=== PATIENT | female | born 1935 | race Caucasian/White ===

== ENCOUNTER 2019-06-24 17:57 | Inpatient (IN) | payer MEDICARE, OTHER, SELFPAY ==
[2019-06-24 18:04] VITALS: BMI 23.4
[2019-06-24 18:08] VITALS: BP 173/103; PULSE 50; RESP 18; TEMP 36.5; O2SAT 97
--- NOTE | 2019-06-24 18:10 | ED_ITS ---
Entered by Conrado Cassidy, acting as scribe for Monique Ga HPI - Abdominal Pain General: Chief Complaint: Abdominal Pain Stated Complaint: BACK AND ABD PAIN Time Seen by Provider: 06/24/19 18:14 History of Present Illness: HPI narrative: 84 yo female presents with abd and back pain. Pt states that all of her pain radiates to her left flank pain. She has had nausea but has not vomited. She denies any fevers or chills. She denies any vaginal discharge or bleeding. She does think in the past she is had a left ovarian cyst. Patient otherwise denies any complaints or concerns. MD elicited complaint: abdominal pain Associated Symptoms: Denies chills, coffee ground emesis, constipation, GI cramping, diarrhea, dysuria, fever(s), hematochezia, hematuria, hematemesis, melena, nausea, syncope and vomiting Review of Systems General: Reports: other (negative unless marked) Const: Denies: fever, chills, body aches, fatigue, malaise or diaphoresis Eyes: Denies: change in vision or blurry vision ENMT: Denies: throat pain, painful swallowing, hoarseness, ear pain, ear discharge, Change in hearing or nasal discharge Card: Denies: chest pain, palpitations, irregular heart rhythm, syncope, pre- syncope, shortness of breath on exertion or shortness of breath when lying down Resp: Denies: shortness of breath, productive cough, non-productive cough, wheezing, coughing up blood or chest congestion GI: Reports: abdominal pain; Denies: nausea, vomiting, vomiting blood, coffee grounds in vomit, diarrhea, constipation, cramping, blood in stool or black tarry stool : Reports: flank pain; Denies: painful urination, urinary frequency, urinary urgency, decreased urine ouput, urinary incontinence or blood in urine Musc: Denies: neck pain, back pain, extremity pain, extremity swelling, joint pain, joint swelling, joint warmth or joint stiffness Skin/Breast: Denies: rash, skin tenderness or yellow skin Neuro: Denies: headache, numbness in extremities, weakness in extremities, changes in sensation, lack of coordination, difficulty walking, dizziness, vert igo or confusion Endo: Denies: excessive thirst, tired all the time, cold intolerance, excessive sweating, flushing or hot flashes Nba/Lymph: Denies: easy bruising, easy bleeding, petechiae or enlarged lymph nodes All/Imm: Denies: hives, throat swelling, tongue swelling, facial swelling or acute wheezing PFSH ED PFSH: Medical History (Updated 06/25/19 @ 00:13 by Monique Ga) Diabetes GERD (gastroesophageal reflux disease) Hypertension Osteoporosis Uterine cancer Surgical History (Updated 06/24/19 @ 18:35 by Conrado Cassidy) H/O arthroplasty H/O arthroscopy Social History Smoking and tobacco status: former smoker Physical Exam Const: COMMON NORMALS: no apparent distress, oriented x3, no limitations, healthy appearing and well nourished EXAM LIMITATIONS: no altered mental status GENERAL APPEARANCE: cooperative, well kempt and well developed ORIENTATION/CONSCIOUSNESS: Yes awake HENMT: COMMON NORMALS: normocephalic, head/scalp atraumatic, hearing grossly normal bilaterally, external ears normal, EAC's normal, external nose normal and moist oral mucous membranes HEAD & SCALP: normal to inspection, normocephalic and atraumatic FACE & SINUS: normal facial exam and face symmetric NOSE: external nose normal and nares normal EXTERNAL EAR: Yes external ears normal EXTERNAL AUDITORY CANAL: EAC's normal MOUTH: oral and palatal mucosa normal and tongue normal Eye: COMMON NORMALS: PERRL, EOMs intact bilaterally, conjunctivae normal and no scleral icterus GENERAL EYE: normal appearance of both eyes and normal light reflex CONJUNCTIVA: Yes conjunctivae normal SCLERA: sclerae normal CORNEA: Yes corneas normal PUPIL: Yes PERRL DIRECT OPHTHALMOSCOPY: Yes normal light reflex Neck/C-Spine: COMMON NORMALS: full ROM, no lymphadenopathy, supple, no meningeal signs and no JVD GENERAL: Yes normal visual inspection and Yes trachea midline CERVICAL SPINE: Yes cervical ROM normal Chest: COMMONS NORMALS: inspection of chest normal and palpation of chest normal Resp: COMMON NORMALS: normal respiratory effort, no retractions, no use of accessory muscles and clear to auscultation bilaterally EFFORT & INSPECTION: Yes able to speak in complete sentences AUSCULTATION: clear to auscultation bilaterally Cardio: COMMON NORMALS: no JVD, regular rate, regular rhythm, S1 normal heart sound, S2 normal heart sound, no gallops, no clicks, no murmurs and no rub JUGULAR VENOUS DISTENTION: no JVD RATE: regular rate RHYTHM: regular rhythm HEART SOUNDS: S1 normal and S2 normal GI: COMMON NORMALS: soft to palpation and no masses INSPECTION: Yes normal to inspection PALPATION: Yes soft and Yes tender : BLADDER/KIDNEY EXAM: Yes CVA tenderness Back/Pelvis: GENERAL BACK: Yes CVA tenderness Extremity: COMMON NORMALS: normal to inspection, full ROM, normal capillary refill, no joint enlargement, no clubbing, cyanosis or edema and no calf tenderness Neuro: COMMON NORMALS: oriented x3, CN's II-XII intact bilaterally, moves all extremities, no focal motor deficits and no sensory deficits noted MENINGEAL SIGNS: Yes no meningeal signs Psych: COMMON NORMALS: mental status grossly normal, thought process normal, cooperative, affect normal, speech normal and activity/motor behavior normal APPEARANCE: Yes well kempt SPEECH: Yes normal speech THOUGHT PROCESS: normal thought process Skin: COMMON NORMALS: no rashes or lesions noted, skin turgor normal, no jaundice, no petechiae and no mottling GENERAL SKIN EXAM: no rashes or lesions noted and turgor normal Course Vital Signs: Vital signs: Vital Signs Temperature 97.7 F 06/24/19 18:08 Pulse Rate 76 06/24/19 20:06 Respiratory Rate 18 06/24/19 21:27 Blood Pressure 168/85 06/24/19 20:06 Pulse Oximetry 96 06/24/19 21:27 MDM - Abdominal Pain MDM Narrative: Medical decision making narrative: Melissa is a nice 84-year-old female who comes in complaining of left flank pain. Incidentally she had a finding of dilated intra-and extrahepatic bile ducts. Ultrasound does not reveal any signs of cholecystitis and she does not have any laboratory abnormalities consistent with common bile duct stone. Patient's pain is all on the left side and it does appear as though she has some type of obstruction either a stone or stricture in the proximal ureter. She has associated hydronephrosis and she also has a UTI. I reviewed the case in full with Dr. Castillo and he agrees to consult on the patient would like her n.p.o. after midnight. I reviewed the case with Dr. Tucker and she is agreeable to admission. Lab Data: Attestation: I reviewed the patient's lab results. Labs: Lab Results 06/24/19 06/24/19 06/24/19 Range/Units 18:28 18:28 21:19 WBC 11.4 H (4.0-10.0) 10^3/ uL RBC 4.13 (4.1-5.3) 10^6/u L Hgb 11.6 (11.5-15.3) g/dL Hct 35.4 L (37.0-47.0) % MCV 85.7 (81-99) fL MCH 28.1 (28.0-34.0) pg MCHC 32.8 (30.0-36.0) g/dL RDW 15.0 (12.1-15.1) % Plt Count 275 (130-400) 10^3/c mm MPV 9.9 (7.4-10.4) fL Neut % (Auto) 71.2 % Lymph % (Auto) 18.8 % [place] % (Auto) 5.3 % Eos % (Auto) 3.8 % Baso % (Auto) 0.5 % Neut # (Auto) 8.1 H (1.8-7.7) 10^3/u L Lymph # (Auto) 2.1 (0.8-4.8) 10^3/u L [place] # (Auto) 0.6 (0.2-0.9) 10^3/u L Eos # (Auto) 0.4 (0.0-0.8) 10^3/u L Baso # (Auto) 0.1 (0.0-0.1) 10^3/u L Nucleated RBC % (a uto) 0 % Nucleated RBCs # 0.0 /100WBC Sodium 140 (136-145) mmol/L Potassium 3.8 (3.5-5.1) mmol/L Chloride 102 (98-107) mmol/L Carbon Dioxide 26 (22-29) mmol/L Anion Gap 15.8 (5-19) BUN 24 H (8-23) mg/dL Creatinine 1.6 H (0.5-0.9) mg/dL Glucose 202 H (65-115) mg/dL Calculated Osmolal ity 293 (285-295) mOsm/k g Lactic Acid (0.5-2.2) mmol/L Calcium 10.0 (8.5-10.5) mg/dL Total Bilirubin 0.2 (0.15-1.2) mg/dL AST 13 (0-32) U/L ALT 10 (0-33) U/L Alkaline Phosphata se 95 (35-105) IU/L Total Protein 7.8 (6.6-8.7) g/dL Albumin 4.0 (3.5-5.2) g/dL Globulin 3.8 (1.3-4.6) g/dL Lipase 45 (13-60) U/L Urine Color Yellow (Yellow) Urine Appearance Cloudy (CLEAR) Urine pH 5 (5-7) Ur Specific Gravit y 1.020 (1.005-1.030) Urine Protein Neg (Negative) Urine Glucose (UA) Norm (Normal) Urine Ketones Negative (Negative) Urine Blood 3+ H (Negative) Urine Nitrate Negative (Negative) Urine Bilirubin Neg (NEGATIVE) Urine Urobilinogen Norm (Negative) mg/dL Ur Leukocyte Talia ase 2+ H (Negative) Urine RBC 10-15 H (0-2) /hpf Urine WBC >100 H (0-5) /hpf Ur Squamous Epith Cells 0-4 H (0-5) Urine Bacteria 3+ H (NONE) 06/24/19 Range/Units 22:30 WBC (4.0-10.0) 10^3/ uL RBC (4.1-5.3) 10^6/u L Hgb (11.5-15.3) g/dL Hct (37.0-47.0) % MCV (81-99) fL MCH (28.0-34.0) pg MCHC (30.0-36.0) g/dL RDW (12.1-15.1) % Plt Count (130-400) 10^3/c mm MPV (7.4-10.4) fL Neut % (Auto) % Lymph % (Auto) % [place] % (Auto) % Eos % (Auto) % Baso % (Auto) % Neut # (Auto) (1.8-7.7) 10^3/u L Lymph # (Auto) (0.8-4.8) 10^3/u L [place] # (Auto) (0.2-0.9) 10^3/u L Eos # (Auto) (0.0-0.8) 10^3/u L Baso # (Auto) (0.0-0.1) 10^3/u L Nucleated RBC % (a uto) % Nucleated RBCs # /100WBC Sodium (136-145) mmol/L Potassium (3.5-5.1) mmol/L Chloride (98-107) mmol/L Carbon Dioxide (22-29) mmol/L Anion Gap (5-19) BUN (8-23) mg/dL Creatinine (0.5-0.9) mg/dL Glucose (65-115) mg/dL Calculated Osmolal ity (285-295) mOsm/k g Lactic Acid 1.7 (0.5-2.2) mmol/L Calcium (8.5-10.5) mg/dL Total Bilirubin (0.15-1.2) mg/dL AST (0-32) U/L ALT (0-33) U/L Alkaline Phosphata se (35-105) IU/L Total Protein (6.6-8.7) g/dL Albumin (3.5-5.2) g/dL Globulin (1.3-4.6) g/dL Lipase (13-60) U/L Urine Color (Yellow) Urine Appearance (CLEAR) Urine pH (5-7) Ur Specific Gravit y (1.005-1.030) Urine Protein (Negative) Urine Glucose (UA) (Normal) Urine Ketones (Negative) Urine Blood (Negative) Urine Nitrate (Negative) Urine Bilirubin (NEGATIVE) Urine Urobilinogen (Negative) mg/dL Ur Leukocyte Talia ase (Negative) Urine RBC (0-2) /hpf Urine WBC (0-5) /hpf Ur Squamous Epith Cells (0-5) Urine Bacteria (NONE) Imaging Data ^: US: Radiologist's impression: Ultrasound pelvis, tech interpretation -evidence of hysterectomy. No ovaries or uterus seen. Discharge Plan Discharge Patient Disposition: Admitted As Inpatient Admit Provider: Saira Tucker Clinical Impression: Acute pyelonephritis Condition: Stable Coding Level of Care Code ED Chainman for Chg Fwd Exam Comprehensive The documentation recorded by the Khanh hendricks Kialy, accurately reflects the service I personally performed and the decisions made by Sury rubalcava Eli N Jun 24, 2019 17:57
[2019-06-24 18:31] LABS: Basophils # 0.1 10^3/uL (0.0-0.1); Basophils % 0.5 %; Eosinophils # 0.4 10^3/uL (0.0-0.8); Eosinophils % 3.8 %; Hematocrit 35.4 % (37.0-47.0); Hemoglobin 11.6 g/dL (11.5-15.3); Lymphocytes # 2.1 10^3/uL (0.8-4.8); Lymphocytes % 18.8 %; Mean Corpuscular HGB Conc 32.8 g/dL (30.0-36.0); Mean Corpuscular Hemoglobin 28.1 pg (28.0-34.0); Mean Corpuscular Volume 85.7 fL (81-99); Mean Platelet Volume 9.9 fL (7.4-10.4); Monocytes # 0.6 10^3/uL (0.2-0.9); Monocytes % 5.3 %; Neutrophils # 8.1 10^3/uL (1.8-7.7); Neutrophils % 71.2 %; Nucleated Red Blood Cells % 0 %; Platelet Count 275 10^3/cmm (130-400); Red Blood Count 4.13 10^6/uL (4.1-5.3); White Blood Count 11.4 10^3/uL (4.0-10.0)
--- NOTE | 2019-06-24 18:31 | CTR_ITS ---
PROCEDURE INFORMATION: Exam: CT Abdomen And Pelvis Without And With Contrast Exam date and time: 06/24/2019 6:46 PM Age: 84 years old Clinical indication: Abdominal pain; Left; Prior surgery; Surgery date: 6+ months; Surgery type: Hyst; Patient HX: L flank pain radiating to front; Additional info: Lt flank/llq pain TECHNIQUE: Imaging protocol: Computed tomography of the abdomen and pelvis without and with intravenous contrast. Total DLP: 830.88 mGy-cm Radiation optimization: All CT scans at this facility use at least one of these dose optimization techniques: automated exposure control; mA and/or kV adjustment per patient size (includes targeted exams where dose is matched to clinical indication); or iterative reconstruction. Contrast material: VISI 320; Contrast volume: 75 ml; Contrast route: 20G; COMPARISON: US pelvic complete* [id number] 06/24/2019 7:12 PM FINDINGS: Liver: There are subcentimeter cysts in the liver with benign features. Follow-up is not necessary. Gallbladder and bile ducts: Cholelithiasis. There is sludge in the gallbladder. There is intrahepatic and extrahepatic ductal dilatation. Pancreas: Normal. No ductal dilation. Spleen: Normal. No splenomegaly. Adrenals: Normal. No mass. Kidneys and ureters: Mild to moderate left hydronephrosis and proximal left hydroureter. There is left perinephric stranding. Approximately 3.4 cm distal to the left UPJ there is some ill-defined increased density within the left ureter and abrupt transition to normal ureteral caliber. This is concerning for stricture and/or other filling defect such as tumor. There is decreased perfusion of the left kidney a relation to the right. Stomach and bowel: Colonic constipation is present. Appendix: No evidence of appendicitis. Intraperitoneal space: Unremarkable. No free air. No significant fluid collection. Vasculature: Calcified plaque is present within multiple vascular structures. Lymph nodes: Unremarkable. No enlarged lymph nodes. Bladder: Unremarkable as visualized. Reproductive: The uterus is not visualized, consistent with hysterectomy. Bones/joints: There are degenerative changes in the visualized spine. Chronic L2 and L3 compression fractures. Soft tissues: Unremarkable. CT/CT abdomen pelvis wo/w [id number] IMPRESSION: 1. There is increased density in the left ureter 3.4 cm distal to the left UPJ raising concern for stricture and/or neoplasm. There are associated obstructive changes as described above. 2. There are stones and sludge in the gallbladder with associated intrahepatic and extrahepatic ductal dilatation. 3. Colonic constipation is present. Radiation Dose CTDIVOL = (mGy): DLP = 830.88 (mGy-cm)
--- NOTE | 2019-06-24 18:33 | USR_ITS ---
PROCEDURE INFORMATION: Exam: US Pelvis Complete, Transabdominal Exam date and time: 06/24/2019 7:25 PM Age: 84 years old Clinical indication: Other: Vague abd pain; Prior surgery; Surgery date: 6+ months; Surgery type: of patient thinks she had hysterectomy many years for ut CA. PT does not remember that surgery. PT has mid line scar from sym to umb; Patient HX: Consensus of all present that she has had a hysterectomy. PT having CT now. TECHNIQUE: Imaging protocol: Real-time transabdominal pelvic ultrasound with image documentation. Complete exam. COMPARISON: CR Hip 2-3v RIGHT wwo Pelv* [id number] 01/20/2019 2:02 PM FINDINGS: Uterus/cervix: Uterus not visualized consistent with history of hysterectomy. Right adnexa: Ovary not visualized. Left adnexa: Ovary not visualized. Free fluid: None. Bladder: Normal. Other findings: Ovaries not visualized. US/US pelvic complete* [id number] IMPRESSION: No abnormalities are seen. The uterus and ovaries are not visualized.
[2019-06-24] MEDS: sodium chloride 0.9% 1,000 ML 100 ML IV ×2 (18:41→22:56)
[2019-06-24] MEDS: ondansetron 2 mg/ML SDV 2 mL 4 MG IVP ×2 (18:44→21:26)
[2019-06-24] MEDS: morphine 4 mg/mL SDV 1 mL IVP ×2 (18:44→21:27)
[2019-06-24 18:48] LABS: Alanine Aminotransferase 10 U/L (0-33); Alkaline Phosphatase 95 IU/L (35-105); Anion Gap 15.8 (5-19); Aspartate Amino Transferase 13 U/L (0-32); Blood Urea Nitrogen 24 mg/dL (8-23); Carbon Dioxide 26 mmol/L (22-29); Chloride 102 mmol/L (98-107); Globulin 3.8 g/dL (1.3-4.6); Glucose 202 mg/dL (65-115); Lipase 45 U/L (13-60); Osmolality Calculated 293 mOsm/kg (285-295); Potassium 3.8 mmol/L (3.5-5.1); Sodium 140 mmol/L (136-145); Total Bilirubin 0.2 mg/dL (0.15-1.2); Total Protein 7.8 g/dL (6.6-8.7)
[2019-06-24 20:06] VITALS: BP 168/85; PULSE 76; RESP 16; O2SAT 94
[2019-06-24] MEDS: sodium chloride 0.9% 1,000 ML 999 ML IV (20:08)
[2019-06-24] MEDS: iodixanol 320 mg/mL 100mL Btl IV (20:24)
--- NOTE | 2019-06-24 20:49 | US_ITS ---
WS: [id number] ABDOMINAL ULTRASOUND REASON FOR EXAM: Abdominal Pain TECHNIQUE: Grayscale and Doppler ultrasound examination of the abdomen. FINDINGS: Pancreas: Within normal limits Abdominal aorta and IVC: Within normal limits Liver: Liver measures 15.55 cm in length. Normal hepatopedal circulation. Gallbladder: Gallbladder wall thickness measures 0.31 cm. Contracted gallbladder with multiple stones . Common bile duct dilated 1.14 cm no stones in the duct were seen. Left kidney: Left kidney measures 9.80 cm x 5.33 cm x 4.98 cm. Benign cystno stones or hydronephrosis . Right kidney: Right kidney measures 9.87 cm x 4.03 cm x 3.81 cm. Benign cysts presentno stones or hyd ronephrosis. Spleen: Spleen measures 9.28 cm US/US abdomen complete* [id number] IMPRESSION: Acute cholecystitis with cholelithiasis Markedly dilated common bile duct. No definite stones in the duct were seen. Benign cyst both kidneys.
[2019-06-24 21:27] VITALS: RESP 18; O2SAT 96
[2019-06-24 21:39] LABS: Add Urine Culture? Yes; Bacteria Urine 3+; Bilirubin Urine Neg (NEGATIVE); Blood Urine 3+ (Negative); Glucose Urine UA Norm (Normal); Ketones Urine Negative (Negative); Leukocyte Esterase Urine 2+ (Negative); Nitrate Urine Negative (Negative); Protein Urine Neg (Negative); Squamous Epithelial Cell Urine 0-4 (0-5); Urine Appearance Cloudy (CLEAR); Urine Color Yellow (Yellow); Urobilinogen Urine Norm (Negative); WBC Urine >100 /hpf (0-5); pH Urine 5 (5-7)
[2019-06-24] MEDS: metoclopramide 5 mg/mL SDV 2 mL 10 MG IV (22:58)
[2019-06-24 23:01] LABS: Lactic Sepsis W/Reflex 1.7 mmol/L (0.5-2.2)
[2019-06-24 23:13] VITALS: BP 138/82; PULSE 74; RESP 16; O2SAT 94
[2019-06-24] MEDS: cefTRIAXone 1,000 MG in sodium chloride 0.9% (plus) 50 ML 100 MG IV (23:40)
[2019-06-25] VITALS (21 sets, daily range): BP systolic 94–142; BP diastolic 52–84; PULSE 68–111; RESP 14–27; TEMP 36.5–38.3; O2SAT 92–99
--- NOTE | 2019-06-25 | SC_ITS ---
WS: [id number] INTRAOPERATIVE TECHNIQUE: 2 Spot fluoroscopic images for intraoperative purposes. FLUOROSCOPY TIME: 37 seconds CLINICAL INFORMATION: PICS FROM OR COMPARISON: None. Clinical history and SC/C-arm FL for Urology IMPRESSION: Images obtained for intraoperative purposes.
--- NOTE | 2019-06-25 | SCC_ITS ---
Procedure Done: Cystoscopy, left ureteral stent placement Left retrograde pyelogram 37 seconds of fluoroscopic guidance, for a cumulative dose of 5.1 mGy, was provided to Dr. Castillo by the radiology department. C-arm images of the abdomen were saved for the patient's permanent record. ESPERANZA
--- NOTE | 2019-06-25 00:29 | P.HP_ITS ---
Providers/Chief Complaint Admitting Physician: Saira Tucker MD Primary Care Provider: Abdi Mack Chief Complaint: BACK AND ABD PAIN History of Present Illness Melissa Fermin is a 84 year old female with PMH HTN, DM, osteoarthritis, h/o uterine ca s/p hysterectomy, h/o recurrent UTIs at least since 3 years treated every 3-4 weeks with recurrent rounds of abx, which help alleviate symptoms for a few weeks at a time. Episodes described as burning micturition, abdominal discofort and foul smelling urine. She had a recent US renal per 's report 1 week ago which showed a renal cyst. She was referred to [facility],but hasnt made appointment yet. Presents today with c/o 3-4 days of recurrent UTI symptoms for which she started taking po abx (doesnt remember name of abx, per review of home meds is nitrofurantoin). This evening when returned from work, he found her to be in severe LLQ pain, doubled over with shaking chills and multiple episodes of vomiting. She was brought to the ER, afebrile on admission but with chills, resolved with iv tylenol. She is currently comfortable and asleep at the time of my evaluation. Vitals are stable. Labs notable for leukocytosis 11.4, cr 1.6 (baseline from 2014 is 1.5). UA with >100WBC, 2+ Leukocyte esterase and 3+ bacteria. Ct KUB with increased density in the left ureter 3.4 cm distal to the left UPJ raising concern for stricture and/or neoplasm with perinephric stranding. Incidental note made of tones and sludge in the gallbladder with associated intrahepatic and extrahepatic ductal dilatation, however LFTs are WNL and no c/o pain in RUQ. Last urine cx from 2013 is with soto-S E.coli. Review of Systems General: Reports: 10 or more systems reviewed and unremarkable except in HPI and below Const: Denies: fever, chills or body aches Eyes: Denies: change in vision, blurry vision or photophobia ENMT: Reports: hoarseness; Denies: throat pain, enlarged tonsils, painful swallowing or nasal congestion Card: Denies: chest pain, palpitations, irregular heart rhythm, edema, swelling of feet/ankles, lightheadedness, pre-syncope, shortness of breath on exertion or shortness of breath when lying down Resp: Denies: shortness of breath, productive cough, non-productive cough, wheezing, stridor, pain on inspiration, change in phlegm color, coughing up blood or chest congestion GI: Denies: abdominal pain, nausea, vomiting, vomiting blood, coffee grounds i n vomit, difficulty swallowing, heartburn/indigestion, diarrhea, constipation, cramping, change in stool character, blood in stool or black tarry stool : Denies: flank pain, difficulty urinating, painful urination, urinary frequency, urinary urgency, urinary hesitancy or blood in urine Musc: Denies: neck pain, back pain, extremity pain, joint swelling, joint warmth or deformity Neuro: Denies: headache, numbness in extremities, weakness in extremities, changes in sensation, difficulty walking, frequent falls, dizziness, vertigo, behavioral changes, slurred speech or seizure-like activity Psych: Denies: anxiety, depression, suicidal ideation or homicidal ideation Endo: Denies: excessive urination, excessive thirst, tired all the time, cold intolerance or hot flashes Nba/Lymph: Denies: easy bruising or easy bleeding Medications/Allergies Home Medications Medication Instructions Recorded Confirmed Last Taken Type Unable to Assess 06/24/19 06/24/19 Unknown History Allergies Allergy/AdvReac Type Severity Reaction Status Date / Time No Known Allergies Allergy Verified 06/24/19 18:07 PFSH Acute PFSH: Medical History Diabetes GERD (gastroesophageal reflux disease) Hypertension Osteoporosis Uterine cancer Surgical History H/O arthroplasty H/O arthroscopy Social History Smoking and tobacco status: former smoker Vitals/I&O/Wt Last Vital Signs Temp 97.7 F 06/24/19 18:08 Pulse 68 06/25/19 00:10 Resp 16 06/25/19 00:10 BP 142/84 06/25/19 00:10 Pulse Ox 94 06/25/19 00:10 Weight last 48 hrs Weight 54.431 kg Physical Exam Narrative: EXAM NARRATIVE: GEN: Awake, alert and oriented, no acute distress, lying comfortably at this time. CVS: S1S2 N RS: CTA B/L Abd: Soft, nt/nd , bs+ FISCAL AGENT: no focal neuro deficits EXT: B/L LE edema, stockings in place Data : 06/24/19 18:28 06/24/19 18:28 Micro: Microbiology 06/24/19 22:35 Blood Culture - Preliminary Blood SPECIMEN COLLECTED 06/24/19 22:30 Blood Culture - Preliminary Blood SPECIMEN COLLECTED A&P Assessment and plan (1) Acute pyelonephritis: Status: Acute Code(s): N10 - Acute pyelonephritis (2) Obstruction of left ureteropelvic junction (UPJ): Status: Acute Code(s): N13.5 - Crossing vessel and stricture of ureter without hydronephrosis Additional A&P Information Admit to med/surg floor 1. Acute pyelopnephritis in the setting of left UPJ juction obstruction Start ceftriaxone 1g iv q24h empirically while awaiting culture results Check blood cultures Dr. Ga from ER discussed case with urology Dr. Castillo, patient likely planned for procedure to relieve obstruction NPO after midnight for same IvF 75 cc/hr until NPO prn zofran for nausea Tylenol, tramadol for pain and fever 2. Hypertension: Home medication list not yet confirmed, she has nifedipine and losartan-HCTZ in review screen. Hold losartan-HCTZ for now, BP 109/66 currently. 3. Hyperlipidemia: atorvastatin 10mg 4. Diabetes mellitus: insulin sliding scale full code DVT ppx: hold tonight, can be started post procedure Attestations Medical Necessity Statement*: >2midnight admission for pyelonephritis with obstruction, need for surgical intervention and iv abx Coding Level of Care Code Acute Certified Driver Examiner for [facility] Fwd Diagnoses Acute pyelonephritis N10 Obstruction of left ureteropelvic junction (UPJ) N13.5
[2019-06-25 01:42] LABS: Glucose Point of Care 185 mg/dL (70-110)
[2019-06-25 06:02] LABS: Basophils # 0.1 10^3/uL (0.0-0.1); Basophils % 0.3 %; Eosinophils % 0.1 %; Hematocrit 36.3 % (37.0-47.0); Hemoglobin 11.6 g/dL (11.5-15.3); Lymphocytes # 0.7 10^3/uL (0.8-4.8); Lymphocytes % 3.5 %; Mean Corpuscular Hemoglobin 27.7 pg (28.0-34.0); Mean Corpuscular Volume 86.6 fL (81-99); Monocytes # 0.6 10^3/uL (0.2-0.9); Neutrophils % 91.9 %; Nucleated Red Blood Cells % 0 %; Platelet Count 227 10^3/cmm (130-400); Red Blood Count 4.19 10^6/uL (4.1-5.3); Red Cell Distribution Width 15.3 % (12.1-15.1); White Blood Count 19.6 10^3/uL (4.0-10.0)
--- NOTE | 2019-06-25 06:09 | P.CONIM_ITS ---
Providers/Reason For Consult Consulting Physican/Specialty*: Castillo/Urology Reason for Consult*: LEFT proximal ureteral obstruction and UTI Requesting SharronanJagdeep Tucker Attending Physician: Saira Tucker MD Primary Care Provider: Abdi Mack History of Present Illness History of Present Illness Melissa Fermin is a 84 year old female admitted through ED last night with abrupt onset of refractory LEFT renal colicky symptoms, severe nausea and emesis, clinical evidence of upper urinary tract UTI including chills. CT findings consistent with LEFT proximal ureteral obstruction of unclear etiology (soft tissue density roughly 3-4 cm below UPJ, not characteristic for stone [ddx: stricture or neoplasm ]). The radiographic and clinical picture, though is more typical for acute obstruction. Additional workup also showed WBC of 11.4, mildly elevated Creatinine, Pyuria and bacteriuria. Complicated by long history of ELIOT consistent with cystitis:dysuria, odor, abdominal pain. Frequent use of antibiotics with improvement temporarily. No recent cultures available. Reportedly on Nitrofurantoin at time of symptomatic increase. Historically it sounds as though she does not completely resolve after antibiotic therapy. Suspicious for chronic cystitis. Other clinical variables include Diabetes, Hypertension, and history of uterine Ca. Admitted for further evaluation and treatment. This morning her white count increased to 19.7, creatinine 2.3. Hemodynamically she is still stable. I have recommended a cystoscopy and left ureteral stent placement with delayed reevaluation of the ureter after infection resolution. Working diagnosis is likely infectious sludge or debris as a cause of her obstructive process as opposed to more chronic stricture or neoplastic process. Review of Systems Const: Reports: fever, chills, fatigue and malaise Eyes: Denies: change in vision or eye redness ENMT: Denies: painful swallowing or oral sores/lesions Card: Denies: chest pain, palpitations or irregular heart rhythm Resp: Denies: shortness of breath, productive cough, non-productive cough or wheezing GI: Reports: abdominal pain, nausea and vomiting; Denies: difficulty swallowing : Reports: flank pain and painful urination Musc: Denies: neck pain or back pain Skin/Breast: Denies: rash or redness Neuro: Denies: headache, weakness in extremities or difficulty walking Psych: Denies: anxiety or depression Endo: Denies: excessive urination or hot flashes Nba/Lymph: Denies: easy bruising or easy bleeding All/Imm: Denies: hives Meds/Allergies Home Medications and Allergies Home Medications Medication Instructions Recorded Confirmed Type ascorbic acid (vitamin C) [Vitamin 500 mg PO DAILY 06/25/19 06/25/19 History C] lisinopril 10 mg PO BEDTIME 06/25/19 06/25/19 History losartan-hydrochlorothiazide 1 tab PO DAILY 06/25/19 06/25/19 History [Hyzaar] nifedipine 60 mg PO DAILY 06/25/19 06/25/19 History nitrofurantoin macrocrystal 100 mg PO Q12H 06/25/19 06/25/19 History Allergies Allergy/AdvReac Type Severity Reaction Status Date / Time No Known Allergies Allergy Verified 06/24/19 18:07 Current Medications Current Medications Generic Name Dose Route Start Last Admin Trade Name Freq PRN Reason Stop Dose Admin Sodium Chloride 1,000 mls @ 100 mls/hr 06/24/19 18:30 06/24/19 18:41 Sodium Chloride 0.9% IV 100 mls/hr .Q10H KURT Administration PFSH Acute PFSH: Medical History Diabetes GERD (gastroesophageal reflux disease) Hypertension Osteoporosis Ureteral obstruction, left Uterine cancer Surgical History H/O arthroplasty H/O arthroscopy Social History Smoking and tobacco status: former smoker Vitals/I&O/Wt Last Vital Signs Temp 98.1 F 06/25/19 04:00 Pulse 96 06/25/19 04:00 Resp 19 H 06/25/19 04:00 BP 90/50 06/25/19 04:00 Pulse Ox 92 06/25/19 04:00 06/24/19 06/24/19 06/25/19 14:59 22:59 06:59 Intake Total 0 / 0 Output Total 300 / 300 Balance -300 / -300 Weight last 48 hrs Weight 120 lb Physical Exam Const: COMMON NORMALS: oriented x3 and alert; negative for healthy appearing GENERAL APPEARANCE: cooperative and well kempt ORIENTATION/CONSCIOUSNESS: not confused HENMT: COMMON NORMALS: normocephalic and head/scalp atraumatic HEAD & SCALP: normocephalic and atraumatic Eye: COMMON NORMALS: conjunctivae normal and no scleral icterus CONJUNCTIVA: Yes conjunctivae normal Neck/C-Spine: COMMON NORMALS: full ROM GENERAL: Yes normal visual inspection Lymph: LYMPHATIC: no lymphadenopathy noted and No lymphedema Chest: COMMONS NORMALS: inspection of chest normal Resp: COMMON NORMALS: normal respiratory effort and clear to auscultation bilaterally EFFORT & INSPECTION: No labored and No actively coughing AUSCULTATION: clear to auscultation bilaterally Cardio: COMMON NORMALS: regular rate and regular rhythm RATE: regular rate RHYTHM: regular rhythm GI: COMMON NORMALS: soft to palpation; negative for non-tender PALPATION: Yes soft, Yes tender Details: LLQ and LUQ and No rebound tenderness present : BLADDER/KIDNEY EXAM: Yes CVA tenderness on the left OTHER: Bladder nondistended. Mildly tender. Back/Pelvis: GENERAL BACK: Yes CVA tenderness Extremity: COMMON NORMALS: no clubbing, cyanosis or edema Neuro: COMMON NORMALS: oriented x3 SENSORIUM/ORIENTATION: Yes alert Psych: COMMON NORMALS: mental status grossly normal and thought process normal APPEARANCE: Yes grossly normal and Yes well kempt ATTITUDE: Yes calm and Yes engaged THOUGHT PROCESS: normal thought process Skin: COMMON NORMALS: no rashes or lesions noted and no jaundice GENERAL SKIN EXAM: no rashes or lesions noted Data Micro: Micro: Microbiology 06/24/19 22:35 Blood Culture - Pr eliminary Blood SPECIMEN [facility] 06/24/19 22:30 Blood Culture - Pr eliminary Blood SPECIMEN [facility] A&P Assessment and plan (1) Ureteral obstruction, left: Demonstrated on CT scan 06/24/2019 performed for left renal colicky symptoms and evidence of UTI. No clear evidence of a stone but there is evidence of a left proximal ureteral soft tissue density of unclear etiology with differential diagnosis including infectious sludge, stricture, neoplastic process. The latter 2 I think are less likely. Recommended emergency left ureteral stent placement. Status: Acute Code(s): N13.5 - Crossing vessel and stricture of ureter without hydronephrosis (2) Acute pyelonephritis: Complicated by history of recurrent UTIs more consistent with chronic cystitis likely incomplete resolution with short course antibiotic therapy over many years. Further complicated by evidence of an acute obstruction of her left proximal ureter on CT scan 06/24/2019 Plan for emergency stent placement. Initially white count was 11.4 but increased to 19.7 overnight. Has remained hemodynamically stable. Status: Acute Code(s): N10 - Acute pyelonephritis (3) Diabetes: Status: Acute Code(s): E11.9 - Type 2 diabetes mellitus without complications (4) Acute kidney injury: Status: Acute Code(s): N17.9 - Acute kidney failure, unspecified Consult Attestations Medical Necessity Statement: Findings consistent with obstructive pyelonephritis necessitating intervention. Coding Level of Care Code Acute Residential Building Inspector for [facility] Fwd Diagnoses Ureteral obstruction, left N13.5 Acute pyelonephritis N10 Diabetes E11.9 Acute kidney injury N17.9
[2019-06-25 06:23] LABS: Anion Gap 18.6 (5-19); Blood Urea Nitrogen 25 mg/dL (8-23); Calcium 9.2 mg/dL (8.5-10.5); Carbon Dioxide 19 mmol/L (22-29); Chloride 103 mmol/L (98-107); Glucose 232 mg/dL (65-115); Osmolality Calculated 288 mOsm/kg (285-295); Potassium 3.6 mmol/L (3.5-5.1); Sodium 137 mmol/L (136-145)
[2019-06-25 06:47] LABS: Glucose Point of Care 222 mg/dL (70-110)
--- NOTE | 2019-06-25 08:12 | P.OP_ITS ---
Operative Report Date of procedure: June 25, 2019 Pre-op Diagnosis: Obstructive pyelonephritis (left proximal ureteral obstruction) Post-op diagnosis: same Procedure Done: Cystoscopy, left ureteral stent placement Left retrograde pyelogram Specimens removed/disposition: 7 [place] by 24 cm double-pigtail stent without string Pathology: none sent Surgeon: Jonathan Anesthesia: General Estimated blood loss: None Urine output: Not measured Complications: None Findings: 7 [place] by 24 cm double-pigtail stent without string placed without difficulty Condition: stable Disposition: PACU Brief History: Melissa is a very pleasant 84-year-old white female who I evaluated for the first time today at the request of the emergency department and the hospitalist service for what appears to be obstructive pyelonephritis on the left. Typical pyelonephritis symptoms at presentation. Long history of recurrent UTIs clinically suspicious for CHRONIC CYSTITIS. Mildly elevated white count and creatinine at evaluation. CT scan in the emergency department showed obstructive changes associated with soft tissue type filling defect (no clear stone) in the left proximal ureter. Treated with antibiotics, given supportive care, and urology consultation Still afebrile this morning but white count had increased to 19.7 and creatinine increased from 1.6-2.3. Recommended emergent left ureteral stent placement Reviewed the need for secondary endoscopic examination procedure after recovery from infection to evaluate the source of the obstruction. Discussed the possibility of a more serious underlying obstructive phenomenon but I expect that it is probably infectious sludge Procedure: After emergent evaluation examination and obtaining of informed consent she was taken to the operating suite on 06/25/2019 where general anesthesia was administered without difficulty after appropriate timeout was performed, SCDs confirmed to be functioning, preoperative antibiotics ad ministered, beta-rhonda protocol confirmed. Prepped and draped in usual sterile fashion in dorsolithotomy position pain careful attention to voiding pressure points. 21 [place] cystoscope with 30 degree lens was introduced into the urethra meatus and advanced into the bladder under videoscopy. The bladder was systematically examined. Flexible tip guidewire was advanced up the left ureter into the area of the left renal pelvis. An open-ended ureteral catheter was advanced over the guidewire guidewire removed small amount of contrast injected to confirm adequate position of the catheter in the collecting system. Wire was replaced. Catheter removed. A 7 [place] by 24 cm double-pigtail stent was advanced over the guidewire through the cystoscope into appropriate position as confirmed via fluoroscopy and cystoscopy. Bladder was drained with a 16 [place] Meyers catheter. She tolerated procedure well without complications and awakened in the operating room and returned to the care of room in stable condition.
--- NOTE | 2019-06-25 08:20 | ANES.PREANE2 ---
Pre-Anesthetic Assessment Pre-Anesthetic Assessment: Height/Weight: Height 1.52 m Weight 54.431 kg Temp Pulse Resp BP Pulse Ox 99.5 F 77 14 94/52 93 06/25/19 07:29 06/25/19 07:29 06/25/19 07:29 06/25/19 07:29 06/25/19 07:29 Preop Diagnosis: Obstructive pyelonephritis (left proximal ureteral obstruction) Proposed Procedure: Operation Date: 06/25/19 08:15 Proposed Procedures p Cystoscopy(Left) - Sven Castillo MD s Ureteral Stent Placement(Left) - Sven Castillo MD Last intake: Intake Last Liquid Date 06/24/19 Last Liquid Time 21:00 Last Solid Date 06/24/19 Last Solid Time 16:00 Social: Social History: Tobacco Pack years: 50+ Comment: quit 7y ago Exam: Pre-Anes Outpt Exam: alert and oriented x 3 CV/HEM: CV/HEM: CAD and HTN Comments: stent : : UTI Comments: left proximal stone Metabolic: Metabolic: DM Neuropsych: Comments: date 06/24/01 President [facility] Anesthetic Plan: ASA status: 3E Anesthesia: General Meds/Allergies Current Medications: Current Medications Generic Name Dose Route Start Last Admin Trade Name Freq PRN Reason Stop Dose Admin Sodium Chloride 1,000 mls @ 100 m ls/hr 06/24/19 18:30 06/24/19 18:41 Sodium Chloride 0.9% IV 100 mls/hr .Q10H KURT Administration Insulin Aspart 0 unit 06/25/19 08:00 06/25/19 07:23 Novolog SUBCUT 2 unit WM&BEDTIME KURT Administration Protocol PFSH Anesthesia PFSH: Medical History (Updated 06/25/19 @ 07:41 by Sven Castillo MD) Acute kidney injury Diabetes GERD (gastroesophageal reflux disease) Hypertension Osteoporosis Ureteral obstruction, left Uterine cancer Surgical History H/O arthroplasty H/O arthroscopy Social History Smoking and tobacco status: former smoker Data Anesthesia CBC & Chem 7: 06/25/19 05:25 06/25/19 05:25 Other Labs: Laboratory Results - last 48 hr 06/24/19 06/24/19 06/24/19 18:28 18:28 21:19 WBC 11.4 H RBC 4.13 Hgb 11.6 Hct 35.4 L MCV 85.7 MCH 28.1 MCHC 32.8 RDW 15.0 Plt Count 275 MPV 9.9 Neut % (Auto) 71.2 Lymph % (Auto) 18.8 Frontier % (Auto) 5.3 Eos % (Auto) 3.8 Baso % (Auto) 0.5 Neut # (Auto) 8.1 H Lymph # (Auto) 2.1 Frontier # (Auto) 0.6 Eos # (Auto) 0.4 Baso # (Auto) 0.1 Nucleated RBC % (auto) 0 Nucleated RBCs # 0.0 Sodium 140 Potassium 3.8 Chloride 102 Carbon Dioxide 26 Anion Gap 15.8 BUN 24 H Creatinine 1.6 H Glucose 202 H POC Glucose Calculated Osmolality 293 Lactic Acid Calcium 10.0 Total Bilirubin 0.2 AST 13 ALT 10 Alkaline Phosphatase 95 Total Protein 7.8 Albumin 4.0 Globulin 3.8 Lipase 45 Urine Color Yellow Urine Appearance Cloudy Urine pH 5 Ur Specific [place] 1.020 Urine Protein Neg Urine Glucose (UA) Norm Urine Ketones Negative Urine Blood 3+ H Urine Nitrate Negative Urine Bilirubin Neg Urine Urobilinogen Norm Ur Leukocyte Esterase 2+ H Urine RBC 10-15 H Urine WBC >100 H Ur Squamous Epith Cells 0-4 H Urine Bacteria 3+ H 06/24/19 06/25/19 06/25/19 22:30 01:39 05:25 WBC 19.6 H RBC 4.19 Hgb 11.6 Hct 36.3 L MCV 86.6 MCH 27.7 L MCHC 32.0 RDW 15.3 H Plt Count 227 MPV 11.0 H Neut % (Auto) 91.9 Lymph % (Auto) 3.5 Frontier % (Auto) 3.0 Eos % (Auto) 0.1 Baso % (Auto) 0.3 Neut # (Auto) 18.0 H Lymph # (Auto) 0.7 L Frontier # (Auto) 0.6 Eos # (Auto) 0.0 Baso # (Auto) 0.1 Nucleated RBC % (auto) 0 Nucleated RBCs # 0.0 Sodium Potassium Chloride Carbon Dioxide Anion Gap BUN Creatinine Glucose POC Glucose 185 Calculated Osmolality Lactic Acid 1.7 Calcium Total Bilirubin AST ALT Alkaline Phosphatase Total Protein Albumin Globulin Lipase Urine Color Urine Appearance Urine pH Ur Specific [place] Urine Protein Urine Glucose (UA) Urine Ketones Urine Blood Urine Nitrate Urine Bilirubin Urine Urobilinogen Ur Leukocyte Esterase Urine RBC Urine WBC Ur Squamous Epith Cells Urine Bacteria 06/25/19 06/25/19 05:25 06:36 WBC RBC Hgb Hct MCV MCH MCHC RDW Plt Count MPV Neut % (Auto) Lymph % (Auto) Frontier % (Auto) Eos % (Auto) Baso % (Auto) Neut # (Auto) Lymph # (Auto) Frontier # (Auto) Eos # (Auto) Baso # (Auto) Nucleated RBC % (auto) Nucleated RBCs # Sodium 137 Potassium 3.6 Chloride 103 Carbon Dioxide 19 L Anion Gap 18.6 BUN 25 H Creatinine 2.3 H Glucose 232 H POC Glucose 222 Calculated Osmolality 288 Lactic Acid Calcium 9.2 Total Bilirubin AST ALT Alkaline Phosphatase Total Protein Albumin Globulin Lipase Urine Color Urine Appearance Urine pH Ur Specific [place] Urine Protein Urine Glucose (UA) Urine Ketones Urine Blood Urine Nitrate Urine Bilirubin Urine Urobilinogen Ur Leukocyte Esterase Urine RBC Urine WBC Ur Squamous Epith Cells Urine Bacteria Micro: Microbiology 06/24/19 22:35 Blood Culture - Preliminary Blood SPECIMEN COLLECTED 06/24/19 22:30 Blood Culture - Preliminary Blood SPECIMEN COLLECTED Cardiac Studies: No Data to Display
[2019-06-25] MEDS: iohexol 300 mg/mL 50 mL Btl (OR ONLY) XX (09:00)
--- NOTE | 2019-06-25 09:40 | SUR.PHASEI ---
0933 PT AWAKE ALERT TAKING ICE CHIPS PT COUGHING OFF AND ON STRONGLY, C/O OF HEADACHE FROM COUGHING ICE CHIPS GIVEN TO HELP PT RESTS QUIETLY RESPONDS VERBALLY AND APPROPRIATLY, VSS REPORT CALLED TO FLOOR PT AT HOME, DR ALRA TO CALL. PT VARNER PATENT OF LT RED URINE NO CLOTS
--- NOTE | 2019-06-25 10:04 | SUR.PHASEI ---
0955 PT TO FLOOR ASSISTED TO BED WITH ASSIST OF 3 VSS BP 117/62, HR 80, RESP 18,SATS ON 3LNC 93-94% PT ALERT TALKATIVE WITH AT BEDSIDE.
[2019-06-25 11:04] LABS: Glucose Point of Care 194 mg/dL (70-110)
--- NOTE | 2019-06-25 12:17 | P.PN_ITS ---
Subjective Subjective: Interval history: Chart reviewed including labs and imaging, had emergent L ureteral stent placement by Dr. Castillo earlier this AM, has Meyers catheter in place, noted purulent urine on drainage and findings on cystoscopy consistent with chronic cystitis. US abdomen consistent with acute cholecystitis with cholelithiasis and CBD dilatation. Will switch to Zosyn for appropriate coverage of both UTI and cholecystitis. Will discuss findings with surgery. Medications: Reviewed: Yes Medication Review Details: Active Medications Generic Name Dose Route Start Last Admin Trade Name Freq PRN Reason Stop Dose Admin Acetaminophen 650 mg 06/24/19 23:13 Tylenol PO Q6H PRN Mild/Mod Pain Or Temp >/= 101 Atorvastatin Calci um 10 mg 06/25/19 21:00 Lipitor PO BEDTIME KURT Dextrose 50 ml 06/25/19 01:09 D50w IVP PRN PRN hypoglycemia prot ocol Protocol Glucagon 1 mg 06/25/19 01:09 Glucagen IM ONCE PRN Adult Acute Hypog lycemia Prot. Protocol Ceftriaxone Sodium 1,000 mg/ 50 mls @ 100 mls/ hr 06/25/19 22:30 Sodium Chloride IV Q24H KURT Protocol Insulin Aspart 0 unit 06/25/19 08:00 06/25/19 07:23 Novolog SUBCUT 2 unit WM&BEDTIME KURT Administration Protocol Nifedipine 60 mg 06/25/19 09:00 06/25/19 10:16 Procardia Xl PO Not Given DAILY KURT Ondansetron HCl 4 mg 06/24/19 23:13 Zofran IVP Q6H PRN NAUSEA AND VOMITI NG Tramadol HCl 50 mg 06/25/19 01:09 Ultram PO Q8H PRN MODERATE PAIN No Known Allergies Allergy (Verified 06/24/19 18:07) Vitals/I&O/Wt Last Vital Signs Temp 98.4 F 06/25/19 12:00 Pulse 77 06/25/19 12:00 Resp 17 06/25/19 12:00 BP 102/58 06/25/19 12:00 Pulse Ox 94 06/25/19 12:00 06/24/19 06/25/19 06/25/19 22:59 06:59 14:59 Intake Total 0 / 0 125 / 125 Output Total 300 / 300 0 / 0 Balance -300 / -300 125 / 125 Weight last 48 hrs Weight 54.431 kg Physical Exam Const: COMMON NORMALS: no apparent distress and oriented x3 GENERAL APPEARANCE: cooperative, comfortable and frail appearing; not ill appearing and not diaphoretic NUTRITIONAL APPEARANCE: thin ORIENTATION/CONSCIOUSNESS: Yes awake OTHER: -looks younger than stated age HENMT: COMMON NORMALS: normocephalic, head/scalp atraumatic, hearing grossly normal bilaterally and moist oral mucous membranes HEAD & SCALP: normocephalic and atraumatic Eye: COMMON NORMALS: PERRL, EOMs intact bilaterally and conjunctivae normal CONJUNCTIVA: Yes conjunctivae normal PUPIL: Yes PERRL Neck/C-Spine: COMMON NORMALS: full ROM GENERAL: Yes normal visual inspection and Yes trachea midline Resp: COMMON NORMALS: normal respiratory effort, no retractions, no use of accessory muscles and clear to auscultation bilaterally EFFORT & INSPECTION: Yes able to speak in complete sentences, Yes symmetric chest movement and No tachypneic AUSCULTATION: clear to auscultation bilaterally Cardio: COMMON NORMALS: regular rate, regular rhythm, S1 normal heart sound, S2 normal heart sound and no murmurs RATE: regular rate RHYTHM: regular rhythm HEART SOUNDS: S1 normal and S2 normal GI: COMMON NORMALS: normal to inspection, nondistended, normoactive bowel sounds, soft to palpation and non-tender PALPATION: Yes soft, No guarding and No rigid Extremity: COMMON NORMALS: normal to inspection, full ROM and no clubbing, cyanosis or edema; negative for no pedal edema Neuro: COMMON NORMALS: oriented x3, moves all extremities, no focal motor deficits, no sensory deficits noted and gait normal Psych: COMMON NORMALS: mental status grossly normal, thought process normal, cooperative, affect normal and speech normal SPEECH: Yes normal speech THOUGHT PROCESS: normal thought process Skin: COMMON NORMALS: no rashes or lesions noted, no jaundice, no petechiae and no mottling GENERAL SKIN EXAM: no rashes or lesions noted Urinary Catheter Management^: F: Cath Placed During This Visit: yes Urethral Indwelling: Yes Reason for Continuing Indwelling Catheter: Acute Urinary Retention or Obstru ction Urinary Catheter Date of Insertion: 06/25/19 Urinary Catheter Time of Insertion: 08:55 Data : 06/25/19 05:25 06/25/19 05:25 Micro: Microbiology 06/24/19 22:35 Blood Culture - Preliminary Blood SPECIMEN COLLECTED 06/24/19 22:30 Blood Culture - Preliminary Blood SPECIMEN COLLECTED A&P Assessment and plan (1) Ureteral obstruction, left: -Noted to have mild to moderate left hydronephrosis and proximal left hydroureter with left perinephric stranding; increased density in the left ureter distal to the left UPJ with concern for stricture and/or neoplasm -Status post emergent cystoscopy and left ureteral stent placement by Dr. Castillo earlier this morning. Noted to have findings consistent with chronic cystitis in her bladder and purulent urine drained -Has Meyers catheter in place, continue to monitor output -UA indicative for infection -Follow-up urine and blood cultures -Received a dose of ceftriaxone by due to findings consistent with acute cholecystitis on abdominal ultrasound will switch to Zosyn for dual coverage -Appreciate Dr. Castillo's input -Pain control, antiemetics as needed -Received IV fluid hydration -Vital signs stable, low-grade temperature of 100 F, continue to monitor vital signs Status: Acute Code(s): N13.5 - Crossing vessel and stricture of ureter without hydronephrosis (2) Acute pyelonephritis: -UA indicative of infection, CT findings as noted above -Follow-up urine and blood cultures -Received a dose of ceftriaxone by due to findings consistent with acute cholecystitis on abdominal ultrasound will switch to Zosyn for dual coverage -Has had complicated history of recurrent UTIs with cystoscopy revealing findings of chronic cystitis -Noted leukocytosis with a neutrophilic predominance, continue to trend WBC -Lactic acid 1.7 Status: Acute Code(s): N10 - Acute pyelonephritis (3) Acute cholecystitis: -Noted findings of cholelithiasis on CT scan, abdominal ultrasound shows acute cholecystitis with CBD dilation of 1.14 cm, no stones -LFTs wnl, lipase-45, no mention of RUQ pain on initial admission evaluation -discuss findings with surgery Status: Acute Code(s): K81.0 - Acute cholecystitis (4) Acute kidney injury: -Noted acute renal impairment likely secondary to acute pyelonephritis -Continue to monitor renal function, avoid nephrotoxins, renally dose meds -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; baseline Cr is around 1.5-1.7 though has been as high as 2.0 in the past Status: Acute Code(s): N17.9 - Acute kidney failure, unspecified (5) Hypertension: -Vital signs stable, continue to monitor Status: Chronic Qualifiers: Hypertension type: essential hypertension Qualified Code(s): I10 - Essential (primary) hypertension Code(s): I10 - Essential (primary) hypertension Additional A&P Information -hx of uterine cancer s/p hysterectomy -Advanced age -HTN; hold BP meds for now including ACEi, diuretics due to renal impairment -GI ppx with -DVT ppx with SCDs, hold AC until confirmed no need for further surgical intervention -Dispo: pending clinical improvement -Code status: FULL code Attestations Medical Necessity Statement*: Patient requires hospitalization for continued management of acute pyelonephritis, acute cholecytitis, on IV antibiotics; s/p L ureteral stent placement. Time Spent in Patient Care: 16 - 35 minutes (>than 50% of time spent in counselling and/or direct pt care on unit) . Coding Level of Care Code Acute Transfer And Pumphouse Operator Chief for [facility] Fwd Exam Comprehensive Diagnoses Ureteral obstruction, left N13.5 Acute pyelonephritis N10 Acute cholecystitis K81.0 Acute kidney injury N17.9 Hypertension I10 Hypertension type: essential hypertension
[2019-06-25] MEDS: sodium chloride 0.9% 1,000 ML 125 ML IV (13:04)
[2019-06-25] MEDS: piperacillin-tazobactam 3.375 GM in sodium chloride 0.9% (plus) 50 ML IV (13:55)
[2019-06-25 16:38] LABS: Glucose Point of Care 188 mg/dL (70-110)
[2019-06-25] MEDS: acetaminophen 325 mg Tablet 650 MG PO (19:20)
[2019-06-25] MEDS: atorvastatin 40 mg Tablet 10 MG PO (19:21)
[2019-06-25 20:59] LABS: Glucose Point of Care 220 mg/dL (70-110)
[2019-06-26] VITALS: PULSE 78; RESP 20; TEMP 37.1; O2SAT 93
--- NOTE | 2019-06-26 | XR_ITS ---
WS: [id number] CHEST XRAY TECHNIQUE: Portable chest. CLINICAL INFORMATION: PICC LINE FINDINGS/IMPRESSION Left PICC line has been retracted slightly with tip in the mid distal brachioceph alic vein. No other changes.
[2019-06-26] MEDS: sodium chloride 0.9% 1,000 ML 125 ML IV ×3 (01:21→17:15)
[2019-06-26] MEDS: piperacillin-tazobactam 3.375 GM in sodium chloride 0.9% (plus) 50 ML IV ×2 (01:22→15:05)
[2019-06-26 04:00] VITALS: BP 126/83; PULSE 58; RESP 19; TEMP 36.5; O2SAT 96
[2019-06-26 06:33] LABS: Basophils # 0.1 10^3/uL (0.0-0.1); Basophils % 0.3 %; Hematocrit 29.8 % (37.0-47.0); Hemoglobin 9.7 g/dL (11.5-15.3); Lymphocytes # 1.5 10^3/uL (0.8-4.8); Lymphocytes % 4.6 %; Mean Corpuscular HGB Conc 32.6 g/dL (30.0-36.0); Mean Corpuscular Volume 86.1 fL (81-99); Mean Platelet Volume 11.4 fL (7.4-10.4); Monocytes # 1.4 10^3/uL (0.2-0.9); Monocytes % 4.5 %; Neutrophils # 25.4 10^3/uL (1.8-7.7); Neutrophils % 81.1 %; Nucleated Red Blood Cells % 0 %; Platelet Count 197 10^3/cmm (130-400); Red Blood Count 3.46 10^6/uL (4.1-5.3); Red Cell Distribution Width 15.8 % (12.1-15.1)
[2019-06-26 06:41] LABS: Glucose Point of Care 185 mg/dL (70-110)
[2019-06-26 06:49] LABS: Alanine Aminotransferase 19 U/L (0-33); Albumin Level 2.9 g/dL (3.5-5.2); Alkaline Phosphatase 80 IU/L (35-105); Anion Gap 14.1 (5-19); Aspartate Amino Transferase 15 U/L (0-32); Blood Urea Nitrogen 35 mg/dL (8-23); Carbon Dioxide 21 mmol/L (22-29); Chloride 107 mmol/L (98-107); Globulin 3.7 g/dL (1.3-4.6); Glucose 208 mg/dL (65-115); Osmolality Calculated 289 mOsm/kg (285-295); Potassium 4.1 mmol/L (3.5-5.1); Sodium 138 mmol/L (136-145); Total Bilirubin 0.4 mg/dL (0.15-1.2); Total Protein 6.6 g/dL (6.6-8.7)
[2019-06-26 07:12] LABS: Slide Review Slide Review Perform; White Blood Count 31.3 10^3/uL (4.0-10.0)
[2019-06-26 07:14] LABS: Absolute Segmented Neutrophil 18.4 10/cmm (1.6-7.1); Lymphocytes 3 %; Monocytes Absolute 0.9 10^3/cmm (0.1-0.6); Segmented Neutrophils 59 %; Total Cells Counted 100 (0-100)
[2019-06-26 07:15] LABS: Platelet Estimate Normal (Normal)
[2019-06-26 07:34] VITALS: BP 119/71; PULSE 69; RESP 17; TEMP 36.8; O2SAT 90
--- NOTE | 2019-06-26 08:19 | MR_ITS ---
WS: [id number] CHEST XRAY TECHNIQUE: Portable chest. CLINICAL INFORMATION: PICC LINE FINDINGS/IMPRESSION Left PICC line has been retracted slightly with tip in the mid distal brachioceph alic vein. No other changes.
--- NOTE | 2019-06-26 08:46 | XR_ITS ---
WS: [id number] CHEST XRAY TECHNIQUE: Portable chest. CLINICAL INFORMATION: picc placement COMPARISON: April 15, 2013 FINDINGS: Left PICC line in the distal left brachycephalic vein. Recommend retraction 1 to 2 cm to pr event sidewall placement. No pneumothorax. Heart: Normal cardiac silhouette. Aortic calcification. Lungs: Chronic emphysematous changes. Chronic calcified granulomas. No acute infiltrates. Bones: Right TSA. XR/XR chest 1V portable [id number] IMPRESSION: 1. Left PICC line with tip in the distal brachiocephalic vein. Recommend retra ction 1 to 2 cm. 2. No pneumothorax. 3. No acute pulmonary infiltrates.
--- NOTE | 2019-06-26 11:51 | PM.CONSULT ---
Providers/Reason For Consult Consulting Physican/Specialty*: Urban Heredia MD Reason for Consult*: Cholecystitis Attending Physician: Xiao Starr MD Primary Care Provider: Abdi Mack History of Present Illness History of Present Illness Chief Complaint: I feel better History of present illness: Melissa Fermin is a 84 year old female scented to the emergency department with worsening left-sided abdominal pain undergone urological procedure for left pyelonephrosis yesterday, yet the patient had an abdominal ultrasound that showed concern for cholecystitis with intra-and extrahepatic biliary dilation on the CT scan. Because of the worsening WBC count today general surgery was consulted for concern for cholecystitis pathology On further inquiry the patient denies any history of fatty dyspepsia or any related symptoms to her gallbladder. Also denies history of jaundice CT scan of the abdomen and pelvis ; 1. There is increased density in the left ureter 3.4 cm distal to the left UPJ raising concern for stricture and/or neoplasm. There are associated obstructive changes as described above. 2. There are stones and sludge in the gallbladder with associated intrahepatic and extrahepatic ductal dilatation. 3. Colonic constipation is present. Ultrasound of the Abdomen: Liver: Liver measures 15.55 cm in length. Normal hepatopedal circulation. Gallbladder: Gallbladder wall thickness measures 0.31 cm. Contracted gallbladder with multiple stones. Common bile duct dilated 1.14 cm no stones in the duct were seen. Left kidney: Left kidney measures 9.80 cm x 5.33 cm x 4.98 cm. Benign cystno stones or hydronephrosis. Right kidney: Right kidney measures 9.87 cm x 4.03 cm x 3.81 cm. Benign cysts presentno stones or hydronephrosis. Spleen: Spleen measures 9.28 cm Impression Acute cholecystitis with cholelithiasis Markedly dilated common bile duct. No definite stones in the duct were seen. Benign cyst both kidneys. Review of Systems General: Reports: 10 or more systems reviewed and unremarkable except in HPI and below Meds/Allergies Home Medications and Allergies Home Medications Medication Instructions Recorded Confirmed Type ascorbic acid (vitamin C) [Vitamin 500 mg PO DAILY 06/25/19 06/25/19 History C] insulin glargine [Lantus Solostar SUBCUT 06/25/19 History U-100 Insulin] lisinopril 10 mg PO BEDTIME 06/25/19 06/25/19 History losartan-hydrochlorothiazide 1 tab PO DAILY 06/25/19 06/25/19 History [Hyzaar] nifedipine 60 mg PO DAILY 06/25/19 06/25/19 History nitrofurantoin macrocrystal 100 mg PO Q12H 06/25/19 06/25/19 History Allergies Allergy/AdvReac Type Severity Reaction Status Date / Time No Known Allergies Allergy Verified 06/26/19 14:29 Current Medications Current Medications Generic Name Dose Route Start Last Admin Trade Name Freq PRN Reason Stop Dose Admin Acetaminophen 650 mg 06/24/19 23:13 06/25/19 19:20 Tylenol PO 650 mg Q6H PRN Administration Mild/Mod Pain Or Temp >/= 101 Atorvastatin Calcium 10 mg 06/25/19 21:00 06/25/19 19:21 Lipitor PO 10 mg BEDTIME KURT Administration Piperacillin Sod/Tazobactam 50 mls @ 12.5 mls/hr 06/25/19 14:00 06/26/19 01:22 Sod 3.375 gm/ Sodium Chloride IV 12.5 mls/hr Q12H KURT Administration Protocol Sodium Chloride 1,000 mls @ 125 mls/hr 06/25/19 13:00 06/26/19 08:55 Sodium Chloride 0.9% IV 125 mls/hr .Q8H KURT Administration Insulin Aspart 0 unit 06/25/19 08:00 06/26/19 08:46 Novolog SUBCUT 2 unit WM&BEDTIME KURT Administration Protocol Nifedipine 60 mg 06/25/19 09:00 06/25/19 10:16 Procardia Xl PO Not Given DAILY KURT PFSH Acute PFSH: Medical History Acute kidney injury Diabetes GERD (gastroesophageal reflux disease) Hypertension Osteoporosis Ureteral obstruction, left Uterine cancer Surgical History H/O arthroplasty H/O arthroscopy Social History Smoking and tobacco status: former smoker Vitals/I&O/Wt Last Vital Signs Temp 98.3 F 06/26/19 07:34 Pulse 69 06/26/19 07:34 Resp 17 06/26/19 07:34 BP 119/71 06/26/19 07:34 Pulse Ox 90 06/26/19 07:34 06/25/19 06/26/19 06/26/19 22:59 06:59 14:59 Intake Total 1515 / 1640 120 / 1760 1170.833 / 1170.833 Output Total 450 / 450 200 / 650 Balance 1065 / 1190 -80 / 1110 1170.833 / 1170.833 Weight last 48 hrs Weight 120 lb Physical Exam Const: COMMON NORMALS: no apparent distress and oriented x3 GENERAL APPEARANCE: cooperative ORIENTATION/CONSCIOUSNESS: Yes awake, Yes oriented to person, Yes oriented to place and Yes oriented to time HENMT: COMMON NORMALS: normocephalic HEAD & SCALP: normocephalic Eye: COMMON NORMALS: PERRL and no scleral icterus PUPIL: Yes PERRL Lymph: LYMPHATIC: no lymphadenopathy noted Chest: COMMONS NORMALS: inspection of chest normal Resp: COMMON NORMALS: normal respiratory effort and clear to auscultation bilaterally AUSCULTATION: clear to auscultation bilaterally Cardio: COMMON NORMALS: S1 normal heart sound and S2 normal heart sound; negative for no murmurs HEART SOUNDS: S1 normal and S2 normal GI: COMMON NORMALS: soft to palpation; negative for no hepatosplenomegaly INSPECTION: Yes normal to inspection PALPATION: Yes soft, No firm, No tender, No guarding, No rigid and No no hepatosplenomegaly Neuro: COMMON NORMALS: oriented x3 SENSORIUM/ORIENTATION: Yes oriented to person, Yes oriented to place and Yes oriented to time Psych: COMMON NORMALS: mental status grossly normal Urinary Catheter Management^: F: Cath Placed During This Visit: yes Urethral Indwelling: Yes Reason for Continuing Indwelling Catheter: Acute Urinary Retention or Obstruction Urinary Catheter Date of Insertion: 06/25/19 Urinary Catheter Time of Insertion: 08:55 Data Micro: Micro: Microbiology 06/24/19 21:19 Urine Culture - Pr eliminary Urine,Clean Catch Gram Negative R ods 06/24/19 22:30 Blood Culture - Pr eliminary Blood Gram Negative R ods 06/24/19 22:35 Blood Culture - Pr eliminary Blood Gram Negative R ods A&P Assessment and plan (1) Dilation of biliary tract: From surgical standpoint of view as there is a concern on the CT scan of intra-and extrahepatic biliary ductal dilation I would recommend highly to get an MRCP to rule out floating stone in the CBD or periampullary pathology spite of the liver function test are normal. Unless the MRCP comes back with specific findings on the biliary system no intervention at this point from general surgery and I will have the patient follow-up with me at the office for follow-up. Based on the MRCP findings: Mild intrahepatic biliary dilatation. Normal portal vein and splenic vein. No suspicious hepatic lesions. Mild gallbladder dilatation with dense large gallstone in the gallbladder neck unchanged since the recent CT and ultrasound. Dense gallstone measures 1.6 CM. Mild dilatation common bile duct. No evidence of choledocholithiasis. Common bile duct measures 3.7 mm at the pancreatic head. No evidence of pancreatic head lesion. Right renal cyst measuring 3.1 CM. Bilateral perinephric edema. Normal caliber abdominal aorta. We will plan to have the patient follow-up as an outpatient to discuss potential laparoscopic cholecystectomy due to the location of the gallbladder stone. Status: Acute Code(s): K83.8 - Other specified diseases of biliary tract (2) Acute cholecystitis: After thorough history physical examination and reviewing the chart, I do believe clinically the patient does not have any evidence of acute cholecystitis. Status: Acute Code(s): K81.0 - Acute cholecystitis Consult Attestations Medical Necessity Statement: Per hospitalist service Time Spent in Patient Care: 16 - 35 minutes (>than 50% of time spent in counselling and/or direct pt care on unit). Coding Level of Care Code Acute Profiling Machine Set Up Operator for [facility] Fwd Exam Comprehensive Diagnoses Dilation of biliary tract K83.8 Acute cholecystitis K81.0
--- NOTE | 2019-06-26 14:32 | P.PN_ITS ---
Subjective Subjective: Interval history: AM labs noted, increased leukocytosis, had 400 mL urine output overnight, peripheral IV established, plan for PICC line placement today. Febrile overnight with Tmax-101, has been afebrile since. at bedside earlier this AM, patient sitting up for breakfast, no apparent distress. Case discussed with Dr. Young, recommended MRCP which we reviewed together, report pending. No need for acute surgical intervention, patient remains pain free, tolerating oral intake without difficulty. She is postop day #1 status post left ureteral stent placement. Medications: Reviewed: Yes Medication Review Details: Active Medications Generic Name Dose Route Start Last Admin Trade Name Freq PRN Reason Stop Dose Admin Acetaminophen 650 mg 06/24/19 23:13 06/25/19 19:20 Tylenol PO 650 mg Q6H PRN Administration Mild/Mod Pain Or Temp >/= 101 Atorvastatin Calci um 10 mg 06/25/19 21:00 06/25/19 19:21 Lipitor PO 10 mg BEDTIME KURT Administration Dextrose 50 ml 06/25/19 01:09 D50w IVP PRN PRN hypoglycemia prot ocol Protocol Glucagon 1 mg 06/25/19 01:09 Glucagen IM ONCE PRN Adult Acute Hypog lycemia Prot. Protocol Piperacillin Sod/T azobactam 50 mls @ 12.5 mls /hr 06/25/19 14:00 06/26/19 01:22 Sod 3.375 gm/ So dium Chloride IV 12.5 mls/hr Q12H KURT Administration Protocol Sodium Chloride 1,000 mls @ 125 m ls/hr 06/25/19 13:00 06/26/19 08:55 Sodium Chloride 0.9% IV 125 mls/hr .Q8H KURT Administration Insulin Aspart 0 unit 06/25/19 08:00 06/26/19 14:26 Novolog SUBCUT Not Given WM&BEDTIME KURT Protocol Nifedipine 60 mg 06/25/19 09:00 06/25/19 10:16 Procardia Xl PO Not Given DAILY KURT Ondansetron HCl 4 mg 06/24/19 23:13 Zofran IVP Q6H PRN NAUSEA AND VOMITI NG Tramadol HCl 50 mg 06/25/19 01:09 Ultram PO Q8H PRN MODERATE PAIN No Known Allergies Allergy (Verified 06/26/19 14:29) Vitals/I&O/Wt Last Vital Signs Temp 98.3 F 06/26/19 07:34 Pulse 69 06/26/19 07:34 Resp 17 06/26/19 07:34 BP 119/71 06/26/19 07:34 Pulse Ox 90 06/26/19 07:34 06/25/19 06/26/19 06/26/19 22:59 06:59 14:59 Intake Total 1515 / 1640 120 / 1760 1290.833 / 1290.833 Output Total 450 / 450 200 / 650 Balance 1065 / 1190 -80 / 1110 1290.833 / 1290.833 Weight last 48 hrs Weight 54.431 kg Physical Exam Const: COMMON NORMALS: no apparent distress and oriented x3 GENERAL APPEARANCE: cooperative, comfortable and frail appearing; not ill appearing and not diaphoretic NUTRITIONAL APPEARANCE: thin ORIENTATION/CONSCIOUSNESS: Yes awake OTHER: -looks younger than stated age HENMT: COMMON NORMALS: normocephalic, head/scalp atraumatic, hearing grossly normal bilaterally and moist oral mucous membranes HEAD & SCALP: normocephalic and atraumatic Eye: COMMON NORMALS: PERRL, EOMs intact bilaterally and conjunctivae normal CONJUNCTIVA: Yes conjunctivae normal PUPIL: Yes PERRL Neck/C-Spine: COMMON NORMALS: full ROM GENERAL: Yes normal visual inspection and Yes trachea midline Resp: COMMON NORMALS: normal respiratory effort, no retractions, no use of accessory muscles and clear to auscultation bilaterally EFFORT & INSPECTION: Yes able to speak in complete sentences, Yes symmetric chest movement and No tachypneic AUSCULTATION: clear to auscultation bilaterally Cardio: COMMON NORMALS: regular rate, regular rhythm, S1 normal heart sound, S2 normal heart sound and no murmurs RATE: regular rate RHYTHM: regular rhythm HEART SOUNDS: S1 normal and S2 normal GI: COMMON NORMALS: normal to inspection, nondistended, normoactive bowel sounds, soft to palpation and non-tender PALPATION: Yes soft, No guarding and No rigid Extremity: COMMON NORMALS: normal to inspection, full ROM and no clubbing, cyanosis or edema; negative for no pedal edema Neuro: COMMON NORMALS: oriented x3, moves all extremities, no focal motor deficits, no sensory deficits noted and gait normal Psych: COMMON NORMALS: mental status grossly normal, thought process normal, cooperative, affect normal and speech normal SPEECH: Yes normal speech THOUGHT PROCESS: normal thought process Skin: COMMON NORMALS: no rashes or lesions noted, no jaundice, no petechiae and no mottling GENERAL SKIN EXAM: no rashes or lesions noted Urinary Catheter Management^: F: Cath Placed During This Visit: yes Urethral Indwelling: Yes Reason for Continuing Indwelling Catheter: Acute Urinary Retention or Obstruction Urinary Catheter Date of Insertion: 06/25/19 Urinary Catheter Time of Insertion: 08:55 Data : 06/26/19 06:08 06/26/19 06:08 Micro: Microbiology 06/24/19 21:19 Urine Culture - Preliminary Urine,Clean Catch Gram Negative Rods 06/24/19 22:30 Blood Culture - Preliminary Blood Gram Negative Rods 06/24/19 22:35 Blood Culture - Preliminary Blood Gram Negative Rods A&P Assessment and plan (1) Ureteral obstruction, left: -Noted to have mild to moderate left hydronephrosis and proximal left hydroureter with left perinephric stranding; increased density in the left ureter distal to the left UPJ with concern for stricture and/or neoplasm -Status post emergent cystoscopy and left ureteral stent placement by Dr. Castillo, POD # 1. Noted to have findings consistent with chronic cystitis in her bladder and purulent urine drained -Has Meyers catheter in place, continue to monitor output -UA indicative for infection -urine cx: GNRs, pending ID & sensitivity -blood cultures: GNRs, pending ID & sensitivity; repeat set ordered -Received a dose of ceftriaxone by due to findings consistent with acute cholecystitis on abdominal ultrasound, is on Zosyn for dual coverage -Appreciate Dr. Castillo's input -Pain control, antiemetics as needed -on IV fluid hydration -Vital signs stable, low-grade temperature of 100 F, continue to monitor vital signs Status: Acute Code(s): N13.5 - Crossing vessel and stricture of ureter without hydronephrosis (2) Acute pyelonephritis: -UA indicative of infection, CT findings as noted above -urine cx: GNRs, pending ID & sensitivity -blood cultures: GNRs, pending ID & sensitivity; repeat set ordered -Received a dose of ceftriaxone by due to findings consistent with acute cholecystitis on abdominal ultrasound, is on Zosyn for dual coverage -Has had complicated history of recurrent UTIs with cystoscopy revealing findings of chronic cystitis -Noted leukocytosis with a neutrophilic predominance, increased today, continue to trend WBC -Lactic acid 1.7 Status: Acute Code(s): N10 - Acute pyelonephritis (3) Acute cholecystitis: -Noted findings of cholelithiasis on CT scan, abdominal ultrasound shows acute cholecystitis with CBD dilation of 1.14 cm, no stones -LFTs wnl, lipase-45, no mention of RUQ pain on initial admission evaluation -discuss findings with surgery Status: Acute Code(s): K81.0 - Acute cholecystitis (4) Gram-negative bacteremia: -Likely secondary to source as noted above -Blood culture positive for gram-negative rods, pending ID and sensitivity, repeat set ordered -Continue Zosyn Status: Acute Code(s): R78.81 - Bacteremia (5) Acute kidney injury: -Noted acute renal impairment likely secondary to acute pyelonephritis -Continue to monitor renal function, avoid nephrotoxins, renally dose meds -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; baseline Cr is around 1.5-1.7 though has been as high as 2.0 in the past -on IVF hydration Status: Acute Code(s): N17.9 - Acute kidney failure, unspecified (6) Hypertension: -Vital signs stable, continue to monitor Status: Chronic Qualifiers: Hypertension type: essential hypertension Qualified Code(s): I10 - Essential (primary) hypertension Code(s): I10 - Essential (primary) hypertension Additional A&P Information -hx of uterine cancer s/p hysterectomy -Advanced age -HTN; hold BP meds for now including ACEi, diuretics due to renal impairment -GI ppx with -DVT ppx with SCDs, hold AC due to bleeding risk -Dispo: pending clinical improvement -Code status: FULL code Attestations Medical Necessity Statement*: Patient requires hospitalization for continued management of UTI, gram-negative bacteremia currently on broad-spectrum IV antibiotics pending culture results; as well as continued management of left ureteral obstruction status post stent placement. Time Spent in Patient Care: Greater than 35 minutes (>than 50% of time spent in counselling and/or direct pt care on unit) . Coding Level of Care Code Acute Dot Compliance Specialist for [facility] Fwd Diagnoses Ureteral obstruction, left N13.5 Acute pyelonephritis N10 Acute cholecystitis K81.0 Gram-negative bacteremia R78.81 Acute kidney injury N17.9 Hypertension I10 Hypertension type: essential hypertension
[2019-06-26 15:31] VITALS: BP 176/77; PULSE 74; RESP 18; TEMP 36.8; O2SAT 92
[2019-06-26] MEDS: ondansetron 2 mg/ML SDV 2 mL 4 MG IVP (16:08)
[2019-06-26 17:03] LABS: Glucose Point of Care 245 mg/dL (70-110)
[2019-06-26] MEDS: alum-mag-hydroxide-sime 30 mL UDC 15 ML PO ×2 (17:51→21:24)
[2019-06-26] MEDS: famotidine 20 mg Tablet PO (17:51)
--- NOTE | 2019-06-26 18:00 | PC.NURSE ---
PATIENT VOMITING THIS EVENING. DR. DEGROOT NOTIFIED. ZOFRAN, MAALOX, AND PEPCID ADMINISTERED.
[2019-06-26 20:00] VITALS: BP 167/88; PULSE 86; RESP 17; TEMP 36.7; O2SAT 93
--- NOTE | 2019-06-26 20:45 | ECG_ITS ---
Measurements Intervals Perkins Rate: 90 P: 45 OH: 174 QRS: 3 QRSD: 97 T: 27 QT: 369 QTc: [address] & T-WAVE ABNORMALITY No previous ECG available for comparison Electronically Signed On 06-27-2019 20:18:49 CDT by Stacie Rojo M.D. [email or web address]
[2019-06-26 20:58] VITALS: BP 185/93; PULSE 93; RESP 18; TEMP 36.8; O2SAT 93
[2019-06-26 21:11] LABS: Glucose Point of Care 191 mg/dL (70-110)
[2019-06-26] MEDS: atorvastatin 40 mg Tablet 10 MG PO (21:25)
[2019-06-27] VITALS: BP 164/77; PULSE 84; RESP 17; TEMP 37.2; O2SAT 94
[2019-06-27] MEDS: sodium chloride 0.9% 1,000 ML 125 ML IV ×3 (02:27→18:47)
[2019-06-27] MEDS: piperacillin-tazobactam 3.375 GM in sodium chloride 0.9% (plus) 50 ML IV ×2 (02:27→14:16)
[2019-06-27] MEDS: ondansetron 2 mg/ML SDV 2 mL 4 MG IVP ×3 (02:35→18:23)
--- NOTE | 2019-06-27 03:13 | PM.EVENT ---
Event Note Event Note: With episodes of vomiting, patient is becoming bradycardic consistent with a vagal response. No loss of consciousness but has happened twice this evening with vomiting. Getting zofan. Nursing to monitor for recurent nausea. Ideally want to prevent the vomitting if we can. Continue telemetry.
[2019-06-27 04:00] VITALS: BP 161/51; PULSE 88; RESP 16; TEMP 37.1; O2SAT 94
[2019-06-27 04:42] LABS: Basophils % 0.2 %; Hematocrit 32.1 % (37.0-47.0); Hemoglobin 10.8 g/dL (11.5-15.3); Lymphocytes # 1.1 10^3/uL (0.8-4.8); Mean Corpuscular HGB Conc 33.6 g/dL (30.0-36.0); Mean Corpuscular Hemoglobin 28.1 pg (28.0-34.0); Mean Corpuscular Volume 83.6 fL (81-99); Monocytes # 0.9 10^3/uL (0.2-0.9); Monocytes % 3.3 %; Neutrophils # 23.6 10^3/uL (1.8-7.7); Neutrophils % 88.5 %; Nucleated Red Blood Cells % 0 %; Platelet Count 184 10^3/cmm (130-400); Red Blood Count 3.84 10^6/uL (4.1-5.3); Red Cell Distribution Width 15.7 % (12.1-15.1); White Blood Count 26.7 10^3/uL (4.0-10.0)
[2019-06-27 04:58] LABS: Anion Gap 17.4 (5-19); Blood Urea Nitrogen 28 mg/dL (8-23); Calcium 7.8 mg/dL (8.5-10.5); Carbon Dioxide 19 mmol/L (22-29); Chloride 106 mmol/L (98-107); Glucose 237 mg/dL (65-115); Osmolality Calculated 293 mOsm/kg (285-295); Potassium 3.4 mmol/L (3.5-5.1); Sodium 139 mmol/L (136-145)
[2019-06-27 06:34] LABS: Glucose Point of Care 206 mg/dL (70-110)
[2019-06-27 07:53] VITALS: BP 165/81; PULSE 83; RESP 18; TEMP 37.1; O2SAT 94
[2019-06-27] MEDS: NIFEdipine ER (24 hr) 30 mg Tablet 60 MG PO (08:13)
[2019-06-27] MEDS: famotidine 20 mg Tablet PO ×2 (08:13→18:47)
[2019-06-27 11:02] LABS: Glucose Point of Care 155 mg/dL (70-110)
[2019-06-27 12:00] VITALS: BP 155/74; PULSE 86; RESP 18; TEMP 37.4; O2SAT 93
--- NOTE | 2019-06-27 12:10 | PC.SOCIAL ---
Pg 2 IMM Explained to pt & family Pg 2 IMM. No questions voiced. Provided pt a copy & left on their bedside table. Signed, dated, timed, then placed a copy in chart.
[2019-06-27 15:59] VITALS: BP 135/76; PULSE 79; RESP 18; TEMP 37; O2SAT 95
[2019-06-27 17:58] LABS: Glucose Point of Care 171 mg/dL (70-110)
[2019-06-27 20:00] VITALS: BP 145/74; PULSE 89; RESP 18; TEMP 37; O2SAT 90
--- NOTE | 2019-06-27 20:09 | P.PN_ITS ---
Subjective Subjective: Interval history: Patient seen and examined earlier this afternoon, at bedside, notified of overnight events including nausea/vomiting and significant bradycardia. Has some nausea but decreased; denies abdominal pain, had 1300 mL urine output overnight. AM labs noted, decreasing leukocytosis, minimal hypokalemia, improving renal function. POD # 2 s/p L ureteral stent placement. Medications: Reviewed: Yes Medication Review Details: Active Medications Generic Name Dose Route Start Last Admin Trade Name Freq PRN Reason Stop Dose Admin Acetaminophen 650 mg 06/24/19 23:13 06/25/19 19:20 Tylenol PO 650 mg Q6H PRN Administration Mild/Mod Pain Or Temp >/= 101 Al Hydrox/Mg [place] x/Simethicone 15 ml 06/26/19 17:20 06/26/19 21:24 Maalox PO 15 ml Q4H PRN Administration INDIGESTION Atorvastatin Calci um 20 mg 06/27/19 21:00 Lipitor PO BEDTIME KURT Dextrose 50 ml 06/25/19 01:09 D50w IVP PRN PRN hypoglycemia prot ocol Protocol Famotidine 20 mg 06/26/19 18:00 06/27/19 18:47 Pepcid Tab PO 20 mg BID KURT Administration Glucagon 1 mg 06/25/19 01:09 Glucagen IM ONCE PRN Adult Acute Hypog lycemia Prot. Protocol Piperacillin Sod/T azobactam 50 mls @ 12.5 mls /hr 06/25/19 14:00 06/27/19 14:16 Sod 3.375 gm/ So dium Chloride IV 12.5 mls/hr Q12H KURT Administration Protocol Sodium Chloride 1,000 mls @ 125 m ls/hr 06/25/19 13:00 06/27/19 18:47 Sodium Chloride 0.9% IV 125 mls/hr .Q8H KURT Administration Insulin Aspart 0 unit 06/25/19 08:00 06/27/19 18:47 Novolog SUBCUT 4 unit WM&BEDTIME KURT Administration Protocol Metoclopramide HCl 5 mg 06/27/19 20:10 Reglan IVP Q6H PRN NAUSEA AND VOMITI NG Nifedipine 60 mg 06/25/19 09:00 06/27/19 08:13 Procardia Xl PO 60 mg DAILY KURT Administration Ondansetron HCl 4 mg 06/24/19 23:13 06/27/19 18:23 Zofran IVP 4 mg Q6H PRN Administration NAUSEA AND VOMITI NG Tramadol HCl 50 mg 06/25/19 01:09 Ultram PO Q8H PRN MODERATE PAIN No Known Allergies Allergy (Verified 06/26/19 14:29) Vitals/I&O/Wt Last Vital Signs Temp 98.6 F 06/27/19 15:59 Pulse 79 06/27/19 15:59 Resp 18 06/27/19 15:59 BP 135/76 06/27/19 15:59 Pulse Ox 95 06/27/19 15:59 06/27/19 06/27/19 06/27/19 06:59 14:59 22:59 Intake Total 1050 / 3390.833 842.917 / 012.222 4980 / 1842.917 Output Total 1300 / 2000 1470 / 1470 Balance -250 / 1390.833 842.917 / 842.917 -470 / 372.917 Physical Exam Const: COMMON NORMALS: no apparent distress and oriented x3 GENERAL APPEARANCE: cooperative, comfortable and frail appearing; not ill appearing and not diaphoretic NUTRITIONAL APPEARANCE: thin ORIENTATION/CONSCIOUSNESS: Yes awake OTHER: -looks younger than stated age HENMT: COMMON NORMALS: normocephalic, head/scalp atraumatic, hearing grossly normal bilaterally and moist oral mucous membranes HEAD & SCALP: normocephalic and atraumatic Eye: COMMON NORMALS: PERRL, EOMs intact bilaterally and conjunctivae normal CONJUNCTIVA: Yes conjunctivae normal PUPIL: Yes PERRL Neck/C-Spine: COMMON NORMALS: full ROM GENERAL: Yes normal visual inspection and Yes trachea midline Resp: COMMON NORMALS: normal respiratory effort, no retractions, no use of accessory muscles and clear to auscultation bilaterally EFFORT & INSPECTION: Yes able to speak in complete sentences, Yes symmetric chest movement and No tachypneic AUSCULTATION: clear to auscultation bilaterally Cardio: COMMON NORMALS: regular rate, regular rhythm, S1 normal heart sound, S2 normal heart sound and no murmurs RATE: regular rate RHYTHM: regular rhythm HEART SOUNDS: S1 normal and S2 normal GI: COMMON NORMALS: normal to inspection, nondistended, normoactive bowel sounds, soft to palpation and non-tender PALPATION: Yes soft, No guarding and No rigid : BLADDER/KIDNEY EXAM: Yes catheter in place Catheter type (Female): urethral Extremity: COMMON NORMALS: normal to inspection, full ROM and no clubbing, cyanosis or edema; negative for no pedal edema Neuro: COMMON NORMALS: oriented x3, moves all extremities, no focal motor deficits, no sensory deficits noted and gait normal Psych: COMMON NORMALS: mental status grossly normal, thought process normal, cooperative, affect normal and speech normal SPEECH: Yes normal speech THOUGHT PROCESS: normal thought process Skin: COMMON NORMALS: no rashes or lesions noted, no jaundice, no petechiae and no mottling GENERAL SKIN EXAM: no rashes or lesions noted Urinary Catheter Management^: F: Cath Placed During This Visit: yes Urethral Indwelling: Yes Reason for Continuing Indwelling Catheter: Acute Urinary Retention or Obstruction Urinary Catheter Date of Insertion: 06/25/19 Urinary Catheter Time of Insertion: 08:55 Data : 06/27/19 04:25 06/27/19 04:25 Micro: Microbiology 06/26/19 16:24 Blood Culture - Preliminary Blood NEGATIVE TO DATE 06/26/19 16:20 Blood Culture - Preliminary Blood NEGATIVE TO DATE 06/24/19 21:19 Urine Culture - Final Urine,Clean Catch Escherichia coli 06/24/19 22:30 Blood Culture - Preliminary Blood Escherichia coli 06/24/19 22:35 Blood Culture - Preliminary Blood Escherichia coli A&P Assessment and plan (1) Ureteral obstruction, left: -Noted to have mild to moderate left hydronephrosis and proximal left hydroureter with left perinephric stranding; increased density in the left ureter distal to the left UPJ with concern for stricture and/or neoplasm -Status post emergent cystoscopy and left ureteral stent placement by Dr. Castillo, POD # 2. Noted to have findings consistent with chronic cystitis in her bladder and purulent urine drained -Has Meyers catheter in place, continue to monitor output -UA indicative for infection -urine cx: E.coli, soto-sensitive -blood cultures: E.coli; repeat set prelim negative -Received a dose of ceftriaxone by due to findings consistent with acute cholecystitis on abdominal ultrasound, is on Zosyn for dual coverage -Appreciate Dr. Castillo's input -Pain control, antiemetics as needed -on IV fluid hydration -Vital signs stable, afebrile x 24 hrs, continue to monitor vital signs Status: Acute Code(s): N13.5 - Crossing vessel and stricture of ureter without hydronephrosis (2) Acute pyelonephritis: -UA indicative of infection, CT findings as noted above -urine cx: E.coli, soto-sensitive -blood cultures: E.coli; repeat set prelim negative -Received a dose of ceftriaxone by due to findings consistent with acute c holecystitis on abdominal ultrasound, is on Zosyn for dual coverage -Has had complicated history of recurrent UTIs with cystoscopy revealing findings of chronic cystitis -Noted leukocytosis with a neutrophilic predominance, decreasing, continue to trend WBC -Lactic acid 1.7 Status: Acute Code(s): N10 - Acute pyelonephritis (3) Acute cholecystitis: -Noted findings of cholelithiasis on CT scan, abdominal ultrasound shows acute cholecystitis with CBD dilation of 1.14 cm, no stones -LFTs wnl, lipase-45, no mention of RUQ pain on initial admission evaluation -discussed findings with surgery, consult by Dr. 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; baseline Cr is around 1.5-1.7 though has been as high as 2.0 in the past; renal function improving -on IVF hydration Status: Acute Code(s): N17.9 - Acute kidney failure, unspecified (6) Hypertension: -Vital signs stable, continue to monitor Status: Chronic Qualifiers: Hypertension type: essential hypertension Qualified Code(s): I10 - Essential (primary) hypertension Code(s): I10 - Essential (primary) hypertension Additional A&P Information -hx of uterine cancer s/p hysterectomy -Advanced age -HTN; hold BP meds for now including ACEi, diuretics due to renal impairment -noted bradycardia with episodes of nausea/vomiting; telemetry monitoring, atropine PRN, antiemetics -GERD, on famotidine and maalox PRN -GI ppx with famotidine -DVT ppx with SCDs, hold AC due to bleeding risk -Dispo: home -Code status: FULL code Attestations Medical Necessity Statement*: Patient requires hospitalization for continued IV antibiotic treatment given gram negative bacteremia, acute pyelonephritis. Time Spent in Patient Care: Greater than 35 minutes (>than 50% of time spent in counselling and/or direct pt care on unit) . 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
[2019-06-27 21:22] LABS: Glucose Point of Care 164 mg/dL (70-110)
[2019-06-27] MEDS: atorvastatin 40 mg Tablet 20 MG PO (21:32)
[2019-06-27] MEDS: alum-mag-hydroxide-sime 30 mL UDC 15 ML PO (21:32)
[2019-06-28] VITALS: BP 124/71; PULSE 80; RESP 20; TEMP 37.1; O2SAT 90
[2019-06-28] MEDS: piperacillin-tazobactam 3.375 GM in sodium chloride 0.9% (plus) 50 ML IV ×3 (01:07→18:49)
[2019-06-28] MEDS: sodium chloride 0.9% 1,000 ML 125 ML IV ×3 (01:08→12:45)
[2019-06-28 04:00] VITALS: BP 144/77; PULSE 74; RESP 18; TEMP 36.7; O2SAT 90
[2019-06-28 05:59] LABS: Basophils % 0.1 %; Eosinophils # 0.1 10^3/uL (0.0-0.8); Eosinophils % 0.3 %; Hematocrit 30.5 % (37.0-47.0); Lymphocytes # 1.7 10^3/uL (0.8-4.8); Lymphocytes % 8.6 %; Mean Corpuscular HGB Conc 32.8 g/dL (30.0-36.0); Mean Corpuscular Hemoglobin 28.2 pg (28.0-34.0); Mean Corpuscular Volume 86.2 fL (81-99); Monocytes # 0.6 10^3/uL (0.2-0.9); Monocytes % 3.1 %; Neutrophils # 17.3 10^3/uL (1.8-7.7); Neutrophils % 86.7 %; Nucleated Red Blood Cells % 0 %; Platelet Count 186 10^3/cmm (130-400); Red Blood Count 3.54 10^6/uL (4.1-5.3); Red Cell Distribution Width 15.6 % (12.1-15.1); White Blood Count 19.9 10^3/uL (4.0-10.0)
[2019-06-28 06:09] LABS: Anion Gap 14.9 (5-19); Blood Urea Nitrogen 21 mg/dL (8-23); Calcium 7.2 mg/dL (8.5-10.5); Carbon Dioxide 19 mmol/L (22-29); Chloride 110 mmol/L (98-107); Glucose 183 mg/dL (65-115); Osmolality Calculated 293 mOsm/kg (285-295); Sodium 141 mmol/L (136-145)
[2019-06-28 06:32] LABS: Glucose Point of Care 157 mg/dL (70-110)
[2019-06-28 06:33] LABS: Potassium 2.9 mmol/L (3.5-5.1)
[2019-06-28 07:40] LABS: Magnesium 1.7 mg/dL (1.7-2.3)
[2019-06-28] MEDS: NIFEdipine ER (24 hr) 30 mg Tablet 60 MG PO (07:43)
[2019-06-28] MEDS: famotidine 20 mg Tablet PO (07:43)
[2019-06-28 07:58] VITALS: BP 128/84; PULSE 85; RESP 18; TEMP 36.8; O2SAT 93
--- NOTE | 2019-06-28 08:49 | PC.NURSE ---
SHOWER changed bedlinens and gathered supplies for shower and bed change. BRANDEN Elizabeth assised patient to shower with shower chair and assisted in showering patient. I changed bedding and cleaned room getting rid of all access trash (extra cups and tissues). Assisted patient to chair after shower where she sat beside spouse. Spouse. JAMIL, VESTA
--- NOTE | 2019-06-28 08:52 | PC.NURSE ---
SETH CARE, ORAL CARE AND BEDDING CHANGED. Patient assisted to restroom by myself and setup patient for seth-care. No BM. Setup patient for oral care and encourage patient to do oral care. She brushed her dentures, washed her mouth with mouthwash and washed face with washcloth. SBA to chair to setup for breakfast. Administered medications. Placed call-light beside patient and asked if she needed anything before leaving room. patient stated she did not want her tray and she kept her orange juice and i provided a fresh cup of ice water per her request. she stated she would like to setup for a while. I encouraged patient to use the call light that i placed in her lap if she needed assistance to bed. I also provided a new emesis basin and reminded her again to call for anything. She was a/o x 4. VESTA NEGRON
--- NOTE | 2019-06-28 10:28 | PC.NURSE ---
EMESIS EMESIS X4 AMOUNT IS APPROX. 30 ML OF GREEN/YELLOWISH BILE. NO PARTICALS. SMW, [employer]
[2019-06-28] MEDS: ondansetron 2 mg/ML SDV 2 mL 4 MG IVP (10:41)
[2019-06-28 11:28] LABS: Glucose Point of Care 153 mg/dL (70-110)
[2019-06-28 11:44] VITALS: BP 152/86; PULSE 89; RESP 16; TEMP 36.7; O2SAT 92
--- NOTE | 2019-06-28 13:35 | PM.PN ---
Subjective Subjective: Interval history: Started to have nauzea and vomiting yeterday and complaints of left sided abdominal pian. Vitals/I&O/Wt Last Vital Signs Temp 98.1 F 06/28/19 11:44 Pulse 89 06/28/19 11:44 Resp 16 06/28/19 11:44 BP 152/86 06/28/19 11:44 Pulse Ox 92 06/28/19 11:44 06/27/19 06/28/19 06/28/19 22:59 06:59 14:59 Intake Total 1170 / 2012.917 793.75 / 2806.667 1692.083 / 1692.083 Output Total 1470 / 1470 550 / 2020 480 / 480 Balance -300 / 542.917 243.75 / 882.486 8851.083 / 1212.083 Physical Exam Const: COMMON NORMALS: no apparent distress and oriented x3 GENERAL APPEARANCE: cooperative ORIENTATION/CONSCIOUSNESS: Yes awake, Yes oriented to person, Yes oriented to place and Yes oriented to time HENMT: COMMON NORMALS: normocephalic HEAD & SCALP: normocephalic Eye: COMMON NORMALS: PERRL and no scleral icterus PUPIL: Yes PERRL GI: COMMON NORMALS: soft to palpation; negative for no hepatosplenomegaly INSPECTION: Yes normal to inspection PALPATION: Yes soft, No firm, Yes tender Details: LLQ, LUQ and other (No mullen's sign or RUQ tenderness appreciated at the this point), No guarding, No rigid and No no hepatosplenomegaly Neuro: COMMON NORMALS: oriented x3 SENSORIUM/ORIENTATION: Yes oriented to person, Yes oriented to place and Yes oriented to time Urinary Catheter Management^: F: Cath Placed During This Visit: yes Urethral Indwelling: Yes Reason for Continuing Indwelling Catheter: Acute Urinary Retention or Obstruction Urinary Catheter Date of Insertion: 06/25/19 Urinary Catheter Time of Insertion: 08:55 Data : 06/29/19 04:30 06/29/19 04:30 Micro: Microbiology 06/26/19 16:24 Blood Culture - Preliminary Blood NEGATIVE TO DATE 06/26/19 16:20 Blood Culture - Preliminary Blood NEGATIVE TO DATE 06/24/19 21:19 Urine Culture - Final Urine,Clean Catch Escherichia coli 06/24/19 22:30 Blood Culture - Preliminary Blood Escherichia coli 06/24/19 22:35 Blood Culture - Preliminary Blood Escherichia coli A&P Assessment and plan (1) Dilation of biliary tract: From surgical standpoint of view No evidence of Cholecystitis to justify urgent surgery for the GB,particularly in the abscence of MRCP findigs of such and clinically no tenderness,with regard to the nauzea and vomiting,other causes should be ruled out like Gastritis and peptic ulcer diease due to stress of infection related to her Kidney infection. Recommand to add Carafate and and PUD diet Status: Acute Code(s): K83.8 - Other specified diseases of biliary tract (2) Acute cholecystitis: After thorough history physical examination and reviewing the chart, I do believe clinically the patient does not have any evidence of acute cholecystitis. Status: Acute Code(s): K81.0 - Acute cholecystitis Attestations Medical Necessity Statement*: Medical necessity care is expected to cross 2 midnights Time Spent in Patient Care: 16 - 35 minutes (>than 50% of time spent in counselling and/or direct pt care on unit). Coding Level of Care Code Acute Software Performance Engineer for Chg Fwd Exam Expanded Problem Focused Diagnoses Dilation of biliary tract K83.8 Acute cholecystitis K81.0
--- NOTE | 2019-06-28 13:49 | PM.PN ---
Subjective Subjective: Interval history: Per nursing staff report, patient has continued to have nausea and vomiting (bilious). Currently NPO. AM labs noted, decreasing leukocytosis, improved renal function, stable Hg, hypokalemia; K replacement ongoing IV. Case discussed briefly with Dr. Young, no need for surgical intervention at this time; recommended addition of carafate and PUD-appropriate diet. Had 550 mL urine output overnight, on IVF. POD # 3 s/p L ureteral stent placement. No complaints currently, benign abdominal exam. Medications: Reviewed: Yes Medication Review Details: Active Medications Generic Name Dose Route Start Last Admin Trade Name Freq PRN Reason Stop Dose Admin Acetaminophen 650 mg 06/24/19 23:13 06/25/19 19:20 Tylenol PO 650 mg Q6H PRN Administration Mild/Mod Pain Or Temp >/= 101 Al Hydrox/Mg [place] x/Simethicone 15 ml 06/26/19 17:20 06/27/19 21:32 Maalox PO 15 ml Q4H PRN Administration INDIGESTION Atorvastatin Calci um 20 mg 06/27/19 21:00 06/27/19 21:32 Lipitor PO 20 mg BEDTIME KURT Administration Atropine Sulfate 0.5 mg 06/27/19 20:17 Atropine Syr IVP PRN PRN HEART RATE < 40/M IN Camphor/Menthol/Ph enol 1 applic 06/28/19 11:00 Blistex TOPICAL PRN PRN DRYNESS Dextrose 50 ml 06/25/19 01:09 D50w IVP PRN PRN hypoglycemia prot ocol Protocol Famotidine 20 mg 06/26/19 18:00 06/28/19 07:43 Pepcid Tab PO 20 mg BID KURT Administration Glucagon 1 mg 06/25/19 01:09 Glucagen IM ONCE PRN Adult Acute Hypog lycemia Prot. Protocol Sodium Chloride 1,000 mls @ 125 m ls/hr 06/25/19 13:00 06/28/19 12:45 Sodium Chloride 0.9% IV 125 mls/hr .Q8H KURT Administration Piperacillin Sod/T azobactam 50 mls @ 12.5 mls /hr 06/28/19 11:30 06/28/19 11:18 Sod 3.375 gm/ So dium Chloride IV 12.5 mls/hr Q8H KURT Administration Protocol Insulin Aspart 0 unit 03/22/20 08:00 06/28/19 11:18 Novolog SUBCUT 4 unit WM&BEDTIME KURT Administration Protocol Metoclopramide HCl 5 mg 06/27/19 20:10 Reglan IVP Q6H PRN NAUSEA AND VOMITI NG Nifedipine 60 mg 06/25/19 09:00 06/28/19 07:43 Procardia Xl PO 60 mg DAILY KURT Administration Ondansetron HCl 4 mg 06/24/19 23:13 06/28/19 10:41 Zofran IVP 4 mg Q6H PRN Administration NAUSEA AND VOMITI NG Sucralfate 1 gm 06/28/19 17:00 Carafate PO AC&BEDTIME KURT Tramadol HCl 50 mg 06/25/19 01:09 Ultram PO Q8H PRN MODERATE PAIN No Known Allergies Allergy (Verified 06/26/19 14:29) Vitals/I&O/Wt Last Vital Signs Temp 98.1 F 06/28/19 11:44 Pulse 89 06/28/19 11:44 Resp 16 06/28/19 11:44 BP 152/86 06/28/19 11:44 Pulse Ox 92 06/28/19 11:44 06/27/19 06/28/19 06/28/19 22:59 06:59 14:59 Intake Total 1170 / 2011.917 793.75 / 2806.667 1692.083 / 1692.083 Output Total 1470 / 1470 550 / 2020 480 / 480 Balance -300 / 542.917 243.75 / 949.578 4795.083 / 1212.083 Physical Exam Const: COMMON NORMALS: no apparent distress and oriented x3 GENERAL APPEARANCE: cooperative, comfortable and frail appearing; not ill appearing and not diaphoretic NUTRITIONAL APPEARANCE: thin ORIENTATION/CONSCIOUSNESS: Yes awake OTHER: -looks younger than stated age HENMT: COMMON NORMALS: normocephalic, head/scalp atraumatic, hearing grossly normal bilaterally and moist oral mucous membranes HEAD & SCALP: normocephalic and atraumatic Eye: COMMON NORMALS: PERRL, EOMs intact bilaterally and conjunctivae normal CONJUNCTIVA: Yes conjunctivae normal PUPIL: Yes PERRL Neck/C-Spine: COMMON NORMALS: full ROM GENERAL: Yes normal visual inspection and Yes trachea midline Resp: COMMON NORMALS: normal respiratory effort, no retractions, no use of accessory muscles and clear to auscultation bilaterally EFFORT & INSPECTION: Yes able to speak in complete sentences, Yes symmetric chest movement and No tachypneic AUSCULTATION: clear to auscultation bilaterally Cardio: COMMON NORMALS: regular rate, regular rhythm, S1 normal heart sound, S2 normal heart sound and no murmurs RATE: regular rate RHYTHM: regular rhythm HEART SOUNDS: S1 normal and S2 normal GI: COMMON NORMALS: normal to inspection, nondistended, normoactive bowel sounds, soft to palpation and non-tender PALPATION: Yes soft, No guarding and No rigid : BLADDER/KIDNEY EXAM: Yes catheter in place Catheter type (Female): urethral Extremity: COMMON NORMALS: normal to inspection, full ROM and no clubbing, cyanosis or edema; negative for no pedal edema Neuro: COMMON NORMALS: oriented x3, moves all extremities, no focal motor deficits, no sensory deficits noted and gait normal Psych: COMMON NORMALS: mental status grossly normal, thought process normal, cooperative, affect normal and speech normal SPEECH: Yes normal speech THOUGHT PROCESS: normal thought process Skin: COMMON NORMALS: no rashes or lesions noted, no jaundice, no petechiae and no mottling GENERAL SKIN EXAM: no rashes or lesions noted Urinary Catheter Management^: F: Cath Placed During This Visit: yes Urethral Indwelling: Yes Reason for Continuing Indwelling Catheter: Acute Urinary Retention or Obstruction Urinary Catheter Date of Insertion: 06/25/19 Urinary Catheter Time of Insertion: 08:55 Data : 06/28/19 05:09 06/28/19 05:09 Micro: Microbiology 06/26/19 16:24 Blood Culture - Preliminary Blood NEGATIVE TO DATE 06/26/19 16:20 Blood Culture - Preliminary Blood NEGATIVE TO DATE 06/24/19 21:19 Urine Culture - Final Urine,Clean Catch Escherichia coli 06/24/19 22:30 Blood Culture - Preliminary Blood Escherichia coli 06/24/19 22:35 Blood Culture - Preliminary Blood Escherichia coli A&P Assessment and plan (1) Ureteral obstruction, left: -Noted to have mild to moderate left hydronephrosis and proximal left hydroureter with left perinephric stranding; increased density in the left ureter distal to the left UPJ with concern for stricture and/or neoplasm -Status post emergent cystoscopy and left ureteral stent placement by Dr. Castillo, POD # 3. Noted to have findings consistent with chronic cystitis in her bladder and purulent urine drained -Has Meyers catheter in place, continue to monitor output -UA indicative for infection -urine cx: E.coli, soto-sensitive -blood cultures: E.coli; repeat set prelim negative -Received a dose of ceftriaxone by due to findings consistent with acute cholecystitis on abdominal ultrasound, is on Zosyn for dual coverage (day 4) -Appreciate Dr. Castillo's input -Pain control, antiemetics as needed -on IV fluid hydration -Vital signs stable, afebrile x 24 hrs, continue to monitor vital signs Status: Acute Code(s): N13.5 - Crossing vessel and stricture of ureter without hydronephrosis (2) Acute pyelonephritis: -UA indicative of infection, CT findings as noted above -urine cx: E.coli, soto-sensitive -blood cultures: E.coli; repeat set prelim negative -Received a dose of ceftriaxone by due to findings consistent with acute cholecystitis on abdominal ultrasound, is on Zosyn for dual coverage -Has had complicated history of recurrent UTIs with cystoscopy revealing findings of chronic cystitis -Noted leukocytosis with a neutrophilic predominance, decreasing, continue to trend WBC -Lactic acid 1.7 Status: Acute Code(s): N10 - Acute pyelonephritis (3) Acute cholecystitis: -Noted findings of cholelithiasis on CT scan, abdominal ultrasound shows acute cholecystitis with CBD dilation of 1.14 cm, no stones -MRCP: mild intrahepatic biliary dilatation, mild GB dilatation with dense large gallstones in GB neck, mild CBD dilatation (3.7 mm); no evidence of choledocholithiasis -LFTs wnl, lipase-45, no mention of RUQ pain on initial admission evaluation -discussed findings with surgery, consult by Dr. 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; baseline Cr is around 1.5-1.7 though has been as high as 2.0 in the past; renal function improving -on IVF hydration Status: Acute Code(s): N17.9 - Acute kidney failure, unspecified (6) Hypertension: -Vital signs stable, continue to monitor Status: Chronic Qualifiers: Hypertension type: essential hypertension Qualified Code(s): I10 - Essential (primary) hypertension Code(s): I10 - Essential (primary) hypertension Additional A&P Information -hx of uterine cancer s/p hysterectomy -Advanced age -HTN; hold BP meds for now including ACEi, diuretics due to renal impairment -noted bradycardia with episodes of nausea/vomiting; telemetry monitoring, atropine PRN, antiemetics -GERD, on famotidine and maalox PRN -Gastritis with noted episodes of nausea/vomiting; had been on Famotidine, switch to PPI and add carafate -IDDM type II; last A1c-7.1 (2013), repeat A1c, continue accucheks, ISS, may have element of gastroparesis, on Reglan -GI ppx with famotidine -DVT ppx with SCDs, hold AC due to bleeding risk -Dispo: home -Code status: FULL code Attestations Medical Necessity Statement*: Patient requires hospitalization for continued IV antibiotics, IVF hydration, management of gastritis. Time Spent in Patient Care: 16 - 35 minutes (>than 50% of time spent in counselling and/or direct pt care on unit). Coding Level of Care Code Acute English As A Second Language Teacher for [facility] Diagnoses Ureteral obstruction, left N13.5 Acute pyelonephritis N10 Acute cholecystitis K81.0 Gram-negative bacteremia R78.81 Acute kidney injury N17.9 Hypertension I10 Hypertension type: essential hypertension
--- NOTE | 2019-06-28 15:09 | PC.NURSE ---
NURSE NOTE Still no new emesis. Patient has been changed to NPO Status. SMW, CONE TREATER
[2019-06-28] MEDS: pantoprazole 40 mg SDV IVP (15:23)
[2019-06-28 15:37] VITALS: BP 146/80; PULSE 80; RESP 16; TEMP 36.8; O2SAT 92
[2019-06-28 17:27] LABS: Glucose Point of Care 116 mg/dL (70-110)
[2019-06-28] MEDS: sucralfate 1 gm Tablet PO ×2 (18:49→20:24)
--- NOTE | 2019-06-28 18:53 | PC.NURSE ---
DR. LARA AT BEDSIDE SPOKE WITH PATIENT ABOUT PAST SURGERY. HE STATES TO SPEAK WITH HOSPITALIST ABOUT REMOVING CATHETER. FROM HIS STAND POINT HE STATES CATHETER CAN COMEOUT.JAMIL, REFINERY OPERATOR COKING
--- NOTE | 2019-06-28 18:55 | PM.PN ---
Subjective Subjective: Interval history: Is feeling better but still not well. Denies any overt renal colic. Still having some nausea and vomiting. Does not appear that the gallbladder findings are particularly threatening at this point I reviewed with her the findings related to the urine cultures, the intraoperative findings, CT scan indication of obstruction probably from infectious sludge, and the follow-up after improvement with antibiotics including flexible endoscopy, stent removal. White count is improving. Fever curve has also improved. Given the pansensitive nature of her bacteria I think she should continue to see that general trend. Would consider renal ultrasound or CT scan if reversal of that trend, looking for potential abscess. Denies shortness of breath, chest pain, abnormal bruising or bleeding, or other acute changes. I think it is reasonable for her Meyers catheter come out now. Vitals/I&O/Wt Last Vital Signs Temp 98.2 F 06/28/19 15:37 Pulse 80 06/28/19 15:37 Resp 16 06/28/19 15:37 BP 146/80 06/28/19 15:37 Pulse Ox 92 06/28/19 15:37 06/28/19 06/28/19 06/28/19 06:59 14:59 22:59 Intake Total 793.75 / 2806.667 1692.083 / 1692.083 50 / 1742.083 Output Total 550 / 2020 480 / 480 350 / 830 Balance 243.75 / 973.769 9341.083 / 1212.083 -300 / 912.083 Physical Exam Const: COMMON NORMALS: no apparent distress and alert Resp: COMMON NORMALS: normal respiratory effort EFFORT & INSPECTION: No tachypneic, No respiratory distress and No audible wheezes Neuro: SENSORIUM/ORIENTATION: Yes alert Psych: COMMON NORMALS: cooperative ATTITUDE: Yes calm and Yes engaged Urinary Catheter Management^: F: Cath Placed During This Visit: yes Urethral Indwelling: Yes Reason for Continuing Indwelling Catheter: Acute Urinary Retention or Obstruction Urinary Catheter Date of Insertion: 06/25/19 Urinary Catheter Time of Insertion: 08:55 Data : 06/28/19 05:09 06/28/19 05:09 Micro: Microbiology 06/26/19 16:24 Blood Culture - Preliminary Blood NEGATIVE TO DATE 06/26/19 16:20 Blood Culture - Preliminary Blood NEGATIVE TO DATE Attestations Medical Necessity Statement*: See attending Coding Level of Care Code 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
--- NOTE | 2019-06-28 18:57 | PC.NURSE ---
EMESIS PATIENT UP TO CHAIR - HAD ONE EPISODE OF EMESIS - SHE BURPED AND SPIT INTO EMESIS BASIN. EMESIS BASIN WAS CLEANED. 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
[2019-06-28 20:00] VITALS: BP 134/60; PULSE 85; RESP 18; TEMP 36.6; O2SAT 95
[2019-06-28] MEDS: atorvastatin 40 mg Tablet 20 MG PO (20:24)
[2019-06-28 20:54] LABS: Glucose Point of Care 155 mg/dL (70-110)
[2019-06-29] VITALS: BP 122/65; PULSE 71; RESP 18; TEMP 36.9; O2SAT 91
[2019-06-29] MEDS: ondansetron 2 mg/ML SDV 2 mL 4 MG IVP ×2 (02:23→09:42)
[2019-06-29] MEDS: pantoprazole 40 mg SDV IVP ×2 (02:23→14:49)
[2019-06-29] MEDS: piperacillin-tazobactam 3.375 GM in sodium chloride 0.9% (plus) 50 ML IV ×3 (02:43→18:33)
[2019-06-29] MEDS: sodium chloride 0.9% 1,000 ML 125 ML IV ×2 (02:47→17:14)
--- NOTE | 2019-06-29 03:05 | PM.EVENT ---
Event Note Event Note: Tonight rather than bradycardic episodes, patient is having intermittent episodes of tachycardia as high as 150s, but not sustaining. Currently in 80s. Will continue to monitor.
[2019-06-29 03:43] VITALS: BP 146/67; PULSE 83; RESP 20; TEMP 36.6; O2SAT 92
[2019-06-29 05:27] LABS: Basophils % 0.1 %; Eosinophils # 0.3 10^3/uL (0.0-0.8); Eosinophils % 1.5 %; Hemoglobin 11.2 g/dL (11.5-15.3); Lymphocytes # 2.3 10^3/uL (0.8-4.8); Lymphocytes % 12.9 %; Mean Corpuscular HGB Conc 32.9 g/dL (30.0-36.0); Mean Corpuscular Hemoglobin 28.1 pg (28.0-34.0); Mean Corpuscular Volume 85.4 fL (81-99); Mean Platelet Volume 11.3 fL (7.4-10.4); Monocytes % 5.4 %; Neutrophils # 13.7 10^3/uL (1.8-7.7); Neutrophils % 78.3 %; Nucleated Red Blood Cells % 0 %; Platelet Count 211 10^3/cmm (130-400); Red Blood Count 3.98 10^6/uL (4.1-5.3); Red Cell Distribution Width 15.5 % (12.1-15.1); White Blood Count 17.5 10^3/uL (4.0-10.0)
[2019-06-29 05:52] LABS: Anion Gap 20.4 (5-19); Blood Urea Nitrogen 18 mg/dL (8-23); Calcium 7.4 mg/dL (8.5-10.5); Carbon Dioxide 16 mmol/L (22-29); Chloride 112 mmol/L (98-107); Glucose 119 mg/dL (65-115); Osmolality Calculated 298 mOsm/kg (285-295); Potassium 3.4 mmol/L (3.5-5.1); Sodium 145 mmol/L (136-145)
[2019-06-29] MEDS: sucralfate 1 gm Tablet PO ×4 (06:17→21:39)
[2019-06-29 06:20] LABS: Estmated Average Glucose 160; Hemoglobin A1C 7.2 % (4.0-6.0)
[2019-06-29 06:38] LABS: Glucose Point of Care 119 mg/dL (70-110)
[2019-06-29 07:52] VITALS: BP 157/64; PULSE 82; RESP 18; TEMP 37; O2SAT 90
[2019-06-29] MEDS: NIFEdipine ER (24 hr) 30 mg Tablet 60 MG PO (09:26)
[2019-06-29] MEDS: lisinopril 10 mg Tablet PO (09:26)
--- NOTE | 2019-06-29 11:15 | PC.CHAP ---
Pastoral Care Encounter/Spiritual Assessment Type of Contact [x] Declined national account representative visit [] Patient/Family/Request visit [] Outpatient visit [] Follow-up visit [] Physician referral [] Code/Alert [] Routine visit [] Staff referral [] Actively dying [] Patient sleeping [] Family support [] [] Out of room [] Palliative care [] [] Receiving care in room [] Pre-surgical visit [] Trauma [] Long length of stay [] ICU visit [] Other: Relational/Emotional Strength [] Patient feels connected with others/family/visitors/staff [] Distress [] Loneliness/isolation [] Abandonment Spirituality of Patient [] Person of Amber [] Attends Nondenominational of their Amber [] Believes in Prayer [] Reads Bible or Muslim materials [] There are Spiritual issues to be addressed 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 [] Prayer [] Active listening [] Non-anxious presence [] Spiritual/emotional support [] Crisis/trauma care [] Spiritual counseling [] Bereavement support [] Provided bereavement packet [] Provided Bible/devotional materials [] Provided toy/stuffed animal, coloring book to patient or family member [] Provided Communion [] Anointing/[place] [] Salvation [] Completed spiritual assessment [] Other: Impact on Illness or Injury [] Angry [] Fearful [] Anxious [] Often cries [] Exhaustion [] Unable to work [] Unable to attend jainism [] Unable to walk/stand [] Unable to read [] Unable to drive [] Unable to eat/drink [] Unable to sleep [] Unable to be with family [] Patient intubated [] Other: Summary Patient declined [place] visit, prayer provided. Time spent with patient 2 minutes
[2019-06-29 11:52] LABS: Glucose Point of Care 131 mg/dL (70-110)
[2019-06-29 11:56] VITALS: BP 136/69; PULSE 82; RESP 17; TEMP 36.5; O2SAT 94
--- NOTE | 2019-06-29 12:02 | P.PN_ITS ---
Subjective Subjective: Interval history: Patient continues to have nausea and vomiting associated with coughing and phlegm that cause irritation the back of her throat and is not associated with any diet she described. Vitals/I&O/Wt Last Vital Signs Temp 97.7 F 06/29/19 11:56 Pulse 82 06/29/19 11:56 Resp 17 06/29/19 11:56 BP 136/69 06/29/19 11:56 Pulse Ox 94 06/29/19 11:56 06/28/19 06/29/19 06/29/19 22:59 06:59 14:59 Intake Total 1100 / 2792.083 50 / 2842.083 Output Total 350 / 830 460 / 1290 Balance 750 / 1962.083 -410 / 1552.083 Physical Exam Narrative: EXAM NARRATIVE: Patient is conscious alert oriented X3 BMI 23.4 Head and neck examination PERRLA no masses no cervical lymphadenopathy no jaundice Abdomen nontender at the right upper quadrant yet slighty tender on the left side of the nondistended soft no organomegaly guarding or rigidity/no signs of peritonitis Patient points to be tender at the right lower quadrant but on examination there was no much tenderness appreciated Urinary Catheter Management^: F: Cath Placed During This Visit: yes Urethral Indwelling: Yes Reason for Continuing Indwelling Catheter: Acute Urinary Retention or Obstruction Urinary Catheter Date of Insertion: 06/25/19 Urinary Catheter Time of Insertion: 08:55 Data : 06/30/19 05:43 06/30/19 05:43 A&P Assessment and plan (1) Nausea and vomiting: Recommend to obtain an upper GI study if symptoms continue to rule out any underlying esophageal pathology I would probably hold off on any diagnostic EGD at this point. Aspiration precaution I did discuss the ultrasound ,CT scan and MRI images with Dr. Vu radiologist and she agreed that there is no evidence of cholecystitis on these images. Please call for any questions or concerns Status: Acute Code(s): R11.2 - Nausea with vomiting, unspecified Attestations Medical Necessity Statement*: Medical necessity care is expected to cross 2 m idnights Time Spent in Patient Care: 16 - 35 minutes (>than 50% of time spent in counselling and/or direct pt care on unit) . 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
[2019-06-29 15:34] VITALS: BP 126/69; PULSE 80; RESP 18; TEMP 36.8; O2SAT 90
--- NOTE | 2019-06-29 15:59 | P.PN_ITS ---
Subjective Subjective: Interval history: POD # 4 s/p L ureteral stent placement. No documented emesis overnight, had 460 mL urine output. VSS. AM labs noted, decreasing leukocytosis, has had some emesis today though decreased compared to yesterday. No nausea vomiting in the past several hours. Would like to try clear liquid diet. Continues to deny abdominal discomfort. Sitter at bedside. Will discontinue Meyers catheter. By description provided seems to have more saliva/phlegm rather than true GI contents when she has episodes of vomiting with description of sensation of something stuck in her esophagus. Noted to have had episodes of tachycardia overnight, rate controlled currently. Medications: Reviewed: Yes Medication Review Details: Active Medications Generic Name Dose Route Start Last Admin Trade Name Freq PRN Reason Stop Dose Admin Acetaminophen 650 mg 06/24/19 23:13 06/25/19 19:20 Tylenol PO 650 mg Q6H PRN Administration Mild/Mod Pain Or Temp >/= 101 Al Hydrox/Mg [place] x/Simethicone 15 ml 06/26/19 17:20 06/27/19 21:32 Maalox PO 15 ml Q4H PRN Administration INDIGESTION Atorvastatin Calci um 20 mg 06/27/19 21:00 06/28/19 20:24 Lipitor PO 20 mg BEDTIME KURT Administration Atropine Sulfate 0.5 mg 06/27/19 20:17 Atropine Syr IVP PRN PRN HEART RATE < 40/M IN Camphor/Menthol/Ph enol 1 applic 06/28/19 11:00 Blistex TOPICAL PRN PRN DRYNESS Dextrose 50 ml 06/25/19 01:09 D50w IVP PRN PRN hypoglycemia prot ocol Protocol Glucagon 1 mg 06/25/19 01:09 Glucagen IM ONCE PRN Adult Acute Hypog lycemia Prot. Protocol Sodium Chloride 1,000 mls @ 125 m ls/hr 06/25/19 13:00 06/29/19 02:47 Sodium Chloride 0.9% IV 125 mls/hr .Q8H KURT Administration Piperacillin Sod/T azobactam 50 mls @ 12.5 mls /hr 06/28/19 11:30 06/29/19 11:45 Sod 3.375 gm/ So dium Chloride IV 12.5 mls/hr Q8H KURT Administration Protocol Insulin Aspart 0 unit 06/25/19 08:00 06/29/19 12:00 Novolog SUBCUT Not Given WM&BEDTIME KURT Protocol Lanolin 1 applic 06/29/19 12:30 Lanolin Oint TOPICAL PRN PRN DRYNESS Lisinopril 10 mg 06/29/19 09:00 06/29/19 09:26 Prinivil PO 10 mg DAILY KURT Administration Metoclopramide HCl 5 mg 06/27/19 20:10 Reglan IVP Q6H PRN NAUSEA AND VOMITI NG Nifedipine 60 mg 06/25/19 09:00 06/29/19 09:26 Procardia Xl PO 60 mg DAILY KURT Administration Ondansetron HCl 4 mg 06/24/19 23:13 06/29/19 09:42 Zofran IVP 4 mg Q6H PRN Administration NAUSEA AND VOMITI NG Pantoprazole Sodiu m 40 mg 06/28/19 14:30 06/29/19 14:49 Protonix IVP 40 mg Q12H KURT Administration Sucralfate 1 gm 06/28/19 17:00 06/29/19 11:46 Carafate PO 1 gm AC&BEDTIME KURT Administration No Known Allergies Allergy (Verified 06/26/19 14:29) Vitals/I&O/Wt Last Vital Signs Temp 98.3 F 06/29/19 15:34 Pulse 80 06/29/19 15:34 Resp 18 06/29/19 15:34 BP 126/69 06/29/19 15:34 Pulse Ox 90 06/29/19 15:34 06/29/19 06/29/19 06/29/19 06:59 14:59 22:59 Intake Total 50 / 2842.083 Output Total 460 / 1290 600 / 600 Balance -410 / 1552.083 -600 / -600 Physical Exam Const: COMMON NORMALS: no apparent distress and oriented x3 GENERAL APPEARANCE: cooperative, comfortable and frail appearing; not ill appearing and not diaphoretic NUTRITIONAL APPEARANCE: thin ORIENTATION/CONSCIOUSNESS: Yes awake OTHER: -looks younger than stated age HENMT: COMMON NORMALS: normocephalic, head/scalp atraumatic, hearing grossly normal bilaterally and moist oral mucous membranes HEAD & SCALP: normocephalic and atraumatic Eye: COMMON NORMALS: PERRL, EOMs intact bilaterally and conjunctivae normal CONJUNCTIVA: Yes conjunctivae normal PUPIL: Yes PERRL Neck/C-Spine: COMMON NORMALS: full ROM GENERAL: Yes normal visual inspection and Yes trachea midline Resp: COMMON NORMALS: normal respiratory effort, no retractions, no use of accessory muscles and clear to auscultation bilaterally EFFORT & INSPECTION: Yes able to speak in complete sentences, Yes symmetric chest movement and No tachypneic AUSCULTATION: clear to auscultation bilaterally Cardio: COMMON NORMALS: regular rate, regular rhythm, S1 normal heart sound, S2 normal heart sound and no murmurs RATE: regular rate RHYTHM: regular rhythm HEART SOUNDS: S1 normal and S2 normal GI: COMMON NORMALS: normal to inspection, nondistended, normoactive bowel sounds, soft to palpation and non-tender PALPATION: Yes soft, No guarding and No rigid : BLADDER/KIDNEY EXAM: Yes catheter in place Catheter type (Female): urethral Extremity: COMMON NORMALS: normal to inspection, full ROM and no clubbing, cyanosis or edema; negative for no pedal edema Neuro: COMMON NORMALS: oriented x3, moves all extremities, no focal motor deficits, no sensory deficits noted and gait normal Psych: COMMON NORMALS: mental status grossly normal, thought process normal, cooperative, affect normal and speech normal SPEECH: Yes normal speech THOUGHT PROCESS: normal thought process Skin: COMMON NORMALS: no rashes or lesions noted, no jaundice, no petechiae and no mottling GENERAL SKIN EXAM: no rashes or lesions noted Urinary Catheter Management^: F: Cath Placed During This Visit: yes Urethral Indwelling: Yes Reason for Continuing Indwelling Catheter: Acute Urinary Retention or Obstruction Urinary Catheter Date of Insertion: 06/25/19 Urinary Catheter Time of Insertion: 08:55 Data : 06/29/19 04:30 06/29/19 04:30 Micro: Microbiology 06/24/19 22:30 Blood Culture - Final Blood Escherichia coli 06/24/19 22:35 Blood Culture - Final Blood Escherichia coli A&P Assessment and plan (1) Ureteral obstruction, left: -Noted to have mild to moderate left hydronephrosis and proximal left hydroureter with left perinephric stranding; increased density in the left ureter distal to the left UPJ with concern for stricture and/or neoplasm -Status post emergent cystoscopy and left ureteral stent placement by Dr. Castillo, POD # 4. Noted to have findings consistent with chronic cystitis in her bladder and purulent urine drained -Has Meyers catheter in place, continue to monitor output; discontinue today -UA indicative for infection -urine cx: E.coli, soto-sensitive -blood cultures: E.coli; repeat set prelim negative -Received a dose of ceftriaxone by due to findings consistent with acute cholecystitis on abdominal ultrasound, is on Zosyn for dual coverage (day 4) -Appreciate Dr. Castillo's input -Pain control, antiemetics as needed -on IV fluid hydration -Vital signs stable, afebrile x 24 hrs, continue to monitor vital signs Status: Acute Code(s): N13.5 - Crossing vessel and stricture of ureter without hydronephrosis (2) Acute pyelonephritis: -UA indicative of infection, CT findings as noted above -urine cx: E.coli, soto-sensitive -blood cultures: E.coli; repeat set prelim negative -Received a dose of ceftriaxone by due to findings consistent with acute cholecystitis on abdominal ultrasound, is on Zosyn for dual coverage -Has had complicated history of recurrent UTIs with cystoscopy revealing findings of chronic cystitis -Noted leukocytosis with a neutrophilic predominance, decreasing, continue to trend WBC -Lactic acid 1.7 Status: Acute Code(s): N10 - Acute pyelonephritis (3) Acute cholecystitis: -Noted findings of cholelithiasis on CT scan, abdominal ultrasound shows acute cholecystitis with CBD dilation of 1.14 cm, no stones -MRCP: mild intrahepatic biliary dilatation, mild GB dilatation with dense large gallstones in GB neck, mild CBD dilatation (3.7 mm); no evidence of choledocholithiasis -LFTs wnl, lipase-45, no mention of RUQ pain on initial admission evaluation -discussed findings with surgery, consult by Dr. 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; baseline Cr is around 1.5-1.7 though has been as high as 2.0 in the past; renal function improving -on IVF hydration Status: Acute Code(s): N17.9 - Acute kidney failure, unspecified (6) Hypertension: -Vital signs stable, continue to monitor Status: Chronic Qualifiers: Hypertension type: essential hypertension Qualified Code(s): I10 - Essential (primary) hypertension Code(s): I10 - Essential (primary) hypertension Additional A&P Information -hx of uterine cancer s/p hysterectomy -Advanced age -HTN; hold BP meds for now including ACEi, diuretics due to renal impairment -noted bradycardia with episodes of nausea/vomiting; telemetry monitoring, atropine PRN, antiemetics. Overnight, had episodes of tachycardia; likely due to acute infectious process but may need event monitoring on d/c for evaluation of underlying arrhythmia -GERD, on famotidine and maalox PRN -Gastritis with noted episodes of nausea/vomiting; had been on Famotidine, switched to PPI and add carafate -IDDM type II; last A1c-7.1 (2013), repeat A1c, continue accucheks, ISS, may have element of gastroparesis, on Reglan -GI ppx with PPI -DVT ppx with SCDs, hold AC due to bleeding risk -has been NPO secondary to N/V, will start on CLD and monitor tolerance -Dispo: home -Code status: FULL code Attestations Medical Necessity Statement*: Patient requires hospitalization for continued IV antibiotics and hydration, resumed PO intake today. Time Spent in Patient Care: 16 - 35 minutes (>than 50% of time spent in counselling and/or direct pt care on unit) . Coding Level of Care Code Acute Audit Control Clerk for g Fwd Exam Comprehensive Diagnoses Ureteral obstruction, left N13.5 Acute pyelonephritis N10 Acute cholecystitis K81.0 Gram-negative bacteremia R78.81 Acute kidney injury N17.9 Hypertension I10 Hypertension type: essential hypertension
[2019-06-29 16:53] LABS: Glucose Point of Care 134 mg/dL (70-110)
--- NOTE | 2019-06-29 18:39 | PC.NURSE ---
Meyers Meyers dcd and pt tolerated it well. 5mlns removed from balloon.
[2019-06-29 20:00] VITALS: BP 138/70; PULSE 78; RESP 18; TEMP 36.4; O2SAT 93
[2019-06-29 21:24] LABS: Glucose Point of Care 148 mg/dL (70-110)
[2019-06-29] MEDS: atorvastatin 40 mg Tablet 20 MG PO (21:39)
[2019-06-30] VITALS: BP 132/74; PULSE 76; RESP 18; TEMP 36.6; O2SAT 94
[2019-06-30] MEDS: pantoprazole 40 mg SDV IVP ×2 (02:34→14:35)
[2019-06-30] MEDS: piperacillin-tazobactam 3.375 GM in sodium chloride 0.9% (plus) 50 ML IV ×3 (02:34→18:37)
[2019-06-30] MEDS: sodium chloride 0.9% 1,000 ML 125 ML IV ×3 (02:35→18:37)
[2019-06-30 04:00] VITALS: BP 126/71; PULSE 72; RESP 17; TEMP 36.4; O2SAT 93
[2019-06-30] MEDS: sucralfate 1 gm Tablet PO ×4 (06:12→20:17)
[2019-06-30 06:20] LABS: Basophils % 0.1 %; Eosinophils # 0.4 10^3/uL (0.0-0.8); Eosinophils % 2.1 %; Hematocrit 30.7 % (37.0-47.0); Hemoglobin 10.4 g/dL (11.5-15.3); Lymphocytes # 2.5 10^3/uL (0.8-4.8); Lymphocytes % 13.9 %; Mean Corpuscular HGB Conc 33.9 g/dL (30.0-36.0); Mean Corpuscular Hemoglobin 28.7 pg (28.0-34.0); Mean Corpuscular Volume 84.8 fL (81-99); Mean Platelet Volume 11.2 fL (7.4-10.4); Monocytes # 1.2 10^3/uL (0.2-0.9); Monocytes % 6.6 %; Neutrophils # 13.4 10^3/uL (1.8-7.7); Nucleated Red Blood Cells % 0 %; Platelet Count 211 10^3/cmm (130-400); Red Blood Count 3.62 10^6/uL (4.1-5.3); Red Cell Distribution Width 15.4 % (12.1-15.1); White Blood Count 17.9 10^3/uL (4.0-10.0)
[2019-06-30 06:36] LABS: Anion Gap 20.1 (5-19); Blood Urea Nitrogen 20 mg/dL (8-23); Calcium 7.4 mg/dL (8.5-10.5); Carbon Dioxide 16 mmol/L (22-29); Chloride 112 mmol/L (98-107); Glucose 160 mg/dL (65-115); Osmolality Calculated 300 mOsm/kg (285-295); Potassium 3.1 mmol/L (3.5-5.1); Sodium 145 mmol/L (136-145)
[2019-06-30 06:40] LABS: Glucose Point of Care 148 mg/dL (70-110)
[2019-06-30 06:54] LABS: Slide Review Slide Review Perform
[2019-06-30 07:41] VITALS: BP 149/81; PULSE 88; RESP 20; TEMP 36.9; O2SAT 93
[2019-06-30] MEDS: NIFEdipine ER (24 hr) 30 mg Tablet 60 MG PO (08:31)
[2019-06-30] MEDS: lisinopril 10 mg Tablet PO (08:32)
[2019-06-30] MEDS: sennosides-docusate Tablet 2 TAB PO (08:32)
--- NOTE | 2019-06-30 08:44 | PC.NURSE ---
Patient spit up some phlegm after taking her morning medications while I was in the room with her. No pills were noted to be in the phlegm. Patient states that she has been Belching up phlegm since before she came to the hospital.
--- NOTE | 2019-06-30 11:08 | PC.NURSE ---
Patient states that they removed her catheter yesterday. Patient states she has been urinating just fine.
[2019-06-30 11:20] LABS: Glucose Point of Care 126 mg/dL (70-110)
[2019-06-30 11:44] VITALS: BP 152/78; PULSE 79; RESP 20; TEMP 36.9; O2SAT 91
[2019-06-30 15:34] VITALS: BP 151/76; PULSE 74; RESP 16; TEMP 36.6
[2019-06-30 17:13] LABS: Glucose Point of Care 135 mg/dL (70-110)
--- NOTE | 2019-06-30 19:17 | PM.PN ---
Subjective Subjective: Interval history: Patient seen and examined earlier this afternoon, has had a couple of bowel movements and was incontinent, reportedly had some spit up earlier this morning. Was able to take her oral medications without difficulty. Continues to complain of sensation of something stuck in her throat. Morning labs noted, stable leukocytosis, hemoglobin dropped slightly from 11.2->10.4. Also noted hypokalemia with a potassium of 3.1, creatinine of 1.4. Had 750 mL urine output overnight. Afebrile, vital signs stable. POD # 5 s/p L ureteral stent placement. Medications: Reviewed: Yes Medication Review Details: Active Medications Generic Name Dose Route Start Last Admin Trade Name Freq PRN Reason Stop Dose Admin Acetaminophen 650 mg 06/24/19 23:13 06/25/19 19:20 Tylenol PO 650 mg Q6H PRN Administration Mild/Mod Pain Or Temp >/= 101 Al Hydrox/Mg [place] x/Simethicone 15 ml 06/26/19 17:20 06/27/19 21:32 Maalox PO 15 ml Q4H PRN Administration INDIGESTION Atorvastatin Calci um 20 mg 06/27/19 21:00 06/29/19 21:39 Lipitor PO 20 mg BEDTIME KURT Administration Atropine Sulfate 0.5 mg 06/27/19 20:17 Atropine Syr IVP PRN PRN HEART RATE < 40/M IN Camphor/Menthol/Ph enol 1 applic 06/28/19 11:00 Blistex TOPICAL PRN PRN DRYNESS Dextrose 50 ml 06/25/19 01:09 D50w IVP PRN PRN hypoglycemia prot ocol Protocol Glucagon 1 mg 06/25/19 01:09 Glucagen IM ONCE PRN Adult Acute Hypog lycemia Prot. Protocol Piperacillin Sod/T azobactam 50 mls @ 12.5 mls /hr 06/28/19 11:30 06/30/19 18:37 Sod 3.375 gm/ So dium Chloride IV 12.5 mls/hr Q8H KURT Administration Protocol Insulin Aspart 0 unit 06/25/19 08:00 06/30/19 17:37 Novolog SUBCUT Not Given WM&BEDTIME KURT Protocol Lanolin 1 applic 06/29/19 12:30 Lanolin Oint TOPICAL PRN PRN DRYNESS Lisinopril 10 mg 06/29/19 09:00 06/30/19 08:32 Prinivil PO 10 mg DAILY KURT Administration Metoclopramide HCl 5 mg 06/27/19 20:10 Reglan IVP Q6H PRN NAUSEA AND VOMITI NG Nifedipine 60 mg 06/25/19 09:00 06/30/19 08:31 Procardia Xl PO 60 mg DAILY KURT Administration Ondansetron HCl 4 mg 06/24/19 23:13 06/29/19 09:42 Zofran IVP 4 mg Q6H PRN Administration NAUSEA AND VOMITI NG Pantoprazole Sodiu m 40 mg 06/28/19 14:30 06/30/19 14:35 Protonix IVP 40 mg Q12H KURT Administration Polyethylene Glyco l 17 gm 06/29/19 19:00 06/30/19 08:24 Miralax PO Not Given DAILY KURT Senna/Docusate Sod ium 2 tab 06/30/19 09:00 06/30/19 17:37 Senna-S PO Not Given BID KURT Sucralfate 1 gm 06/28/19 17:00 06/30/19 17:35 Carafate PO 1 gm AC&BEDTIME UKRT Administration No Known Allergies Allergy (Verified 06/26/19 14:29) Vitals/I&O/Wt Last Vital Signs Temp 97.9 F 06/30/19 15:34 Pulse 74 06/30/19 15:34 Resp 16 06/30/19 15:34 BP 151/76 06/30/19 15:34 Pulse Ox 91 06/30/19 11:44 06/30/19 06/30/19 06/30/19 06:59 14:59 22:59 Intake Total 1531.458 / 2701.458 618.542 / 869.054 2274.167 / 1672.709 Output Total 650 / 1525 530 / 530 150 / 680 Balance 881.458 / 1176.458 88.542 / 88.542 904.167 / 992.709 Physical Exam Const: COMMON NORMALS: no apparent distress and oriented x3 GENERAL APPEARANCE: cooperative, comfortable and frail appearing; not ill appearing and not diaphoretic NUTRITIONAL APPEARANCE: thin ORIENTATION/CONSCIOUSNESS: Yes awake OTHER: -looks younger than stated age HENMT: COMMON NORMALS: normocephalic, head/scalp atraumatic, hearing grossly normal bilaterally and moist oral mucous membranes HEAD & SCALP: normocephalic and atraumatic Eye: COMMON NORMALS: PERRL, EOMs intact bilaterally and conjunctivae normal CONJUNCTIVA: Yes conjunctivae normal PUPIL: Yes PERRL Neck/C-Spine: COMMON NORMALS: full ROM GENERAL: Yes normal visual inspection and Yes trachea midline Resp: COMMON NORMALS: normal respiratory effort, no retractions, no use of accessory muscles and clear to auscultation bilaterally EFFORT & INSPECTION: Yes able to speak in complete sentences, Yes symmetric chest movement and No tachypneic AUSCULTATION: clear to auscultation bilaterally Cardio: COMMON NORMALS: regular rate, regular rhythm, S1 normal heart sound, S2 normal heart sound and no murmurs RATE: regular rate RHYTHM: regular rhythm HEART SOUNDS: S1 normal and S2 normal GI: COMMON NORMALS: normal to inspection, nondistended, normoactive bowel sounds, soft to palpation and non-tender INSPECTION: Yes central obesity PALPATION: Yes soft, No guarding and No rigid Extremity: COMMON NORMALS: normal to inspection, full ROM and no clubbing, cyanosis or edema; negative for no pedal edema Neuro: COMMON NORMALS: oriented x3, moves all extremities, no focal motor deficits, no sensory deficits noted and gait normal Psych: COMMON NORMALS: mental status grossly normal, thought process normal, cooperative, affect normal and speech normal SPEECH: Yes normal speech THOUGHT PROCESS: normal thought process Skin: COMMON NORMALS: no rashes or lesions noted, no jaundice, no petechiae and no mottling GENERAL SKIN EXAM: no rashes or lesions noted Urinary Catheter Management^: F: Cath Placed During This Visit: yes, but has since been removed by the nurse Urethral Indwelling: Yes Reason for Continuing Indwelling Catheter: Acute Urinary Retention or Obstruction Urinary Catheter Date of Insertion: 06/25/19 Urinary Catheter Time of Insertion: 08:55 Date Urinary Catheter Removed: 06/29/19 Data : 06/30/19 05:43 06/30/19 05:43 A&P Assessment and plan (1) Ureteral obstruction, left: -Noted to have mild to moderate left hydronephrosis and proximal left hydroureter with left perinephric stranding; increased density in the left ureter distal to the left UPJ with concern for stricture and/or neoplasm -Status post emergent cystoscopy and left ureteral stent placement by Dr. Castillo, POD # 5. Noted to have findings consistent with chronic cystitis in her bladder and purulent urine drained -Has Meyers catheter in place, continue to monitor output; discontinued -UA indicative for infection -urine cx: E.coli, soto-sensitive -blood cultures: E.coli; repeat set prelim negative -Received a dose of ceftriaxone by due to findings consistent with acute cholecystitis on abdominal ultrasound, is on Zosyn for dual coverage (day 4); will switch to Ceftriaxone per culture sensitivity as no evidence of acute cholecystitis -Appreciate Dr. Castillo's input -Pain control, antiemetics as needed -on IV fluid hydration -Vital signs stable, afebrile x > 24 hrs, continue to monitor vital signs Status: Acute Code(s): N13.5 - Crossing vessel and stricture of ureter without hydronephrosis (2) Acute pyelonephritis: -UA indicative of infection, CT findings as noted above -urine cx: E.coli, soto-sensitive -blood cultures: E.coli; repeat set prelim negative -Received a dose of ceftriaxone by due to findings consistent with acute cholecystitis on abdominal ultrasound, is on Zosyn for dual coverage; switch to ceftriaxone -Has had complicated history of recurrent UTIs with cystoscopy revealing findings of chronic cystitis -Noted leukocytosis with a neutrophilic predominance, decreasing, continue to trend WBC -Lactic acid 1.7 Status: Acute Code(s): N10 - Acute pyelonephritis (3) Acute cholecystitis: -Noted findings of cholelithiasis on CT scan, abdominal ultrasound shows acute cholecystitis with CBD dilation of 1.14 cm, no stones -MRCP: mild intrahepatic biliary dilatation, mild GB dilatation with dense large gallstones in GB neck, mild CBD dilatation (3.7 mm); no evidence of choledocholithiasis -LFTs wnl, lipase-45, no mention of RUQ pain on initial admission evaluation -discussed findings with surgery, consult by Dr. 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; baseline Cr is around 1.5-1.7 though has been as high as 2.0 in the past; renal function improving -on IVF hydration Status: Acute Code(s): N17.9 - Acute kidney failure, unspecified (6) Hypertension: -Vital signs stable, continue to monitor Status: Chronic Qualifiers: Hypertension type: essential hypertension Qualified Code(s): I10 - Essential (primary) hypertension Code(s): I10 - Essential (primary) hypertension Additional A&P Information -hx of uterine cancer s/p hysterectomy -Advanced age -HTN; hold BP meds for now including ACEi, diuretics due to renal impairment -noted bradycardia with episodes of nausea/vomiting; telemetry monitoring, atropine PRN, antiemetics. Then had episodes of tachycardia; likely due to acute infectious process but may need event monitoring on d/c for evaluation of underlying arrhythmia -GERD, on famotidine and maalox PRN -Gastritis with noted episodes of nausea/vomiting; had been on Famotidine, switched to PPI and add carafate -IDDM type II; A1c-7.2, continue accucheks, ISS, may have element of gastroparesis, on Reglan -patient has 1:1 sitter ordered by administration -GI ppx with PPI -DVT ppx with SCDs, hold AC due to bleeding risk -on CLD; advance to GI soft diet -Dispo: home -Code status: FULL code Attestations Medical Necessity Statement*: Patient requires hospitalization for continued IV antibiotic treatment, IVF hydration as treatment of acute pyelonephritis pending improved oral tolerance. Time Spent in Patient Care: 16 - 35 minutes (>than 50% of time spent in counselling and/or direct pt care on unit). Coding Level of Care Code Acute Rehabilitation Program Coordinator for [facility] Fwd Diagnoses Ureteral obstruction, left N13.5 Acute pyelonephritis N10 Acute cholecystitis K81.0 Gram-negative bacteremia R78.81 Acute kidney injury N17.9 Hypertension I10 Hypertension type: essential hypertension
[2019-06-30 19:43] VITALS: BP 150/81; PULSE 74; RESP 17; TEMP 36.6; O2SAT 92
[2019-06-30] MEDS: cefTRIAXone 1,000 MG in sodium chloride 0.9% (plus) 50 ML 100 MG IV (20:12)
[2019-06-30] MEDS: atorvastatin 40 mg Tablet 20 MG PO (20:16)
[2019-06-30] MEDS: sodium chlor 0.45% +KCl 20 mEq 20 MEQ/1,000 ML BAG 125 MEQ IV (20:25)
[2019-06-30 21:23] LABS: Glucose Point of Care 138 mg/dL (70-110)
[2019-07-01] VITALS (7 sets, daily range): BP systolic 124–161; BP diastolic 68–80; PULSE 70–93; RESP 16–19; TEMP 36.6–37.3; O2SAT 90–96
[2019-07-01] MEDS: pantoprazole 40 mg SDV IVP ×2 (03:24→15:07)
[2019-07-01 05:28] LABS: Basophils % 0.2 %; Eosinophils # 0.6 10^3/uL (0.0-0.8); Eosinophils % 4.5 %; Hematocrit 29.2 % (37.0-47.0); Hemoglobin 9.7 g/dL (11.5-15.3); Lymphocytes # 2.2 10^3/uL (0.8-4.8); Lymphocytes % 17.4 %; Mean Corpuscular HGB Conc 33.2 g/dL (30.0-36.0); Mean Corpuscular Hemoglobin 27.9 pg (28.0-34.0); Mean Corpuscular Volume 83.9 fL (81-99); Mean Platelet Volume 10.9 fL (7.4-10.4); Monocytes % 7.4 %; Neutrophils # 8.5 10^3/uL (1.8-7.7); Nucleated Red Blood Cells % 0 %; Platelet Count 202 10^3/cmm (130-400); Red Blood Count 3.48 10^6/uL (4.1-5.3); Red Cell Distribution Width 15.8 % (12.1-15.1); White Blood Count 12.8 10^3/uL (4.0-10.0)
[2019-07-01 05:48] LABS: Anion Gap 15.1 (5-19); Blood Urea Nitrogen 14 mg/dL (8-23); Calcium 7.5 mg/dL (8.5-10.5); Carbon Dioxide 17 mmol/L (22-29); Chloride 110 mmol/L (98-107); Glucose 127 mg/dL (65-115); Osmolality Calculated 286 mOsm/kg (285-295); Potassium 3.1 mmol/L (3.5-5.1); Sodium 139 mmol/L (136-145)
--- NOTE | 2019-07-01 06:20 | PC.NURSE ---
bilateral arm edema 3+ noted, pt c/o pain in both arms, provider notified, IV fluids stopped at 0430 and arms elevated on pillows.
[2019-07-01 06:35] LABS: Glucose Point of Care 120 mg/dL (70-110)
[2019-07-01] MEDS: lisinopril 10 mg Tablet PO (08:34)
[2019-07-01] MEDS: sucralfate 1 gm Tablet PO (08:34)
[2019-07-01] MEDS: NIFEdipine ER (24 hr) 30 mg Tablet 60 MG PO (08:34)
[2019-07-01] MEDS: bumetanide 0.25 mg/mL SDV 10 mL 1 MG IV (09:02)
[2019-07-01] MEDS: potassium chloride premix 40 MEQ/100 ML PREMIX 25 MEQ IV (09:03)
[2019-07-01] MEDS: ondansetron 2 mg/ML SDV 2 mL 4 MG IVP (09:03)
[2019-07-01] MEDS: lidocaine 1% INJ 20 mL 5 ML IV (09:11)
--- NOTE | 2019-07-01 11:05 | PC.SOCIAL ---
IMM Updated Page 2 of IMM updated and given to patient. Initialed, dated, and timed and placed back in chart.
--- NOTE | 2019-07-01 11:09 | PM.PN ---
Subjective Subjective: Interval history: Had 650 mL urine output overnight with an additional 900 mL so far this morning. Per overnight nursing report was noted to have increased upper extremity edema. IV fluid discontinued and given dose of Bumex. We will keep upper extremities elevated to decrease edema. Patient has poor appetite and per her admission nothing that we have to offer seems appetizing to her. Sitter at bedside. POD # 6 s/p L ureteral stent placement. Nausea seems to have improved. Medications: Reviewed: Yes Medication Review Details: Active Medications Generic Name Dose Route Start Last Admin Trade Name Freq PRN Reason Stop Dose Admin Acetaminophen 650 mg 06/24/19 23:13 06/25/19 19:20 Tylenol PO 650 mg Q6H PRN Administration Mild/Mod Pain Or Temp >/= 101 Al Hydrox/Mg [place] x/Simethicone 15 ml 06/26/19 17:20 06/27/19 21:32 Maalox PO 15 ml Q4H PRN Administration INDIGESTION Atorvastatin Calci um 20 mg 06/27/19 21:00 06/30/19 20:16 Lipitor PO 20 mg BEDTIME KURT Administration Atropine Sulfate 0.5 mg 06/27/19 20:17 Atropine Syr IVP PRN PRN HEART RATE < 40/M IN Camphor/Menthol/Ph enol 1 applic 06/28/19 11:00 Blistex TOPICAL PRN PRN DRYNESS Dextrose 50 ml 06/25/19 01:09 D50w IVP PRN PRN hypoglycemia prot ocol Protocol Glucagon 1 mg 06/25/19 01:09 Glucagen IM ONCE PRN Adult Acute Hypog lycemia Prot. Protocol Ceftriaxone Sodium 1,000 mg/ 50 mls @ 100 mls/ hr 06/30/19 19:30 06/30/19 20:42 Sodium Chloride IV Infused Q24H KURT Infusion Protocol Potassium Chloride /Sodium Chloride 20 meq in 1,000 m ls @ 75 mls/hr 07/01/19 07:00 07/01/19 08:01 Sodium Chlor 0.4 5% +Kcl 20 Meq IV Not Given .[id number] KURT Potassium Chloride 40 meq in 100 mls @ 25 mls/hr 07/01/19 07:59 07/01/19 09:03 K-Nathan IV 07/01/19 11:58 25 mls/hr ONCE ONE Administration Insulin Aspart 0 unit 06/25/19 08:00 07/01/19 08:35 Novolog SUBCUT Not Given WM&BEDTIME [facility] Protocol Lanolin 1 applic 06/29/19 12:30 Lanolin Oint TOPICAL PRN PRN DRYNESS Lisinopril 10 mg 06/29/19 09:00 07/01/19 08:34 Prinivil PO 10 mg DAILY KURT Administration Metoclopramide HCl 5 mg 06/27/19 20:10 Reglan IVP Q6H PRN NAUSEA AND VOMITI NG Nifedipine 60 mg 06/25/19 09:00 07/01/19 08:34 Procardia Xl PO 60 mg DAILY KURT Administration Ondansetron HCl 4 mg 06/24/19 23:13 07/01/19 09:03 Zofran IVP 4 mg Q6H PRN Administration NAUSEA AND VOMITI NG Pantoprazole Sodiu m 40 mg 06/28/19 14:30 07/01/19 03:24 Protonix IVP 40 mg Q12H KURT Administration Polyethylene Glyco l 17 gm 06/29/19 19:00 07/01/19 08:35 Miralax PO Not Given DAILY [facility] Senna/Docusate Sod ium 2 tab 06/30/19 09:00 07/01/19 08:35 Senna-S PO Not Given BID [facility] Sucralfate 1 gm 06/28/19 17:00 07/01/19 10:59 Carafate PO Not Given AC&BEDTIME [facility] No Known Allergies Allergy (Verified 06/26/19 14:29) Vitals/I&O/Wt Last Vital Signs Temp 98.1 F 07/01/19 08:00 Pulse 93 07/01/19 08:00 Resp 16 07/01/19 08:00 BP 161/70 07/01/19 08:00 Pulse Ox 96 07/01/19 08:00 06/30/19 07/01/19 07/01/19 22:59 06:59 14:59 Intake Total 1104.167 / 1722.709 240 / 5357.135 9898 / 2170 Output Total 300 / 830 500 / 1330 900 / 900 Balance 804.167 / 892.709 -260 / 203.146 2815 / 1270 Physical Exam Const: COMMON NORMALS: no apparent distress and oriented x3 GENERAL APPEARANCE: cooperative and comfortable; not ill appearing and not diaphoretic NUTRITIONAL APPEARANCE: thin ORIENTATION/CONSCIOUSNESS: Yes awake OTHER: -looks younger than stated age HENMT: COMMON NORMALS: normocephalic, head/scalp atraumatic, hearing grossly normal bilaterally and moist oral mucous membranes HEAD & SCALP: normocephalic and atraumatic Eye: COMMON NORMALS: PERRL, EOMs intact bilaterally and conjunctivae normal CONJUNCTIVA: Yes conjunctivae normal PUPIL: Yes PERRL Neck/C-Spine: COMMON NORMALS: full ROM GENERAL: Yes normal visual inspection and Yes trachea midline Resp: COMMON NORMALS: normal respiratory effort, no retractions, no use of accessory muscles and clear to auscultation bilaterally EFFORT & INSPECTION: Yes able to speak in complete sentences, Yes symmetric chest movement and No tachypneic AUSCULTATION: clear to auscultation bilaterally Cardio: COMMON NORMALS: regular rate, regular rhythm, S1 normal heart sound, S2 normal heart sound and no murmurs RATE: regular rate RHYTHM: regular rhythm HEART SOUNDS: S1 normal and S2 normal GI: COMMON NORMALS: normal to inspection, nondistended, normoactive bowel sounds, soft to palpation and non-tender INSPECTION: Yes central obesity PALPATION: Yes soft, No guarding and No rigid Extremity: COMMON NORMALS: normal to inspection and full ROM; negative for no pedal edema NARRATIVE EXTREMITY EXAM: -Noted pitting edema of bilateral upper extremities Neuro: COMMON NORMALS: oriented x3, moves all extremities, no focal motor deficits, no sensory deficits noted and gait normal Psych: COMMON NORMALS: mental status grossly normal, thought process normal, cooperative, affect normal and speech normal SPEECH: Yes normal speech THOUGHT PROCESS: normal thought process Skin: COMMON NORMALS: no rashes or lesions noted, no jaundice, no petechiae and no mottling GENERAL SKIN EXAM: no rashes or lesions noted Urinary Catheter Management^: F: Cath Placed During This Visit: yes, but has since been removed by the nurse Urethral Indwelling: Yes Reason for Continuing Indwelling Catheter: Acute Urinary Retention or Obstruction Urinary Catheter Date of Insertion: 06/25/19 Urinary Catheter Time of Insertion: 08:55 Date Urinary Catheter Removed: 06/29/19 Data : 07/01/19 04:49 07/01/19 04:49 A&P Assessment and plan (1) Ureteral obstruction, left: -Noted to have mild to moderate left hydronephrosis and proximal left hydroureter with left perinephric stranding; increased density in the left ureter distal to the left UPJ with concern for stricture and/or neoplasm -Status post emergent cystoscopy and left ureteral stent placement by Dr. Castillo, POD # 6. Noted to have findings consistent with chronic cystitis in her bladder and purulent urine drained -Has Meyers catheter in place, continue to monitor output; discontinued -UA indicative for infection -urine cx: E.coli, soto-sensitive -blood cultures: E.coli; repeat set prelim negative -on Ceftriaxone per culture sensitivity as no evidence of acute cholecystitis -Appreciate Dr. Castillo's input -Pain control, antiemetics as needed -on IV fluid hydration -Vital signs stable, afebrile x > 24 hrs, continue to monitor vital signs Status: Acute Code(s): N13.5 - Crossing vessel and stricture of ureter without hydronephrosis (2) Acute pyelonephritis: -UA indicative of infection, CT findings as noted above -urine cx: E.coli, soto-sensitive -blood cultures: E.coli; repeat set prelim negative -Received a dose of ceftriaxone by due to findings consistent with acute cholecystitis on abdominal ultrasound, is on Zosyn for dual coverage; switch to ceftriaxone -Has had complicated history of recurrent UTIs with cystoscopy revealing findings of chronic cystitis -Noted leukocytosis with a neutrophilic predominance, decreasing, continue to trend WBC -Lactic acid 1.7 Status: Acute Code(s): N10 - Acute pyelonephritis (3) Acute cholecystitis: -Noted findings of cholelithiasis on CT scan, abdominal ultrasound shows acute cholecystitis with CBD dilation of 1.14 cm, no stones -MRCP: mild intrahepatic biliary dilatation, mild GB dilatation with dense large gallstones in GB neck, mild CBD dilatation (3.7 mm); no evidence of choledocholithiasis -LFTs wnl, lipase-45, no mention of RUQ pain on initial admission evaluation -discussed findings with surgery, consult by Dr. 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; baseline Cr is around 1.5-1.7 though has been as high as 2.0 in the past; renal function improving -on IVF hydration Status: Acute Code(s): N17.9 - Acute kidney failure, unspecified (6) Hypertension: -Vital signs stable, continue to monitor Status: Chronic Qualifiers: Hypertension type: essential hypertension Qualified Code(s): I10 - Essential (primary) hypertension Code(s): I10 - Essential (primary) hypertension Additional A&P Information -hx of uterine cancer s/p hysterectomy -Advanced age -HTN; hold BP meds for now including ACEi, diuretics due to renal impairment -noted bradycardia with episodes of nausea/vomiting; telemetry monitoring, atropine PRN, antiemetics. Then had episodes of tachycardia; likely due to acute infectious process but may need event monitoring on d/c for evaluation of underlying arrhythmia -GERD, on famotidine and maalox PRN -Gastritis with noted episodes of nausea/vomiting; had been on Famotidine, switched to PPI and carafate -IDDM type II; A1c-7.2, continue accucheks, ISS, may have element of gastroparesis, on Reglan -patient has 1:1 sitter ordered by administration -GI ppx with PPI -DVT ppx with SCDs, hold AC due to bleeding risk -on GI soft diet -Dispo: home -Code status: FULL code Attestations Medical Necessity Statement*: Patient requires hospitalization for continued IV antibiotic treatment and IVF pending improved oral tolerance. Time Spent in Patient Care: 16 - 35 minutes (>than 50% of time spent in counselling and/or direct pt care on unit). Coding Level of Care Code Acute Chorus Dancer for g Fwd Exam Comprehensive Diagnoses Ureteral obstruction, left N13.5 Acute pyelonephritis N10 Acute cholecystitis K81.0 Gram-negative bacteremia R78.81 Acute kidney injury N17.9 Hypertension I10 Hypertension type: essential hypertension
[2019-07-01 11:20] LABS: Glucose Point of Care 151 mg/dL (70-110)
[2019-07-01 17:15] LABS: Glucose Point of Care 122 mg/dL (70-110)
[2019-07-01] MEDS: cefTRIAXone 1,000 MG in sodium chloride 0.9% (plus) 50 ML 100 MG IV (18:34)
[2019-07-01 21:38] LABS: Glucose Point of Care 159 mg/dL (70-110)
[2019-07-02] VITALS: BP 146/78; PULSE 76; RESP 16; TEMP 37.2; O2SAT 94
[2019-07-02] MEDS: pantoprazole 40 mg SDV IVP ×2 (01:56→14:57)
[2019-07-02 04:00] VITALS: BP 149/76; PULSE 73; RESP 16; TEMP 37.3; O2SAT 94
[2019-07-02 06:01] LABS: Basophils % 0.1 %; Eosinophils # 0.4 10^3/uL (0.0-0.8); Hematocrit 27.9 % (37.0-47.0); Hemoglobin 9.5 g/dL (11.5-15.3); Lymphocytes # 1.4 10^3/uL (0.8-4.8); Lymphocytes % 14.6 %; Mean Corpuscular HGB Conc 34.1 g/dL (30.0-36.0); Mean Corpuscular Hemoglobin 28.4 pg (28.0-34.0); Mean Corpuscular Volume 83.5 fL (81-99); Mean Platelet Volume 10.6 fL (7.4-10.4); Monocytes # 0.7 10^3/uL (0.2-0.9); Monocytes % 7.4 %; Neutrophils # 6.7 10^3/uL (1.8-7.7); Neutrophils % 70.2 %; Nucleated Red Blood Cells % 0 %; Platelet Count 203 10^3/cmm (130-400); Red Blood Count 3.34 10^6/uL (4.1-5.3); Red Cell Distribution Width 15.9 % (12.1-15.1); White Blood Count 9.6 10^3/uL (4.0-10.0)
[2019-07-02 06:26] LABS: Anion Gap 15.1 (5-19); Blood Urea Nitrogen 8 mg/dL (8-23); Calcium 7.6 mg/dL (8.5-10.5); Carbon Dioxide 20 mmol/L (22-29); Chloride 105 mmol/L (98-107); Glucose 146 mg/dL (65-115); Osmolality Calculated 283 mOsm/kg (285-295); Potassium 3.1 mmol/L (3.5-5.1); Sodium 137 mmol/L (136-145)
[2019-07-02 06:34] LABS: Glucose Point of Care 136 mg/dL (70-110)
[2019-07-02 07:57] VITALS: BP 144/71; PULSE 74; RESP 18; TEMP 37.1; O2SAT 93
[2019-07-02] MEDS: lisinopril 10 mg Tablet PO (08:10)
[2019-07-02] MEDS: NIFEdipine ER (24 hr) 30 mg Tablet 60 MG PO (08:10)
--- NOTE | 2019-07-02 08:54 | PM.PN ---
Subjective Subjective: Interval history: She states that she is feeling better. Seems to be overall stronger today. Decreased nausea Vitals/I&O/Wt Last Vital Signs Temp 98.7 F 07/02/19 07:57 Pulse 74 07/02/19 07:57 Resp 18 07/02/19 07:57 BP 144/71 07/02/19 07:57 Pulse Ox 93 07/02/19 07:57 07/01/19 07/02/19 07/02/19 22:59 06:59 14:59 Intake Total 120 / 2364 120 / 2484 Output Total 1200 / 2700 375 / 3075 Balance -1080 / -336 -255 / -591 Physical Exam Const: COMMON NORMALS: no apparent distress and oriented x3 GENERAL APPEARANCE: cooperative and comfortable Resp: COMMON NORMALS: normal respiratory effort EFFORT & INSPECTION: No tachypneic and No respiratory distress Neuro: COMMON NORMALS: oriented x3 Psych: APPEARANCE: Yes grossly normal ATTITUDE: Yes calm Urinary Catheter Management^: F: Cath Placed During This Visit: yes, but has since been removed by the nurse Urethral Indwelling: Yes Reason for Continuing Indwelling Catheter: Acute Urinary Retention or Obstruction Urinary Catheter Date of Insertion: 06/25/19 Urinary Catheter Time of Insertion: 08:55 Date Urinary Catheter Removed: 06/29/19 Data : 07/02/19 05:21 07/02/19 05:21 Micro: Microbiology 06/26/19 16:20 Blood Culture - Final Blood NO GROWTH AFTER 5 DAYS 06/26/19 16:24 Blood Culture - Final Blood NO GROWTH AFTER 5 DAYS A&P Assessment and plan (1) Ureteral obstruction, left: Exact etiology of obstruction is still unclear. Most likely was related to infectious debris. Reviewed the plans with her today. Goal would be to remove the stent and do flexible ureteroscopy after the infection is completely cleared. I would expect sometime next week or the week after to ensure appropriateness of resolution of infection. Status: Acute Code(s): N13.5 - Crossing vessel and stricture of ureter without hydronephrosis (2) Acute pyelonephritis: Clinical improvement overall. White count which spiked immediately postoperatively was probably related to instrumentation in the presence of obstructive pyelonephritis. White count has normalized. Clinical symptoms have improved. I do think she will need continued antibiotics at discharge especially with the foreign body of the stent in place. We will consider suppressive/maintenance until final clearance of the ureter and stent removed Status: Acute Code(s): N10 - Acute pyelonephritis Attestations Medical Necessity Statement*: See attending Time Spent in Patient Care: 16 - 35 minutes Coding Level of Care Code Acute Internal Controls Specialist for [facility] Diagnoses Ureteral obstruction, left N13.5 Acute pyelonephritis N10
[2019-07-02 11:52] VITALS: BP 148/69; PULSE 79; RESP 16; TEMP 36.8; O2SAT 92
[2019-07-02 12:39] LABS: Glucose Point of Care 154 mg/dL (70-110)
--- NOTE | 2019-07-02 13:50 | P.DS_ITS ---
Discharge Providers Date of Admission: 06/24/19 23:13 Date of Discharge: July 02, 2019 Attending Provider at Admission: Saira Tucker MD Attending Provider at Discharge: Xiao Starr MD Primary Care Provider: Abdi Mack Diagnoses at Discharge Discharge Diagnosis (1) Ureteral obstruction, left: Status: Acute Problem details: -Noted to have mild to moderate left hydronephrosis and proximal left hydroureter with left perinephric stranding; increased density in the left ureter distal to the left UPJ with concern for stricture and/or neoplasm -Status post emergent cystoscopy and left ureteral stent placement by Dr. Castillo, POD # 6. Noted to have findings consistent with chronic cystitis in her bladder and purulent urine drained -Has Meyers catheter in place, continue to monitor output; discontinued -UA indicative for infection -urine cx: E.coli, soto-sensitive -blood cultures: E.coli; repeat set prelim negative -on Ceftriaxone per culture sensitivity as no evidence of acute cholecystitis -Appreciate Dr. Castillo's input -Pain control, antiemetics as needed -off IV fluid hydration -Vital signs stable, afebrile x > 48 hrs, continue to monitor vital signs (2) Acute pyelonephritis: Status: Acute Problem details: -UA indicative of infection, CT findings as noted above -urine cx: E.coli, soto-sensitive -blood cultures: E.coli; repeat set prelim negative -Received a dose of ceftriaxone by due to findings consistent with acute cho lecystitis on abdominal ultrasound, is on Zosyn for dual coverage; switch to ceftriaxone -Has had complicated history of recurrent UTIs with cystoscopy revealing findings of chronic cystitis -Noted leukocytosis with a neutrophilic predominance, decreasing, continue to trend WBC -Lactic acid 1.7 (3) Gram-negative bacteremia: Status: Acute Problem details: -Likely secondary to source as noted above -blood cultures: E.coli; repeat set prelim negative -on ceftriaxone (4) Acute kidney injury: Status: Resolved Problem details: -Noted acute renal impairment likely secondary to acute pyelonephritis -Continue to monitor renal function, avoid nephrotoxins, renally dose meds -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; baseline Cr is around 1.5-1.7 though has been as high as 2.0 in the past; renal function improving -off IVF hydration (5) Acute cholecystitis: Status: Resolved Problem details: -Noted findings of cholelithiasis on CT scan, abdominal ultrasound shows acute cholecystitis with CBD dilation of 1.14 cm, no stones -MRCP: mild intrahepatic biliary dilatation, mild GB dilatation with dense large gallstones in GB neck, mild CBD dilatation (3.7 mm); no evidence of choledocholithiasis -LFTs wnl, lipase-45, no mention of RUQ pain on initial admission evaluation -discussed findings with surgery, consult by Dr. Young appreciated; no need for surgical intervention at this time (6) Hypertension: Status: Chronic Problem details: -Vital signs stable, continue to monitor Qualifiers: Hypertension type: essential hypertension Qualified Code(s): I10 - Essential (primary) hypertension Other Information Additional DC diagnoses/information: -hx of uterine cancer s/p hysterectomy -Advanced age -HTN; hold BP meds for now including ACEi, diuretics due to renal impairment -noted bradycardia with episodes of nausea/vomiting; telemetry monitoring, atropine PRN, antiemetics. Then had episodes of tachycardia; likely due to acute infectious process but may need event monitoring on d/c for evaluation of underlying arrhythmia -GERD, on famotidine and maalox PRN -Gastritis with noted episodes of nausea/vomiting; had been on Famotidine, switched to PPI and carafate -IDDM type II; A1c-7.2, continue accucheks, ISS, may have element of gastroparesis, on Reglan Reason for Visit Reason for Visit: Reason For Visit: BACK AND ABD PAIN Hospital Course Hospital Course: Patient was admitted to the medical surgical floor and taken to the OR for emergent cystoscopy, and left ureteral stent placement by Dr. Castillo. She had ready been started on broad-spectrum IV antibiotics. Secondary to noted cholelithiasis on CT of the abdomen and pelvis she had an abdominal ultrasound done for further evaluation and this was reported as acute cholecystitis with some CBD dilatation. Case was discussed with Dr. Young and he recommended MRCP for further evaluation as patient's abdominal exam was benign, lipase and LFTs were normal and she had no overt symptoms of gallbladder disease. She was noted to have cholelithiasis but no findings indicative of cholecystitis or choledocholithiasis. Immediately postop she seemed to be improving but thereafter was noted to have episodes of nausea and vomiting, as well as irregularity on telemetry with initial episodes of significant bradycardia correlating with episodes of nausea and vomiting and episodes of tachycardia. She has otherwise been hemodynamically stable. She would likely benefit from further evaluation for possible arrhythmia with event monitoring which can be arranged as an outpatient. Unfortunately with continued IV fluid hydration patient developed bilateral upper extremity edema, this has significantly improved with discontinuation of IVF. Due to difficulty with peripheral IV access, patient had PICC line placed that is discontinued on discharge. As of today leukocytosis has resolved, she has been consistently afebrile, maintained on room air and able to ambulate independently. Initial set of blood cultures was positive for pansensitive E. coli which correlates with urine cultures growing the same organism. Repeat blood cultures have been negative. During her hospital stay she was covered with IV antibiotics, initially was on Zosyn for dual coverage of and GI infections. Once acute cholecystitis was ruled out she was transitioned to ceftriaxone. She will need continued oral antibiotic therapy pending follow-up with Dr. Castillo to determine timeline for stent removal as well as secondary to her findings on cystoscopy of chronic cystitis. For now I have prescribed a 7-day course of Bactrim she was noted to have some renal impairment while admitted and she is on ARB. 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 She will need to continue to follow-up with her primary care physician. She was noted to have evidence of constipation on imaging and has been prescribed a bowel regimen; she did have several bowel movements during her hospitalization. Overnight nausea and vomiting has resolved, she has been able to tolerate oral intake without difficulty. She would like to go home today. She is advised to seek medical attention immediately should her symptoms worsen or persist after completion of treatment. Of note she did require Meyers catheter placement during her hospital course but this has since been discontinued and she has been able to void independently without difficulty. Discharge Summary: -Patient to follow-up with her primary care physician within 1 week -Patient to follow-up with Dr. Castillo next week Physical Exam Const: COMMON NORMALS: no apparent distress and oriented x3 GENERAL APPEARANCE: cooperative and comfortable; not ill appearing and not diaphoretic NUTRITIONAL APPEARANCE: thin ORIENTATION/CONSCIOUSNESS: Yes awake OTHER: -looks younger than stated age HENMT: COMMON NORMALS: normocephalic, head/scalp atraumatic, hearing grossly normal bilaterally and moist oral mucous membranes HEAD & SCALP: normocephalic and atraumatic Eye: COMMON NORMALS: PERRL, EOMs intact bilaterally and conjunctivae normal CONJUNCTIVA: Yes conjunctivae normal PUPIL: Yes PERRL Neck/C-Spine: COMMON NORMALS: full ROM GENERAL: Yes normal visual inspection and Yes trachea midline Resp: COMMON NORMALS: normal respiratory effort, no retractions, no use of accessory muscles and clear to auscultation bilaterally EFFORT & INSPECTION: Yes able to speak in complete sentences, Yes symmetric chest movement and No tachypneic AUSCULTATION: clear to auscultation bilaterally Cardio: COMMON NORMALS: regular rate, regular rhythm, S1 normal heart sound, S2 normal heart sound and no murmurs RATE: regular rate RHYTHM: regular rhythm HEART SOUNDS: S1 normal and S2 normal GI: COMMON NORMALS: normal to inspection, nondistended, normoactive bowel sounds, soft to palpation and non-tender INSPECTION: Yes central obesity PALPATION: Yes soft, No guarding and No rigid Extremity: COMMON NORMALS: normal to inspection and full ROM; negative for no pedal edema NARRATIVE EXTREMITY EXAM: -Noted pitting edema of bilateral upper extremities (improving) Neuro: COMMON NORMALS: oriented x3, moves all extremities, no focal motor deficits, no sensory deficits noted and gait normal Psych: COMMON NORMALS: mental status grossly normal, thought process normal, cooperative, affect normal and speech normal SPEECH: Yes normal speech THOUGHT PROCESS: normal thought process Skin: COMMON NORMALS: no rashes or lesions noted, no jaundice, no petechiae and no mottling GENERAL SKIN EXAM: no rashes or lesions noted Urinary Catheter Management^: F: Cath Placed During This Visit: yes, but has since been removed by the nurse Urethral Indwelling: Yes Reason for Continuing Indwelling Catheter: Acute Urinary Retention or Obstruction Urinary Catheter Date of Insertion: 06/25/19 Urinary Catheter Time of Insertion: 08:55 Date Urinary Catheter Removed: 06/29/19 Discharge Data Data Completed and Pending: Completed Studies During Hospitalization Category Date Time Status CT abdomen pelvis wo/w [id number] Urgent Cat Scan 06/24/19 18:31 Completed XR chest 1V [id number] Routine Exams 06/26/19 Completed XR chest 1V ирина ble [id number] Routine Exams 06/26/19 08:46 Completed MR MRCP [id number] Angeline howard MRI 06/26/19 08:19 Completed US abdomen comple te* [id number] Urgent Ultrasound 06/24/19 20:49 Completed US pelvic complet e* [id number] Urgent Ultrasound 06/24/19 18:33 Completed Labs from last 24 hours 07/02/19 07/02/19 07/02/19 11:55 06:25 05:21 WBC RBC Hgb Hct MCV MCH MCHC RDW Plt Count MPV Neut % (Auto) Lymph % (Auto) [place] % (Auto) Eos % (Auto) Baso % (Auto) Neut # (Auto) Lymph # (Auto) [place] # (Auto) Eos # (Auto) Baso # (Auto) Nucleated RBC % (a uto) Nucleated RBCs # Sodium 137 Potassium 3.1 L Chloride 105 Carbon Dioxide 20 L Anion Gap 15.1 BUN 8 Creatinine 1.1 H Glucose 146 H POC Glucose 154 136 Calculated Osmolal ity 283 L Calcium 7.6 L 07/02/19 07/01/19 07/01/19 05:21 21:32 17:11 WBC 9.6 RBC 3.34 L Hgb 9.5 L Hct 27.9 L MCV 83.5 MCH 28.4 MCHC 34.1 RDW 15.9 H Plt Count 203 MPV 10.6 H Neut % (Auto) 70.2 Lymph % (Auto) 14.6 [place] % (Auto) 7.4 Eos % (Auto) 4.0 Baso % (Auto) 0.1 Neut # (Auto) 6.7 Lymph # (Auto) 1.4 [place] # (Auto) 0.7 Eos # (Auto) 0.4 Baso # (Auto) 0.0 Nucleated RBC % (a uto) 0 Nucleated RBCs # 0.0 Sodium Potassium Chloride Carbon Dioxide Anion Gap BUN Creatinine Glucose POC Glucose 159 122 Calculated Osmolal ity Calcium Vitals: Last Vital Signs Temp 98.3 F 07/02/19 11:52 Pulse 79 07/02/19 11:52 Resp 16 07/02/19 11:52 BP 148/69 07/02/19 11:52 Pulse Ox 92 07/02/19 11:52 Discharge Plan Discharge Patient Disposition: Home, Self-Care Condition: Stable Prescriptions: New atorvastatin 40 mg Tablet 20 mg PO BEDTIME 30 Days Qty: 30 RF: 0 Miralax 17 gram Powder In Packet 17 g PO DAILY PRN (Reason: Constipation) 30 Days Qty: 30 RF: 0 sucralfate 1 gram Tablet 1 g PO AC&BEDTIME 30 Days Qty: 120 RF: 0 sennosides-docusate sodium 8.6-50 mg Tablet 1 tab PO BID 30 Days Qty: 60 RF: 0 pantoprazole 40 mg tablet,delayed release (DR/EC) 40 mg PO DAILY 30 Days Qty: 30 RF: 0 Bactrim DS 800-160 mg tablet 1 tab PO BID 7 Days Qty: 14 RF: 0 Zofran 4 mg tablet 4 mg PO Q8H PRN (Reason: nausea and vomiting) 5 Days Qty: 15 RF: 0 Continued Hyzaar 100-25 mg Tablet 1 tab PO DAILY RF: 0 ascorbic acid (vitamin C) [Vitamin C] 500 mg Tablet 500 mg PO DAILY RF: 0 nifedipine 60 mg Tablet Extended Release 60 mg PO DAILY RF: 0 Lantus Solostar U-100 Insulin 100 unit/mL (3 mL) insulin pen See Rx Instructions .ROUTE .COMPLEX RF: 0 Discontinued nitrofurantoin macrocrystal 100 mg Capsule 100 mg PO Q12H RF: 0 lisinopril 10 mg Tablet 10 mg PO BEDTIME RF: 0 Discharge Orders: Discharge Order (Routine); Ordered 07/02/19 Ordered By: Xiao Starr Referrals: Urban Heredia MD [Physician] - 2 weeks (Follow up for cholelithiasis. ) Sven Castillo MD [Physician] - 1 week (Post hospital discharge follow up s/p R ureteral stent placement. Discharged on bactrim) Abdi Mack MD [Primary Care Provider] - 4-7 days (Post hospital discharge follow up. ) Discharge Diet: Regular Discharge Activity: Resume usual activity Activity Restrictions/Additional Instructions: -Please keep both arms elevated as much as possible to decrease swelling -Please seek medical attention immediately if symptoms worsen Discharge Attestations Time Spent in Discharge Care*: greater than 30 min Specific Discharge Activities: Specific discharge activities: educating patient, educating and/or supporting family/caregiver, discussing with pcp/other providers, discussing with insurance case manager/social workers/dc planners, documenting/other paperwork and evaluating patient/reviewing data Status at Discharge: Cognitive status at discharge: cognitively intact , Behavioral status at discharge: cooperative , Functional status at discharge: uses cane/walker Overall status at discharge: patient is back to baseline Quality Metrics Clinical Quality Measures During this hospital stay, did patient experience: None Coding Level of Care Code Acute Chart Calculator for Chg Fwd Diagnoses Ureteral obstruction, left N13.5 Acute pyelonephritis N10 Gram-negative bacteremia R78.81 Acute kidney injury N17.9 Acute cholecystitis K81.0 Hypertension I10 Hypertension type: essential hypertension
[2019-07-02 14:54] VITALS: BP 148/69; PULSE 79; RESP 16; TEMP 36.8; O2SAT 92
== END 2019-07-02 15:40 | disposition home or self-care (01) | DRG 660 ==
LOC: ER 18:20 → MEDSURG 23:41
PROVIDERS: Hospitalist; Urology; Admitting Provider Student in an Organized Health Care Education/Training Program; Emergency Provider Emergency Medicine; Family Provider Family Medicine; PCP Family Medicine; Visit Provider Family Medicine
PROC: 0TJB8ZZ Inspection of Bladder, Via Natural or Artificial Opening Endoscopic (ICD-10-PCS; CPT 52000; principal; 2019-06-25 08:15)
PROC: 0TJB8ZZ Inspection of Bladder, Via Natural or Artificial Opening Endoscopic (ICD-10-PCS; CPT 50605; 2019-06-25 08:15)
DX: N13.5 Crossing vessel and stricture of ureter without hydronephrosis (principal); N10 Acute pyelonephritis; R78.81 Bacteremia; N17.9 Acute kidney failure, unspecified; K81.0 Acute cholecystitis; I10 Essential (primary) hypertension; E11.9 Type 2 diabetes mellitus without complications; K21.9 Gastro-esophageal reflux disease without esophagitis; K29.70 Gastritis, unspecified, without bleeding; K83.8 Other specified diseases of biliary tract; Z87.891 Personal history of nicotine dependence; Z79.83 Long term (current) use of bisphosphonates
CPT/HCPCS: 12345; 36415; 36416; 36569; 36592; 71045; 74178; 74181; 76000; 76700; 76856; 80048; 80053; 81001; 82962; 83036; 83605; 83690; 83735; 85007; 85025; 87040; 87077; 87086; 87186; 87205; 93005; 96372; 96374; 96375; 99283; C2625; C9113; J0131; J0696; J1815; J2001; J2270; J2405; J2543; J2704; J2765; J3480; J3490; J7030; Q9967

== ENCOUNTER 2019-08-01 06:04 | Day surgery (SDC) | payer MEDICARE, OTHER, SELFPAY ==
[2019-07-31 11:10] VITALS: BMI 25.7
[2019-08-01] VITALS (8 sets, daily range): BP systolic 130–155; BP diastolic 66–82; PULSE 62–110; RESP 16–22; TEMP 36.4–36.7; O2SAT 92–96
--- NOTE | 2019-08-01 | SCC_ITS ---
Procedure Done: 1. Cystoscopy with removal of left ureteral stent 2. Left retrograde ureteropyelogram 3. Left flexible ureteral renoscopy 34.1 seconds of fluoroscopic guidance, for a cumulative dose of 5.05 mGy, was provided to Dr. Castillo by the radiology department. C-arm images of the abdomen were saved for the patient's permanent record. [facility]
--- NOTE | 2019-08-01 05:43 | SC_ITS ---
WS: [id number] C-ARM RADIOGRAPHS ABDOMEN; 2 IMAGES HISTORY: For flexible ureteroscopy COMPARISON: None available. Retrograde LEFT ureteroscopy. SC/C-arm FL for Urology IMPRESSION: Intraoperative imaging for retrograde ureteroscopy.
--- NOTE | 2019-08-01 06:18 | SUR.PREOP ---
RASH ON FOREHEAD, WHICH IS A CHRONIC CONDITION ACCORDING TO PATIENT.
--- NOTE | 2019-08-01 06:23 | ECG_ITS ---
Measurements Intervals [place] Rate: 83 P: 57 [place]: 170 QRS: -8 QRSD: 96 T: 73 QT: 402 QTc: 475 SINUS RHYTHM WITH OCCASIONAL SUPRAVENTRICULAR PREMATURE COMPLEXES NONSPECIFIC ST & T-WAVE ABNORMALITY Compared to ECG 06/26/2019 20:54:35 No significant changes Electronically Signed On 08-01-2019 18:13:27 CDT by Stacie Rojo M.D. [id number]
[2019-08-01] MEDS: sodium chloride 0.9% 1,000 ML 30 ML IV (06:32)
[2019-08-01 06:33] LABS: Glucose Point of Care 142 mg/dL (70-110)
--- NOTE | 2019-08-01 06:36 | PM.OPSURHP ---
Providers/Chief Complaint Admitting Physician: Jonathan Primary Care Provider: Abdi Mack Chief Complaint: Recent obstructive pyelonephritis with emergency stenting. Due for stent removal and ureteroscopy. History of Present Illness Melissa Fermin is a 84 year old female well-known to me for recent diagnosis (06/25/2019) of obstructive pyelonephritis with what was felt to be more likely infectious sediment rather than stone as the obstructing etiology. Underwent emergency stenting. 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 Had a history of recurrent UTIs. She recovered well and is back now for stent removal, flexible ureteroscopy, treatment of any residual and obstructive source. Denies fever or chills. Feels much better than she did around the time of her previous surgery. Review of Systems Const: Denies: fever, chills or body aches Eyes: Denies: change in vision or blurry vision ENMT: Denies: throat pain or painful swallowing Card: Denies: chest pain, palpitations or irregular heart rhythm Resp: Denies: shortness of breath, productive cough, non-productive cough or wheezing GI: Denies: abdominal pain, nausea or vomiting : Reports: urinary frequency and urinary urgency; Denies: painful urination Musc: Reports: joint pain; Denies: joint swelling or redness Skin/Breast: Denies: rash or new lesion Neuro: Denies: headache, confusion or seizure-like activity Psych: Denies: anxiety or depression Endo: Denies: flushing Nba/Lymph: Denies: easy bruising, easy bleeding or enlarged lymph nodes All/Imm: Denies: hives or throat swelling Medications/Allergies Home Medications Medication Instructions Recorded Confirmed Last Taken Type Lantus Solostar U-100 Insulin See Rx Instructions .ROUTE .COMPLEX 06/25/19 08/01/19 07/31/19 History losartan-hydrochlorothiazide 1 tab PO DAILY 06/25/19 08/01/19 07/31/19 04:30 History [Hyzaar] nifedipine 60 mg PO DAILY 06/25/19 08/01/19 08/01/19 04:30 History famotidine [Pepcid] 20 mg PO DAILY 07/31/19 08/01/19 07/31/19 History Allergies Allergy/AdvReac Type Severity Reaction Status Date / Time No Known Allergies Allergy Verified 07/10/19 10:08 PFSH PFSH: Social History Smoking and tobacco status: former smoker Alcohol intake: never Adopted: No Caregiver/support person: No Lives independently: No Household members: spouse Marital status: Current occupational status: retired History of recent travel: No Current gender identity: Female Vital Signs Vitals Signs: Last Vital Signs Temp 98.1 F 08/01/19 06:15 Pulse 62 08/01/19 06:15 Resp 18 08/01/19 06:15 BP 155/82 08/01/19 06:15 Pulse Ox 96 08/01/19 06:15 Weight: Weight last 48 hrs Weight 132 lb Physical Exam Const: COMMON NORMALS: no apparent distress, alert and well nourished GENERAL APPEARANCE: well kempt and well developed ORIENTATION/CONSCIOUSNESS: not confused HENMT: COMMON NORMALS: normocephalic and head/scalp atraumatic Eye: COMMON NORMALS: conjunctivae normal and no scleral icterus Neck/C-Spine: COMMON NORMALS: full ROM GENERAL: Yes normal visual inspection Lymph: LYMPHATIC: no lymphadenopathy noted and no lymphedema noted Resp: COMMON NORMALS: normal respiratory effort EFFORT & INSPECTION: No labored and No actively coughing AUSCULTATION: clear to auscultation bilaterally Cardio: COMMON NORMALS: regular rate, regular rhythm and no murmurs RATE: regular rate RHYTHM: regular rhythm GI: OTHER: Soft. Does have some right upper quadrant tenderness but not severe. No rebound. No palpable masses : OTHER: Bladder nontender nondistended. No palpable masses. Extremity: COMMON NORMALS: no clubbing, cyanosis or edema Neuro: COMMON NORMALS: no focal motor deficits SENSORIUM/ORIENTATION: Yes alert Psych: COMMON NORMALS: mental status grossly normal APPEARANCE: Yes grossly normal and Yes well kempt ATTITUDE: Yes calm and Yes engaged Skin: COMMON NORMALS: no rashes or lesions noted and no jaundice GENERAL SKIN EXAM: no rashes or lesions noted, turgor normal and no mottling A&P Assessment and plan (1) Ureteral obstruction, left: Left proximal ureteral obstruction associate with obstructive pyelonephritis on 06/25/2019 requiring emergency stenting. Complicated by chronic cystitis as a source of the infection. Has recovered and is due for flexible ureteroscopy to evaluate for residual obstructive source. Status: Acute (2) Cystitis cystica: Chronic urinary tract infections discovered with episode of obstructive pyelonephritis June 2019. On antibiotic therapy Status: Acute Coding Level of Care Code Acute Wellness Nurse Rn for [facility] Fwd Exam Comprehensive Diagnoses Ureteral obstruction, left N13.5 Cystitis cystica N30.80
--- NOTE | 2019-08-01 06:42 | P.ANESASSM_ITS ---
Pre-Anesthetic Assessment Pre-Anesthetic Assessment: Height/Weight: Height 1.52 m Weight 59.874 kg Temp Pulse Resp BP Pulse Ox 98.1 F 62 18 155/82 96 08/01/19 06:15 08/01/19 06:15 08/01/19 06:15 08/01/19 06:15 08/01/19 06:15 Preop Diagnosis: Obstructive pyelonephritis status post emergency stenting Proposed Procedure: Operation Date: 08/01/19 07:00 Proposed Procedures p CYSTOSCOPY, REMOVAL URETERAL STENT, RETROGRADE, FLEXIBLE URETEROSCOPY, POSSIBLE STENT 78629 MODIFIER 26 [id number]/[id number] N30.20(Not Applicable) - Sven Castillo MD s Ureteral Stent Removal(Not Applicable) - Sven Castillo MD s Flexible Ureteroscopy(Not Applicable) - vSen Castillo MD s Possible Ureteral Stent Placement(Not Applicable) - Sven Castillo MD Familial anesthetic complications: None Was Beta Concetta taken within 24 hours: N/A Last intake: Intake Last Liquid Date 07/31/19 Last Liquid Time 17:00 Last Solid Date 07/31/19 Last Solid Time 17:00 Social: Social History: No alcohol Comment: Former smoker Exam: Pre-Anes Outpt Exam: alert, oriented x 3, clear to auscultation bilaterally and regular rate & rhythm Additional Exam Findings (including area of procedure): PVCs on EKG Airway: Cervical ROM: WNL MP: 1 Dentition: False Pulmonary: Pulmonary: None reported CV/HEM: CV/HEM: HTN : Comments: hx of pyelonephritis and LION Hepatic: Hepatic: None reported GI: GI: GERD Metabolic: Metabolic: DM Musc/skel: Musc/skel: Lower Back Pain (Knot on lower back - that gives me problems everyone once in [facility]) Neuropsych: Neuropsych: None reported Anesthetic Plan: ASA status: 2 Anesthesia: General Risk of > 500 ml blood loss (7ml/kg in children): No Meds/Allergies Current Medications: Current Medications Generic Name Dose Route Start Last Admin Trade Name Freq PRN Reason Stop Dose Admin Sodium Chloride 1,000 mls @ 30 ml s/hr 08/01/19 05:45 08/01/19 06:32 Sodium Chloride 0.9% IV 08/02/19 05:44 30 mls/hr .Q24H KURT Administration PFSH Anesthesia PFSH: Social History Smoking and tobacco status: former smoker Alcohol intake: never Adopted: No Caregiver/support person: No Lives independently: No Household members: spouse Marital status: Current occupational status: retired History of recent travel: No Current gender identity: Female Data Anesthesia Other Labs: Laboratory Results - last 48 hr 08/01/19 06:28 POC Glucose 142 Cardiac Studies: No Data to Display
[2019-08-01 06:48] LABS: Blood Urea Nitrogen 15 mg/dL (8-23); Calcium 10.7 mg/dL (8.5-10.5); Carbon Dioxide 22 mmol/L (22-29); Chloride 97 mmol/L (98-107); Glucose 156 mg/dL (65-115); Osmolality Calculated 279 mOsm/kg (285-295); Sodium 135 mmol/L (136-145)
[2019-08-01] MEDS: levofloxacin-dextrose 5 % 500 MG/100 ML PREMIX 100 MG IV (06:55)
[2019-08-01 07:06] LABS: Anion Gap 20.5 (5-19); Potassium 4.5 mmol/L (3.5-5.1)
[2019-08-01] MEDS: iohexol 300 mg/mL 50 mL Btl (OR ONLY) XX (07:18)
--- NOTE | 2019-08-01 07:31 | P.OP_ITS ---
Operative Report Date of procedure: August 01, 2019 Pre-op Diagnosis: Obstructive pyelonephritis status post emergency stenting Post-op Diagnosis: Same, no evidence of residual intraureteral obstructing lesion stone or set up Procedure Done: 1. Cystoscopy with removal of left ureteral stent 2. Left retrograde ureteropyelogram 3. Left flexible ureteral renoscopy Implants: None Specimens removed/disposition: Stent Pathology: none sent Surgeon: Jonathan Anesthesia: General Estimated blood loss: Minimal Urine output: Not measured Complications: None Findings: 1. Stent was removed without difficulty. No encrustation 2. Normal LEFT retrograde ureteropyelogram, ureteroscopy and renoscopy. 3. Resolved chronic cystitis Condition: stable Disposition: PACU Brief History: Melissa is a very pleasant 84-year-old white female with a history of obstructive pyelonephritis requiring emergency stenting and June. Back now for stent removal and assessment of the ureter for any residual obstructive lesions stones etc. Procedure: After routine preoperative evaluation examination and obtaining of informed consent she was taken to the operating suite on 08/01/2019 where general anesthesia was administered without difficulty after appropriate timeout was performed, SCDs confirmed to be functioning, preoperative antibiotics administered, beta-rhonda protocol confirmed. Prepped and draped in the usual sterile fashion in dorsolithotomy position pain careful attention to avoiding pressure points. 21 Vietnamese cystoscope with 30 degree lens was introduced into urethral meatus and advanced into the bladder under videoscopy. Bladder showed resolution of chronic cystitis changes. Stent in the expected position. Easily removed with grasping forceps under fluoroscopic guidance. Left retrograde ureteropyelogram was performed showing: Normal course and caliber of the ureter, no persistence of dilation of the upper urinary tract. Flexible guidewire was easily passed up the left ureter and curling in the upper pole calyx. Flexible ureteroscope was then advanced over the guidewire up into the kidney without difficulty. Wire was removed all calyces inspected along with the renal pelvis. There were no gross pathology findings. No stones or residual sediment . The scope was withdrawn slowly with close inspection of the ureter with withdrawal. No abnormal findings were identified. The ureter was nicely dilated as expected from passive dilation with indwelling ureteral stent. Final inspection of the bladder showed no residual findings. The bladder was drained procedure completed. Tolerated the procedure well without complications and was awakened in the operating room and returned to the recovery in stable condition. PLANS: 1. Discharge from outpatient surgery today 2. Follow-up in 6 months with [facility].
[2019-08-01] MEDS: ondansetron 2 mg/ML SDV 2 mL 4 MG IVP (07:55)
--- NOTE | 2019-08-01 08:11 | SUR.PHASEI ---
0805 pt to ops awake alert talkative coughing off and on, requests coffee.
== END 2019-08-01 08:51 | disposition home or self-care (01) ==
PROVIDERS: Anesthesiology; Family Provider Family Medicine; PCP Family Medicine; Visit Provider Urology
PROC: 0TJB8ZZ Inspection of Bladder, Via Natural or Artificial Opening Endoscopic (ICD-10-PCS; CPT 52000; principal; 2019-08-01 07:00)
PROC: (CPT 52310; 2019-08-01 07:00)
PROC: 0TJ98ZZ Inspection of Ureter, Via Natural or Artificial Opening Endoscopic (ICD-10-PCS; CPT 52351; 2019-08-01 07:00)
DX: N13.5 Crossing vessel and stricture of ureter without hydronephrosis (principal); N30.80 Other cystitis without hematuria; I10 Essential (primary) hypertension; K21.9 Gastro-esophageal reflux disease without esophagitis; E11.9 Type 2 diabetes mellitus without complications; Z87.891 Personal history of nicotine dependence; Z79.4 Long term (current) use of insulin
CPT/HCPCS: 52352; 12345; 36415; 36416; 76000; 80048; 82962; 93005; J1956; J2405; J3010; J7030

== ENCOUNTER 2019-10-24 01:20 | Inpatient (IN) | payer MEDICARE, OTHER, SELFPAY ==
[2019-10-24] VITALS (17 sets, daily range): BP systolic 90–128; BP diastolic 46–67; PULSE 72–152; RESP 16–29; TEMP 36.8–38; O2SAT 91–99; BMI 23.6; BMI 23.1
--- NOTE | 2019-10-24 01:50 | W.ED.WEAKNES ---
HPI - Weakness General: Chief complaint: Weakness Stated complaint: kidney infection Time Seen by Provider: 10/24/19 01:45 Source: patient Mode of arrival: ambulatory Limitations: no limitations History of Present Illness: HPI Narrative: 84-year-old female who states she has been feeling quite weak over the last 2 to 3 days. She has had difficulty walking due to weakness. Patient had a urinary tract infection months ago and states this is very similar. Patient is tachycardic here and slightly hypotensive. She denies any abdominal pain or known fever. MD Complaint: generalized weakness Associated symptoms: Reports dysuria; Denies chest pain, chills, easy bruising, fever(s), nausea or vomiting Review of Systems Const: Denies: fever(s), chills, body aches or change in appetite Eyes: Denies: blurry vision or eye discomfort ENMT: Denies: throat pain or dental pain Card: Denies: chest pain Resp: Denies: dyspnea GI: Denies: abdominal pain, nausea, vomiting or diarrhea : Reports: dysuria Musc: Denies: neck pain or back pain Skin/Breast: Denies: rash Neuro: Reports: weakness in extremities Psych: Denies: depression Nba/Lymph: Denies: easy bruising All/Imm: Denies: urticaria PFSH ED PFSH: Medical History Acute kidney injury -Noted acute renal impairment likely secondary to acute pyelonephritis -Continue to monitor renal function, avoid nephrotoxins, renally dose meds -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; baseline Cr is around 1.5-1.7 though has been as high as 2.0 in the past; renal function improving -off IVF hydration Diabetes GERD (gastroesophageal reflux disease) Hypertension -Vital signs stable, continue to monitor Osteoporosis Uterine cancer Surgical History H/O arthroplasty H/O arthroscopy Social History Smoking and tobacco status: former smoker Alcohol intake: never Adopted: No Caregiver/support person: No Lives independently: No Household members: spouse Marital status: Current occupational status: retired History of recent travel: No Current gender identity: Female Physical Exam Const: COMMON NORMALS: patient oriented x3 GENERAL APPEARANCE: ill appearing and frail appearing HENMT: COMMON NORMALS: normocephalic and atraumatic HEAD & SCALP: normocephalic and atraumatic Eye: COMMON NORMALS: Equal, round and reactive pupils present and EOMs intact bilaterally PUPIL: Yes Equal, round and reactive pupils present Neck/C-Spine: COMMON NORMALS: full ROM and supple Chest: COMMONS NORMALS: normal inspection of the chest and normal palpation of entire chest wall Resp: COMMON NORMALS: normal respiratory effort, No retractions, No use of accessory muscles and clear to auscultation bilaterally AUSCULTATION: clear to auscultation bilaterally Cardio: COMMON NORMALS: regular rhythm and No murmurs present (Cardio) RATE: tachycardic RHYTHM: regular rhythm GI: COMMON NORMALS: Normal to inspection, nondistended, normoactive bowel sounds present, Soft to palpation, non-tender and no masses PALPATION: Yes Soft to palpation Extremity: COMMON NORMALS: normal to inspection and full ROM Neuro: COMMON NORMALS: patient oriented x3, moves all extremities and no focal motor deficits Psych: COMMON NORMALS: mental status grossly normal, Normal thought process present and cooperative THOUGHT PROCESS: Normal thought process present Skin: COMMON NORMALS: no rashes or lesions noted and no wounds GENERAL SKIN EXAM: no rashes or lesions noted Course Vital Signs: Vital signs: Vital Signs Temperature 98.2 F 10/24/19 01:44 Pulse Rate 72 10/24/19 03:44 Respiratory Rate 22 H 10/24/19 03:44 Blood Pressure 96/48 10/24/19 03:44 Pulse Oximetry 97 10/24/19 03:44 MDM - Weakness MDM Narrative: Medical decision making narrative: Patient presents here with generalized weakness likely from acute dehydration with acute kidney injury and hyponatremia. Patient was in atrial flutter with heart rate of 150s but blood heart rate is now 70 and is converted. Blood pressure improved as well. I spoke to hospitalist and will admit to ICU. Lab Data: Labs: Lab Results 10/24/19 10/24/19 10/24/19 Range/Units 02:03 02:03 02:03 WBC 6.8 (4.0-10.0) 10^3/ uL RBC 3.96 L (4.1-5.3) 10^6/u L Hgb 10.6 L (11.5-15.3) g/dL Hct 30.6 L (37.0-47.0) % MCV 77.3 L (81-99) fL MCH 26.8 L (28.0-34.0) pg MCHC 34.6 (30.0-36.0) g/dL RDW 16.3 H (12.1-15.1) % Plt Count 89 L (130-400) 10^3/c mm MPV Not Reportable Neut % (Auto) 60.1 % Lymph % (Auto) 14.5 % [place] % (Auto) 16.9 % Eos % (Auto) 0.3 % Baso % (Auto) 0.1 % Neut # (Auto) 4.09 (1.8-7.7) 10^3/u L Lymph # (Auto) 1.0 (0.8-4.8) 10^3/u L Lancaster # (Auto) 1.2 H (0.2-0.9) 10^3/u L Eos # (Auto) 0.0 (0.0-0.8) 10^3/u L Baso # (Auto) 0.0 (0.0-0.1) 10^3/u L Nucleated RBC % (a uto) 0 % Nucleated RBCs # 0.0 /100WBC PT 13.80 H (10.5-13.3) SECO NDS INR 1.03 (0.8-1.2) Sodium 120 L (136-145) mmol/L Potassium 4.1 (3.5-5.1) mmol/L Chloride 86 L (98-107) mmol/L Carbon Dioxide 19 L (22-29) mmol/L Anion Gap 19.1 H (5-19) BUN 70 H (8-23) mg/dL Creatinine 2.8 H (0.5-0.9) mg/dL Glucose 367 H (65-115) mg/dL Calculated Osmolal ity 264 L (285-295) mOsm/k g Lactate (0.5-2.2) mmol/L Calcium 7.7 L (8.5-10.5) mg/dL Total Bilirubin 0.6 (0.15-1.2) mg/dL AST 16 (0-32) U/L ALT 8 (0-33) U/L Alkaline Phosphata se 83 (35-105) IU/L Total Protein 7.7 (6.6-8.7) g/dL Albumin 3.0 L (3.5-5.2) g/dL Globulin 4.7 H (1.3-4.6) g/dL Urine Color (Yellow) Urine Appearance (CLEAR) Urine pH (5-7) Ur Specific Gravit y (1.005-1.030) Urine Protein (Negative) Urine Glucose (UA) (Normal) Urine Ketones (Negative) Urine Blood (Negative) Urine Nitrate (Negative) Urine Bilirubin (NEGATIVE) Urine Urobilinogen (Negative) mg/dL Ur Leukocyte Talia ase (Negative) 10/24/19 10/24/19 Range/Units 02:03 03:37 WBC (4.0-10.0) 10^3/ uL RBC (4.1-5.3) 10^6/u L Hgb (11.5-15.3) g/dL Hct (37.0-47.0) % MCV (81-99) fL MCH (28.0-34.0) pg MCHC (30.0-36.0) g/dL RDW (12.1-15.1) % Plt Count (130-400) 10^3/c mm MPV Neut % (Auto) % Lymph % (Auto) % Lancaster % (Auto) % Eos % (Auto) % Baso % (Auto) % Neut # (Auto) (1.8-7.7) 10^3/u L Lymph # (Auto) (0.8-4.8) 10^3/u L Lancaster # (Auto) (0.2-0.9) 10^3/u L Eos # (Auto) (0.0-0.8) 10^3/u L Baso # (Auto) (0.0-0.1) 10^3/u L Nucleated RBC % (a uto) % Nucleated RBCs # /100WBC PT (10.5-13.3) SECO NDS INR (0.8-1.2) Sodium (136-145) mmol/L Potassium (3.5-5.1) mmol/L Chloride (98-107) mmol/L Carbon Dioxide (22-29) mmol/L Anion Gap (5-19) BUN (8-23) mg/dL Creatinine (0.5-0.9) mg/dL Glucose (65-115) mg/dL Calculated Osmolal ity (285-295) mOsm/k g Lactate 1.4 (0.5-2.2) mmol/L Calcium (8.5-10.5) mg/dL Total Bilirubin (0.15-1.2) mg/dL AST (0-32) U/L ALT (0-33) U/L Alkaline Phosphata se (35-105) IU/L Total Protein (6.6-8.7) g/dL Albumin (3.5-5.2) g/dL Globulin (1.3-4.6) g/dL Urine Color Yellow (Yellow) Urine Appearance Clear (CLEAR) Urine pH 5 (5-7) Ur Specific Gravit y 1.020 (1.005-1.030) Urine Protein Neg (Negative) Urine Glucose (UA) Norm (Normal) Urine Ketones Negative (Negative) Urine Blood Neg (Negative) Urine Nitrate Negative (Negative) Urine Bilirubin Neg (NEGATIVE) Urine Urobilinogen Norm (Negative) mg/dL Ur Leukocyte Talia ase Negative (Negative) EKG Data^: EKG 1: Attestation: I personally reviewed and interpreted this EKG as follows: EKG interpretation date: 10/24/19 EKG interpretation time: 02:00 Interpretation: atrial flutter hr [address] or t wave abnormalities qrs 128 qtc 398 EKG 2: Attestation: I personally reviewed and interpreted this EKG as follows: EKG interpretation date: 10/24/19 EKG interpretation time: 03:11 Interpretation: nsr hr [address] or t wave abnormalities qrs 97 qtc 404 Critical Care Time Critical Care Time: Critical Care Time: Yes Total Critical Care Time: 35 Attestation: This case had a high probability of a clinically significant, sudden, or life threatening deterioration of this patient's condition which required my full and direct attention, intervention and personal management. Discharge Plan Discharge Patient Disposition: Admitted As Inpatient Clinical Impression: Hyponatremia, Weakness Atrial flutter Qualifiers: Atrial flutter type: unspecified Qualified Code(s): I48.92 - Unspecified atrial flutter Condition: Stable Referrals: Abdi Mack MD [Primary Care Provider] - Coding Level of Care Code ED Bronze Chaser for Chg Fwd Exam Comprehensive
[2019-10-24] MEDS: sodium chloride 0.9% 1,000 ML 999 ML IV (02:06)
[2019-10-24 02:18] LABS: Basophils % 0.1 %; Eosinophils % 0.3 %; Hematocrit 30.6 % (37.0-47.0); Hemoglobin 10.6 g/dL (11.5-15.3); Lymphocytes % 14.5 %; Mean Corpuscular HGB Conc 34.6 g/dL (30.0-36.0); Mean Corpuscular Hemoglobin 26.8 pg (28.0-34.0); Mean Corpuscular Volume 77.3 fL (81-99); Monocytes # 1.2 10^3/uL (0.2-0.9); Monocytes % 16.9 %; Neutrophils # 4.09 10^3/uL (1.8-7.7); Neutrophils % 60.1 %; Nucleated Red Blood Cells % 0 %; Platelet Count 89 10^3/cmm (130-400); Red Blood Count 3.96 10^6/uL (4.1-5.3); Red Cell Distribution Width 16.3 % (12.1-15.1); White Blood Count 6.8 10^3/uL (4.0-10.0)
[2019-10-24 02:25] LABS: INR 1.03 (0.8-1.2)
[2019-10-24 02:31] LABS: Alanine Aminotransferase 8 U/L (0-33); Alkaline Phosphatase 83 IU/L (35-105); Anion Gap 19.1 (5-19); Aspartate Amino Transferase 16 U/L (0-32); Blood Urea Nitrogen 70 mg/dL (8-23); Calcium 7.7 mg/dL (8.5-10.5); Carbon Dioxide 19 mmol/L (22-29); Chloride 86 mmol/L (98-107); Globulin 4.7 g/dL (1.3-4.6); Glucose 367 mg/dL (65-115); Lactate (Lactic Acid level) 1.4 mmol/L (0.5-2.2); Osmolality Calculated 264 mOsm/kg (285-295); Potassium 4.1 mmol/L (3.5-5.1); Sodium 120 mmol/L (136-145); Total Bilirubin 0.6 mg/dL (0.15-1.2); Total Protein 7.7 g/dL (6.6-8.7)
[2019-10-24 02:41] LABS: Slide Review Slide Review Perform
--- NOTE | 2019-10-24 02:54 | ECG_ITS ---
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 Measurements Intervals Barton Rate: 74 P: 31 DC: 182 QRS: 0 QRSD: 97 T: 62 QT: 377 QTc: 419 Interpretive Statements SINUS RHYTHM NONSPECIFIC T-WAVE ABNORMALITY Compared to ECG 08/01/2019 06:39:35 No significant changes Electronically Signed On 10-24-2019 16:26:00 CDT by Aguilar Farris M.D. [id number]
--- NOTE | 2019-10-24 03:08 | PC.NURSE ---
PT HAS CONVERTED TO RSR. PT RESTING COMFORTABLY IN BED.
--- NOTE | 2019-10-24 03:10 | XRR_ITS ---
PROCEDURE INFORMATION: Exam: XR Chest, 1 View Exam date and time: 10/24/2019 3:54 AM Age: 84 years old Clinical indication: Other: Weakness. Dysuria; Prior surgery; Surgery date: 6+ months; Surgery type: RT shoulder replacement; Patient HX: Weakness 2-3 days. Dysuria. Tachycardic. Previous UTI months ago-feels similar TECHNIQUE: Imaging protocol: XR of the chest Views: 1 view. COMPARISON: CR XR chest 1V [id number] 06/26/2019 10:40 AM FINDINGS: Lungs: Lungs are well aerated without a focal area of consolidation. Pleural space: Unremarkable. No pleural effusion. No pneumothorax. Heart/Mediastinum: Numerous calcified lymph nodes Bones/joints: Prior shoulder arthroplasty on the right XR/XR chest 1V portable [id number] IMPRESSION: Lungs are well aerated without a focal area of consolidation.
--- NOTE | 2019-10-24 03:11 | PC.NURSE ---
VERBAL ORDER FROM DR BRUCE TO LET 1ST BAG OF NS BOLUS COMPLETE AND THEN DON'T HANG THE 2ND BAG A BOLUS. RUN 2ND BAG AT 150ML/HR.
[2019-10-24 03:52] LABS: Add Urine Microscopic? NO
[2019-10-24 04:02] LABS: Bilirubin Urine Neg (NEGATIVE); Blood Urine Neg (Negative); Glucose Urine UA Norm (Normal); Ketones Urine Negative (Negative); Leukocyte Esterase Urine Negative (Negative); Nitrate Urine Negative (Negative); Protein Urine Neg (Negative); Urine Appearance Clear (CLEAR); Urine Color Yellow (Yellow); Urobilinogen Urine Norm (Negative); pH Urine 5 (5-7)
--- NOTE | 2019-10-24 04:06 | P.HP_ITS ---
Providers/Chief Complaint Primary Care Provider: Abdi Mack Chief Complaint: kidney infection History of Present Illness Melissa Fermin is a 84 year old female who carries history of type 2 diabetes, hypertension, recurrent UTIs, obstructive pyelonephritis status post stent removal by Dr. Castillo coming in today with chief complaint generalized weakness and lethargy. Patient is stating that for last couple of months she has been feeling more tired and lethargic, it got worse on Wednesday when she started experiencing nausea and vomiting. She is compliant with her medications which include losartan and hydrochlorothiazide, recently took stool softeners for constipation. is at the bedside who is endorsing poor p.o. intake. She eats biscuits with peanut butter as her dinner and 1 egg in the morning. She denies history of hypo-thyroidism or hyponatremia in the past. Her daily activities has been very limited because of increased weakness, has noticed short attention span, confusion and patient is endorsing chills/shakes for last 3 to 4 days. Patient is not sure if she spiked fever at home, currently she denies any signs of UTI. Diagnosis in the ER revealed hyponatremia sodium 120, corrected sodium 125, hyperglycemia, on arrival she had narrow complex tachycardia heart rate 150 which improved with Cardizem 10 mg and 1 L normal saline bolus currently heart rate is in 70s, normal sinus rhythm, no neurological deficit, patient is able to give me above-mentioned details. Urinalysis unremarkable, LION and thrombocytopenia without active bleeding Review of Systems Const: Reports: chills, body aches, change in appetite, change in weight, fatigue and malaise; Denies: fever(s) or daytime sleepiness Eyes: Denies: change in vision ENMT: Denies: throat pain Card: Reports: dyspnea on exertion; Denies: chest pain, swelling of feet/ankles, syncope or orthopnea Resp: Denies: dyspnea GI: Reports: abdominal pain, nausea, vomiting and constipation; Denies: diarrhea : Denies: flank pain, dysuria, urinary urgency or urinary hesitancy Musc: Reports: limited range of motion and muscle weakness Skin/Breast: Reports: rash and lesions Neuro: Reports: weakness in extremities and difficulty walking; Denies: headache(s), lack of coordination or dizziness Psych: Reports: memory loss and difficulty concentrating Endo: Denies: polyuria Nba/Lymph: Denies: easy bruising All/Imm: Denies: urticaria Medications/Allergies Home Medications Medication Instructions Recorded Confirmed Last Taken Type Lantus Solostar U-100 Insulin See Rx Instructions .ROUTE .COMPLEX 06/25/19 08/01/19 07/31/19 History losartan-hydrochlorothiazide 1 tab PO DAILY 06/25/19 08/01/19 07/31/19 04:30 History [Hyzaar] nifedipine 60 mg PO DAILY 06/25/19 08/01/19 08/01/19 04:30 History famotidine [Pepcid] 20 mg PO DAILY 07/31/19 08/01/19 07/31/19 History Allergies Allergy/AdvReac Type Severity Reaction Status Date / Time No Known Allergies Allergy Verified 10/24/19 02:19 PFSH Acute PFSH: Medical History Diabetes GERD (gastroesophageal reflux disease) Hypertension Osteoporosis Pyelonephritis Obstructive pyelonephritis requiring ureteral stent which was removed Recurrent UTI Uterine cancer Surgical History H/O arthroplasty H/O arthroscopy H/O cystoscopy H/O: hysterectomy History of removal of ureteral stent Family History (Updated 10/24/19 @ 04:50 by Stacie Grey MD) Denies family history of Bleeding disorder Stroke Social History Smoking and tobacco status: former smoker Alcohol intake: never Adopted: No Caregiver/support person: No Lives independently: No Household members: spouse Marital status: Current occupational status: retired History of recent travel: No Current gender identity: Female Vitals/I&O/Wt Last Vital Signs Temp 98.2 F 10/24/19 01:44 Pulse 72 10/24/19 03:44 Resp 22 H 10/24/19 03:44 BP 96/48 10/24/19 03:44 Pulse Ox 97 10/24/19 03:44 Weight last 48 hrs Weight 54.885 kg Physical Exam Narrative: EXAM NARRATIVE: Head to toe examination Frail elderly female Severely dehydrated, malnourished appearance Dried bucal mucous membrane Sunken eyes, S1, S2 no signs of heart failure, heart rate sinus rhythm, 70-80, Abdomen shows mild tenderness around the left lower quadrant area, right upper quadrant deep palpation elicits pain, No active seizure, good handgrip bilaterally, limited range of motion of right shoulder, patient is oriented to time and person but not place Bilateral breath sounds without adventitious sounds Lethargic and fatigued EOMI, PERRLA Chronic skin rash on her forehead No lower extremity edema Data : 10/24/19 02:03 10/24/19 02:03 A&P Assessment and plan (1) Hyponatremia: Status: Acute (2) Weakness: Status: Acute (3) Narrow complex tachycardia: Status: Acute (4) Hyperglycemia due to diabetes mellitus: Status: Acute (5) Acute kidney injury: Status: Acute Additional A&P Information Symptomatic hyponatremia Corrected sodium 125 This seems most likely secondary to poor p.o. intake and use of hydrochloroth iazide Symptoms got worse on Wednesday, she would meet criteria for chronic hyponatremia I will get TSH, uric acid, urine sodium, creatinine and serum osmolarity Clinically she looks dry, hypovolemic state, Admit to ICU, slow correction of sodium with normal saline 30 cc/h, sodium to be checked every 4 hours Hold losartan and hydrochlorothiazide Narrow complex tachycardia at the time of admission, Heart rate 150s which improved with fluid cessation and 10 mg of Cardizem Patient carries history of tachybradycardia syndrome as well Monitor in ICU Follow-up with TSH Acute on chronic kidney disease Patient has history of recurrent UTIs, current urinalysis unremarkable, I would obtain CT abdomen pelvis without contrast to rule out postobstructive nephropathy Currently denying signs of UTI Hold losartan hydrochlorothiazide Stent was removed in July by Dr. Castillo for obstructive pyelonephritis Poorly controlled type 2 diabetes Sliding scale along long-acting insulin Nausea and vomiting likely secondary to cholelithiasis No active fever, leukocytosis or abnormal LFTs Would obtain ultrasound of the abdomen I would hold off on adding any antibiotics at this point Consistent carb diet DVT prophylaxis Heparin Full code Attestations Medical Necessity Statement*: Patient will need ICU for hyponatremia which is symptomatic, acute kidney injury and poorly controlled type 2 diabetes, Time Spent in Patient Care: (>than 50% of time spent in counselling and/or direct pt care on unit) . 60 minutes Coding Level of Care Code Acute Denture Processor for Baljinder Cullen Diagnoses Hyponatremia E87.1 Weakness R53.1 Narrow complex tachycardia I47.1 Hyperglycemia due to diabetes mellitus E11.65 Acute kidney injury N17.9
--- NOTE | 2019-10-24 04:47 | CTR_ITS ---
PROCEDURE INFORMATION: Exam: CT Abdomen And Pelvis Without Contrast Exam date and time: 10/24/2019 4:47 AM Age: 84 years old Clinical indication: Condition or disease; Kidney or ureter condition; Other: HX pyelonephritis; Prior surgery; Surgery date: 6+ months; Surgery type: Hyst; Additional info: History of pyelonephritis, currently geo TECHNIQUE: Imaging protocol: Computed tomography of the abdomen and pelvis without contrast. Radiation optimization: All CT scans at this facility use at least one of these dose optimization techniques: automated exposure control; mA and/or kV adjustment per patient size (includes targeted exams where dose is matched to clinical indication); or iterative reconstruction. COMPARISON: CT abdomen pelvis wo/w [id number] 06/24/2019 8:20 PM RADIATION DOSE METRICS: Total DLP (mGy-cm): 505.4 FINDINGS: Lungs: Bibasilar atelectasis or other infiltrates. Liver: No mass. Gallbladder and bile ducts: Calcified stones noted in the gallbladder. Pancreas: No ductal dilation. Spleen: No splenomegaly. Adrenals: No mass. Kidneys and ureters: 2.2 cm simple cyst in the lower pole of the right kidney, no change, no follow up necessary. No hydronephrosis. Stomach and bowel: Large amount of stool noted in the colon. No dilated bowel loops. No high-grade obstruction. Colonic diverticulosis without findings of diverticulitis. Appendix: No evidence of appendicitis. Intraperitoneal space: No free air. No significant fluid collection. Vasculature: Atherosclerotic changes of the aorta. Lymph nodes: No enlarged lymph nodes. Bladder: Unremarkable as visualized. Reproductive: Status post hysterectomy. Bones/joints: Chronic L2 and L3 superior endplate compression fractures. Soft tissues: Unremarkable. CT/CT abdomen pelvis wo con [id number] IMPRESSION: 1. Constipation. 2. Cholelithiasis. 3. Bibasilar atelectasis or other infiltrates. Radiation Dose CTDIVOL = (mGy): DLP = 505.4 (mGy-cm)
[2019-10-24] MEDS: heparin 5,000 unit/mL INJ 1 mL 5000 UNIT SUBCUT ×3 (05:34→21:38)
[2019-10-24 06:02] LABS: Thyroid Stimulating Hormone 0.34 uIU/mL (0.27-4.20); Uric Acid 11.2 mg/dL (2.4-5.7)
[2019-10-24 06:11] LABS: Urine Creatinine 158 mg/dL (28-217)
[2019-10-24 06:15] LABS: Urine Random Sodium 15 mmol/L
[2019-10-24 06:30] LABS: Sodium 142 mmol/L (136-145)
[2019-10-24 06:45] LABS: LAB Peripheral Smear Sent for Review
[2019-10-24 07:47] LABS: Glucose Point of Care 274 mg/dL (70-110)
--- NOTE | 2019-10-24 08:45 | PM.PN ---
Subjective Subjective: Interval history: Patient known to me from previous admission earlier this year. Noted labs and imaging findings. Hemodynamically stable, heart rate controlled, afebrile. Sodium level normalized. Little sleep overnight, so catching up now. Denies complaints currently. Medications: Reviewed: Yes Medication Review Details: Active Medications Generic Name Dose Route Start Last Admin Trade Name Freq PRN Reason Stop Dose Admin Dextrose 25 ml 10/24/19 05:08 D50w IVP ONCE PRN hypoglycemia prot ocol Protocol Dextrose 50 ml 10/24/19 05:08 D50w IVP PRN PRN hypoglycemia prot ocol Protocol Glucagon 1 mg 10/24/19 05:08 Glucagen IM ONCE PRN Adult Acute Hypog lycemia Prot. Protocol Heparin Sodium (Be ef Lung) 5,000 unit 10/24/19 05:08 10/24/19 05:34 Heparin SUBCUT 5,000 unit Q8H KURT Administration Sodium Chloride 1,000 mls @ 30 ml s/hr 10/24/19 05:08 10/24/19 05:13 Sodium Chloride 0.9% IV Not Given .Q24H KURT Dextrose 500 mls @ 100 mls /hr 10/24/19 05:08 D5w IV ONCE PRN Adult Acute Hypog lycemia Prot Protocol Insulin Aspart 0 unit 10/24/19 08:00 10/24/19 08:29 Novolog SUBCUT 10 unit WM&BEDTIME KURT Administration Protocol Insulin Glargine 15 unit 10/24/19 21:00 Lantus SUBCUT BEDTIME KURT Senna/Docusate Sod ium 1 tab 10/24/19 05:08 Senna-S PO DAILY PRN CONSTIPATION No Known Allergies Allergy (Verified 10/24/19 02:19) Vitals/I&O/Wt Last Vital Signs Temp 98.2 F 10/24/19 05:38 Pulse 75 10/24/19 08:17 Resp 29 H 10/24/19 08:17 BP 98/46 10/24/19 07:10 Pulse Ox 96 10/24/19 08:17 Weight last 48 hrs Weight 55.61 kg Weight 54.885 kg Physical Exam Const: COMMON NORMALS: no acute distress, patient oriented x3 and alert GENERAL APPEARANCE: cooperative and comfortable ORIENTATION/CONSCIOUSNESS: Yes awake OTHER: -looks appropriate for age HENMT: COMMON NORMALS: normocephalic, atraumatic, hearing grossly normal bilaterally and moist oral mucous membranes HEAD & SCALP: normocephalic and atraumatic TEETH & GINGIVA: Yes dentures Eye: COMMON NORMALS: Equal, round and reactive pupils present, EOMs intact bilaterally and conjunctivae normal CONJUNCTIVA: Yes conjunctivae normal PUPIL: Yes Equal, round and reactive pupils present Neck/C-Spine: COMMON NORMALS: full ROM GENERAL: Yes normal visual inspection and Yes trachea midline Resp: COMMON NORMALS: normal respiratory effort, No retractions, No use of accessory muscles and clear to auscultation bilaterally EFFORT & INSPECTION: Yes able to speak in complete sentences, Yes symmetric chest movement and No tachypneic AUSCULTATION: clear to auscultation bilaterally Cardio: COMMON NORMALS: regular rate, regular rhythm, S1 normal heart sound present, S2 normal heart sound present and No murmurs present (Cardio) RATE: regular rate RHYTHM: regular rhythm HEART SOUNDS: S1 normal heart sound present and S2 normal heart sound present GI: COMMON NORMALS: Normal to inspection, nondistended, normoactive bowel sounds present, Soft to palpation and non-tender PALPATION: Yes Soft to palpation Extremity: COMMON NORMALS: normal to inspection, full ROM and no clubbing, cyanosis or edema; negative for no pedal edema Neuro: COMMON NORMALS: patient oriented x3, moves all extremities, no focal motor deficits, no sensory deficits noted and gait normal SENSORIUM/ORIENTATION: Yes alert Psych: COMMON NORMALS: mental status grossly normal, Normal thought process present, cooperative, normal affect and speech normal SPEECH: Yes normal speech THOUGHT PROCESS: Normal thought process present Skin: COMMON NORMALS: no rashes or lesions noted, no jaundice, no petechiae and no mottling GENERAL SKIN EXAM: no rashes or lesions noted Data : 10/24/19 02:03 10/24/19 08:30 A&P Assessment and plan (1) Acute kidney injury: -Noted acute renal impairment which is likely due to poor oral intake and subsequent dehydration, medication induced -Continue to monitor renal function, avoid nephrotoxins, renally dose meds -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; baseline Cr is around 1.5-1.7 though has been as high as 2.0 in the past; renal function improving -off IVF hydration -UA negative -hold ACEi and diuretics -uric acid-11.2 Status: Acute (2) Hyperglycemia due to diabetes mellitus: -Accuchecks, ISS and long acting insulin if oral intake improving -hypoglycemia precautions Status: Acute (3) Narrow complex tachycardia: -telemetry monitoring -rate controlled -continue to monitor vital signs Status: Acute (4) Hyponatremia: -Sodium level normalized, received some IV fluid hydration in ED Status: Resolved (5) Diabetes: -IDDM type II; A1c-7.2 -continue accucheks, ISS, hypoglycemia precautions Status: Chronic Qualifiers: Chronic kidney disease stage: stage 3 (moderate) Diabetes mellitus complication detail: with chronic kidney disease Diabetes mellitus complication status: with kidney complications Diabetes mellitus adjunct faculty for medical terminology insulin use: with adjunct faculty for medical terminology use Diabetes mellitus type: type 2 Qualified Code(s): E11.22 - Type 2 diabetes mellitus with diabetic chronic kidney disease; N18.3 - Chronic kidney disease, stage 3 (moderate); Z79.4 - adjunct faculty for medical terminology (current) use of insulin (6) GERD (gastroesophageal reflux disease): -on famotidine Status: Chronic Qualifiers: Esophagitis presence: esophagitis presence not specified Qualified Code(s): K21.9 - Gastro-esophageal reflux disease without esophagitis (7) Hypertension: -normotensive currently, continue to monitor vital signs -hold ACEi, diuretics due to renal impairment -hold CCB to prevent hypotension with limited oral intake Status: Chronic Qualifiers: Hypertension type: essential hypertension Qualified Code(s): I10 - Essential (primary) hypertension Additional A&P Information -Previously noted to have a left ureteral obstruction with mild to moderate left hydronephrosis and proximal left hydroureter status post left ureteral stent placement that was removed by Dr. Castillo on 07/31 -Cholelithiasis, had prior workup including US and MRCP in 06/2019 with no noted cholecystitis or choledocholithiasis -hx of uterine cancer s/p hysterectomy -Advanced age -Constipation, fecal retention on imaging; bowel regimen -Chronic lumbar spine compression fractures -Acute thrombocytopenia; previous platelet counts wnl -Hypocalcemia; corrected Ca-8.5 -GI ppx with famotidine -DVT ppx with heparin -fall precautions -Dispo: home -Code status: FULL code -transfer to floor Attestations Medical Necessity Statement*: Patient requires hospitalization for continued management of acute renal impairment, hemodynamic status monitoring pending improved oral intake. Time Spent in Patient Care: Greater than 35 minutes (>than 50% of time spent in counselling and/or direct pt care on unit). Coding Level of Care Code Acute Hot Plate Plywood Press Feeder for g Fwd Exam Comprehensive Diagnoses Acute kidney injury N17.9 Hyperglycemia due to diabetes mellitus E11.65 Narrow complex tachycardia I47.1 Hyponatremia E87.1 Diabetes E11.22; N18.3; Z79.4 Chronic kidney disease stage: stage 3 (moderate) Diabetes mellitus complication detail: with chronic kidney disease Diabetes mellitus complication status: with kidney complications Diabetes mellitus alf insulin use: with adjunct faculty for medical terminology use Diabetes mellitus type: type 2 GERD (gastroesophageal reflux disease) K21.9 Esophagitis presence: esophagitis presence not specified Hypertension I10 Hypertension type: essential hypertension
[2019-10-24 08:56] LABS: Sodium 122 mmol/L (136-145)
[2019-10-24] MEDS: famotidine 20 mg/2 mL INJ IVP ×2 (09:35→21:37)
[2019-10-24 11:36] LABS: Glucose Point of Care 190 mg/dL (70-110)
--- NOTE | 2019-10-24 11:47 | PC.NURSE ---
transfer PT was transferred by wheelchair to [facility] at 1140 by this nurse. Pt had watch on left wrist and dentures in mouth. Patient hand off to [facility] staff.
[2019-10-24 21:13] LABS: Glucose Point of Care 175 mg/dL (70-110)
[2019-10-24] MEDS: insulin glargine 100 units/1 mL 15 UNIT SUBCUT (21:38)
[2019-10-25] VITALS (9 sets, daily range): BP systolic 102–126; BP diastolic 50–69; PULSE 73–170; RESP 16–21; TEMP 36.4–37.9; O2SAT 90–97; BMI 23.6
--- NOTE | 2019-10-25 02:35 | ECG_ITS ---
[facility] Test Date: 2019-10-25 Pat Name: Melissa Fermin Department: Room: 251 Gender: Female Hosiery Pairer: : 1935 Requested By: Stacie Grey Order Number: [id number] Elvis MD: iNk Woodward M.D. Measurements Intervals Mclean Rate: 160 P: ME: -1 QRS: 9 QRSD: 101 T: 194 QT: 252 QTc: 412 Interpretive Statements ATRIAL flutter WITH RAPID VENTRICULAR RESPONSE ST DEVIATION AND MODERATE T-WAVE ABNORMALITY, CONSIDER LATERAL ISCHEMIA [-0.1+ mV T WAVE IN I/aVL/V5/V6] ST DEVIATION AND MODERATE T-WAVE ABNORMALITY, CONSIDER INFERIOR ISCHEMIA [-0.1+ mV T WAVE IN II/aVF] Compared to ECG 10/24/2019 03:11:28 Possible ischemia now present Sinus rhythm no longer present T-wave abnormality still present Electronically Signed On 10-25-2019 20:29:21 CDT by Nik Woodward M.D. [id number]
--- NOTE | 2019-10-25 03:48 | PM.EVENT ---
Event Note Event Note: Persistent tachycardia EKG revealed atrial flutter with RVR heart rate 160 Persistent RVR despite Cardizem 50 mg IV push I would go ahead and start anticoagulation with heparin, start Cardizem drip and transfer her to CSU Of note she had similar episode on admission last night as well
--- NOTE | 2019-10-25 04:07 | PC.NURSE ---
PATIENT AND BELONGINGS TRANSFERRED TO CARDIAC STEP DOWN UNIT. REPORT CALLED AND GIVEN TO LIZ LEMONS. PATIENT TRANSPORTED BY WHEELCHAIR WITH CELL PHONE AND VETERINARIAN POULTRY. PATIENT ORIENTED TO ROOM BY AIDE AND NURSE.
[2019-10-25 04:12] LABS: Basophils % 0.3 %; Eosinophils % 0.1 %; Hematocrit 30.3 % (37.0-47.0); Hemoglobin 10.4 g/dL (11.5-15.3); Lymphocytes # 1.2 10^3/uL (0.8-4.8); Lymphocytes % 15.2 %; Mean Corpuscular HGB Conc 34.3 g/dL (30.0-36.0); Mean Corpuscular Hemoglobin 26.8 pg (28.0-34.0); Mean Corpuscular Volume 78.1 fL (81-99); Monocytes # 1.5 10^3/uL (0.2-0.9); Neutrophils # 4.43 10^3/uL (1.8-7.7); Neutrophils % 58.3 %; Nucleated Red Blood Cells % 0 %; Platelet Count 63 10^3/cmm (130-400); Red Blood Count 3.88 10^6/uL (4.1-5.3); Red Cell Distribution Width 16.8 % (12.1-15.1); White Blood Count 7.6 10^3/uL (4.0-10.0)
[2019-10-25 04:31] LABS: Blood Urea Nitrogen 53 mg/dL (8-23); Calcium 7.3 mg/dL (8.5-10.5); Carbon Dioxide 18 mmol/L (22-29); Chloride 94 mmol/L (98-107); Glucose 177 mg/dL (65-115); Osmolality Calculated 267 mOsm/kg (285-295); Sodium 127 mmol/L (136-145)
[2019-10-25 04:37] LABS: Anion Gap 18.5 (5-19); Potassium 3.5 mmol/L (3.5-5.1)
[2019-10-25 04:38] LABS: Slide Review Slide Review Perform
--- NOTE | 2019-10-25 04:42 | PC.NURSE ---
PT ARRIVED TO ROOM 101. PT IS WEAK AND NEEDED A 1 ASSIST TO BED FROM WHEELCHAIR. PT RHYTHM IS A-FIB/FLUTTER. HR 106, BP 103/69, RR 16, SPO2 97% RA. PT DENIES PAIN AT THIS TIME. PT ORIENTATED TO ROOM. DOCTOR IS PUTTING IN ORDERS. WILL CONTINUE TO MONITOR.
--- NOTE | 2019-10-25 04:46 | PC.NURSE ---
PUT IN ORDERS FOR CARDIZEM AND HEPARIN DRIPS. RN WILL START DRIPS. WILL CONTINUE TO MONITOR.
--- NOTE | 2019-10-25 05:30 | PC.NURSE ---
Attempted to contacted Dr. Grey regarding patient heparin drip loading dose. No answer at this time.
[2019-10-25] MEDS: heparin drip 25,000 UNIT/500 ML PREMIX 15 UNIT IV (05:56)
[2019-10-25] MEDS: sodium chloride 0.9% 1,000 ML 30 ML IV (05:56)
--- NOTE | 2019-10-25 06:02 | PC.NURSE ---
BRANCH RETAIL EXECUTIVE NURSE STARTED HEPARIN DRIP. PT AMBULATED TO BATHROOM. PT DENIES PAIN AT THIS TIME. PT STATES THAT THEY JUST WANT TO SLEEP. PT HR WAS 160'S WHEN PUT BACK ON TELE. VAGAL MANEUVER WAS ATTEMPTED BY PT WITHOUT RESULTS. WILL CONTINUE TO MONITOR.
[2019-10-25 06:20] LABS: Glucose Point of Care 193 mg/dL (70-110)
[2019-10-25] MEDS: famotidine 20 mg/2 mL INJ IVP ×2 (08:26→20:43)
--- NOTE | 2019-10-25 09:25 | PM.PN ---
Subjective Subjective: Interval history: Overnight was noted to have a recurrence of A. fib with RVR requiring initiation of Cardizem drip transferred to CSU. She has converted to normal sinus rhythm and Cardizem drip has been weaned off. Will start on oral Cardizem. Started on anticoagulation with heparin drip. Noted stable hemoglobin, slightly worsening thrombocytopenia, improved renal function. Does not seem to want to eat very much but seems to like ice cream and milkshakes primarily. Medications: Reviewed: Yes Medication Review Details: Active Medications Generic Name Dose Route Start Last Admin Trade Name Freq PRN Reason Stop Dose Admin Dextrose 25 ml 10/24/19 05:08 D50w IVP ONCE PRN hypoglycemia prot ocol Protocol Dextrose 50 ml 10/24/19 05:08 D50w IVP PRN PRN hypoglycemia prot ocol Protocol Famotidine 20 mg 10/24/19 09:15 10/25/19 08:26 Pepcid Inj IVP 20 mg Q12H KURT Administration Glucagon 1 mg 10/24/19 05:08 Glucagen IM ONCE PRN Adult Acute Hypog lycemia Prot. Protocol Heparin Sodium (Be ef Lung) 5,000 unit 10/24/19 05:08 10/24/19 21:38 Heparin SUBCUT 5,000 unit Q8H KURT Administration Heparin Sodium (Be ef Lung) 0 unit 10/25/19 04:34 Heparin IV PRN PRN Heparin weight-ba se protocol Protocol Sodium Chloride 1,000 mls @ 30 ml s/hr 10/24/19 05:08 10/25/19 05:56 Sodium Chloride 0.9% IV 30 mls/hr .Q24H KURT Administration Dextrose 500 mls @ 100 mls /hr 10/24/19 05:08 D5w IV ONCE PRN Adult Acute Hypog lycemia Prot Protocol Diltiazem HCl 125 mg/ Sodium 125 mls @ 0 mls/h r 10/25/19 04:34 10/25/19 06:32 Chloride IV 5 mg/hr .Q0M KURT 5 mls/hr Titration Protocol Per Protocol Heparin Sodium/Sod ium Chloride 25,000 unit in 50 0 mls @ 0 mls/hr 10/25/19 04:34 10/25/19 05:56 Heparin Drip IV 13.49 unit/kg/hr .Q0M KURT 15 mls/hr Administration Protocol Per Protocol Insulin Aspart 0 unit 10/24/19 08:00 10/25/19 07:49 Novolog SUBCUT 6 unit WM&BEDTIME KURT Administration Protocol Insulin Glargine 15 unit 10/24/19 21:00 10/24/19 21:38 Lantus SUBCUT 15 unit BEDTIME KURT Administration Senna/Docusate Sod ium 1 tab 10/24/19 05:08 Senna-S PO DAILY PRN CONSTIPATION No Known Allergies Allergy (Verified 10/24/19 02:19) Vitals/I&O/Wt Last Vital Signs Temp 98.0 F 10/25/19 09:07 Pulse 76 10/25/19 09:07 Resp 16 10/25/19 09:07 BP 110/50 10/25/19 09:07 Pulse Ox 96 10/25/19 09:07 10/24/19 10/25/19 10/25/19 22:59 06:59 14:59 Intake Total 10.917 / 130.917 120 / 120 Balance 10.917 / 130.917 120 / 120 Weight last 48 hrs Weight 56.699 kg Weight 55.61 kg Weight 54.885 kg Physical Exam Const: COMMON NORMALS: no acute distress, patient oriented x3 and alert GENERAL APPEARANCE: cooperative and comfortable ORIENTATION/CONSCIOUSNESS: Yes awake OTHER: -looks appropriate for age HENMT: COMMON NORMALS: normocephalic, atraumatic, hearing grossly normal bilaterally and moist oral mucous membranes HEAD & SCALP: normocephalic and atraumatic TEETH & GINGIVA: Yes dentures Eye: COMMON NORMALS: Equal, round and reactive pupils present, EOMs intact bilaterally and conjunctivae normal CONJUNCTIVA: Yes conjunctivae normal PUPIL: Yes Equal, round and reactive pupils present Neck/C-Spine: COMMON NORMALS: full ROM GENERAL: Yes normal visual inspection and Yes trachea midline Resp: COMMON NORMALS: normal respiratory effort, No retractions, No use of accessory muscles and clear to auscultation bilaterally EFFORT & INSPECTION: Yes able to speak in complete sentences, Yes symmetric chest movement and No tachypneic AUSCULTATION: clear to auscultation bilaterally Cardio: COMMON NORMALS: regular rate, regular rhythm, S1 normal heart sound present, S2 normal heart sound present and No murmurs present (Cardio) RATE: regular rate RHYTHM: regular rhythm HEART SOUNDS: S1 normal heart sound present and S2 normal heart sound present GI: COMMON NORMALS: Normal to inspection, nondistended, normoactive bowel sounds present, Soft to palpation and non-tender PALPATION: Yes Soft to palpation Extremity: COMMON NORMALS: normal to inspection, full ROM and no clubbing, cyanosis or edema; negative for no pedal edema Neuro: COMMON NORMALS: patient oriented x3, moves all extremities, no focal motor deficits and no sensory deficits noted SENSORIUM/ORIENTATION: Yes alert Psych: COMMON NORMALS: mental status grossly normal, Normal thought process present, cooperative, normal affect and speech normal SPEECH: Yes normal speech THOUGHT PROCESS: Normal thought process present Skin: COMMON NORMALS: no rashes or lesions noted, no jaundice, no petechiae and no mottling GENERAL SKIN EXAM: no rashes or lesions noted Data : 10/25/19 03:20 10/25/19 03:20 A&P Assessment and plan (1) Narrow complex tachycardia: -telemetry monitoring -rate controlled -continue to monitor vital signs -A. fib with RVR overnight, Cardizem drip, weaned off following conversion to NSR, will start on oral Cardizem -Anticoagulation with heparin drip, close monitoring of platelet count given thrombocytopenia and anemia. 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; baseline Cr is around 1.5-1.7 though has been as high as 2.0 in the past; renal function improving -off IVF hydration -UA negative -hold ACEi and diuretics -uric acid-11.2 Status: Acute (3) Hyperglycemia due to diabetes mellitus: -Accuchecks, ISS and long acting insulin if oral intake improving -hypoglycemia precautions Status: Acute (4) Hyponatremia: -Sodium level normalized, received some IV fluid hydration in ED Status: Resolved (5) Diabetes: -IDDM type II; A1c-7.2 -continue accucheks, ISS, hypoglycemia precautions Status: Chronic Qualifiers: Chronic kidney disease stage: stage 3 (moderate) Diabetes mellitus complication detail: with chronic kidney disease Diabetes mellitus complication status: with kidney complications Diabetes mellitus remote computer terminal operator insulin use: with care home use Diabetes mellitus type: type 2 Qualified Code(s): E11.22 - Type 2 diabetes mellitus with diabetic chronic kidney disease; N18.3 - Chronic kidney disease, stage 3 (moderate); Z79.4 - detention (current) use of insulin (6) GERD (gastroesophageal reflux disease): -on famotidine Status: Chronic Qualifiers: Esophagitis presence: esophagitis presence not specified Qualified Code(s): K21.9 - Gastro-esophageal reflux disease without esophagitis (7) Hypertension: -normotensive currently, continue to monitor vital signs -hold ACEi, diuretics due to renal impairment -hold CCB to prevent hypotension with limited oral intake Status: Chronic Qualifiers: Hypertension type: essential hypertension Qualified Code(s): I10 - Essential (primary) hypertension Additional A&P Information -Previously noted to have a left ureteral obstruction with mild to moderate left hydronephrosis and proximal left hydroureter status post left ureteral stent placement that was removed by Dr. Castillo on 07/31 -Cholelithiasis, had prior workup including US and MRCP in 06/2019 with no noted cholecystitis or choledocholithiasis -hx of uterine cancer s/p hysterectomy -Advanced age -Constipation, fecal retention on imaging; bowel regimen -Chronic lumbar spine compression fractures -Acute thrombocytopenia; previous platelet counts wnl; monitor closely with heparin drip -Hypocalcemia; corrected Ca-8.1 -GI ppx with famotidine -DVT ppx with heparin -fall precautions -Dispo: home -Code status: FULL code Attestations Medical Necessity Statement*: Patient requires hospitalization for continued management of atrial fibrillation, hyponatremia, acute renal impairment. Time Spent in Patient Care: 16 - 35 minutes (>than 50% of time spent in counselling and/or direct pt care on unit). Coding Level of Care Code Acute Pt Escort for [facility] Fwd Exam Comprehensive Diagnoses Narrow complex tachycardia I47.1 Acute kidney injury N17.9 Hyperglycemia due to diabetes mellitus E11.65 Hyponatremia E87.1 Diabetes E11.22; N18.3; Z79.4 Chronic kidney disease stage: stage 3 (moderate) Diabetes mellitus complication detail: with chronic kidney disease Diabetes mellitus complication status: with kidney complications Diabetes mellitus remote computer terminal operator insulin use: with care home use Diabetes mellitus type: type 2 GERD (gastroesophageal reflux disease) K21.9 Esophagitis presence: esophagitis presence not specified Hypertension I10 Hypertension type: essential hypertension
--- NOTE | 2019-10-25 09:44 | USCV_ITS ---
Melissa Fermin Age: 84 Gender: F : 1935 Exam Date: 10/25/2019 15:57 Ordering Phys: Xiao Starr MD Technologist: Maribell Hanson Exam Location: [facility] [place] Indication: afib with RVR BP: 123 / 59 HR: 81 Rhythm: Atrial fibrillation Technical Quality: Adequate MEASUREMENTS (Male / Female) Normal Values 2D ECHO LV Diastolic Diameter PLAX 3.5 cm 4.2 - 5.9 / 3.9 - 5.3 cm LV Systolic Diameter PLAX 2.1 cm IVS Diastolic Thickness 1.6 cm 0.6 - 1.0 / 0.6 - 0.9 cm IVS Systolic Thickness 1.4 cm LVPW Diastolic Thickness 1.0 cm 0.6 - 1.0 / 0.6 - 0.9 cm LVPW Systolic Thickness 1.4 cm LVOT Diameter 2.0 cm LV Ejection Fraction 2D Teich 73.4 % LV Ejection Fraction MOD 2C 71.4 % LV Ejection Fraction 2C AL 66.3 % LA Diameter 2.1 cm LA Width 2.1 cm LA Height 5.4 cm RA Width 3.5 cm RA Height 4.1 cm M-MODE Aortic Annulus Diameter 3.2 cm LA Ao Ratio MM 0.7 DOPPLER AV Peak Velocity 167.0 cm/s LVOT Peak Velocity 127.0 cm/s AV Area Cont Eq vti 2.9 cm squared AV Area Cont Eq pk 2.4 cm squared MV Peak Velocity 121.0 cm/s MV Area PHT 2.6 cm squared Mitral E to A Ratio 0.8 MV E' Velocity 89.0 cm/s TR Peak Velocity 217.0 cm/s TR Peak Gradient 18.9 mmHg Right Atrial Pressure 3.0 mmHg Pulmonary Artery Systolic Pressu 21.8 mmHg PV Peak Velocity 120.0 cm/s RV Acceleration Time 0.1 s FINDINGS Left Ventricle Normal left ventricular size, systolic function and wall thickness, with no regional wall motion abnormalities. Rhythm precludes evaluation of diastolic function. Left ventricular ejection fraction is estimated at 65 %. Right Ventricle Normal right ventricular size and systolic function. Normal right ventricular systolic pressure. Right Atrium The right atrium is normal in size. Left Atrium The left atrium is normal in size. Mitral Valve Structurally normal mitral valve without significant stenosis or prolapse. There is no mitral regurgitation. Aortic Valve Structurally normal trileaflet aortic valve. 1 of the aortic valve leaflets is heavily calcified and appears mobile. It is seen only in the apical views. It is not seen well enough in the parasternal short axis view to determine the specific leaflet. This is most likely a calcified leaflet. There is a low probability of a vegetation however this has the appearance more of a calcified leaflet. If there is no suspicion of endocarditis no other study is indicated. Tricuspid Valve Structurally normal tricuspid valve. Trace tricuspid valve regurgitation. Pulmonic Valve Pulmonic valve not well visualized. Pericardium Normal pericardium without effusion. Aorta Normal ascending aorta dimension. CONCLUSIONS Normal left ventricular size, systolic function and wall thickness, with no regional wall motion abnormalities. Rhythm precludes evaluation of diastolic function. Left ventricular ejection fraction is estimated at 65 %. Structurally normal trileaflet aortic valve. 1 of the aortic valve leaflets is heavily calcified and appears mobile. It is seen only in the apical views. It is not seen well enough in the parasternal short axis view to determine the specific leaflet. This is most likely a calcified leaflet. There is a low probability of a vegetation however this has the appearance more of a calcified leaflet. If there is no suspicion of endocarditis no other study is indicated. There are no prior echocardiogram studies to compare. Dr. Aguilar Farris MD (Electronically Signed) Final Date: 25 October 2019 19:02 S
[2019-10-25] MEDS: dilTIAZem 30 mg Tablet PO ×3 (10:01→20:43)
--- NOTE | 2019-10-25 10:53 | PC.CHAP ---
Pastoral Care Encounter/Spiritual Assessment Type of Contact [] Declined last model maker visit [] Patient/Family/Request visit [] Outpatient visit [] Follow-up visit [] Physician referral [] Code/Alert [x] Routine visit [] Staff referral [] Actively dying [] Patient sleeping [] Family support [] [] Out of room [] Palliative care [] [] Receiving care in room [] Pre-surgical visit [] Trauma [] Long length of stay [] ICU visit [] Other: Relational/Emotional Strength [] Patient feels connected with others/family/visitors/staff [] Distress [] Loneliness/isolation [] Abandonment Spirituality of Patient [] Person of Amber [] Attends Hinduism of their Amber [] Believes in Prayer [] Reads Bible or Yazidism materials [] There are Spiritual issues to be addressed Chairman & Ceo Interventions [x] Prayer [x] Active listening [x] Non-anxious presence [x] Spiritual/emotional support [] Crisis/trauma care [] Spiritual counseling [] Bereavement support [] Provided bereavement packet [] Provided Bible/devotional materials [] Provided toy/stuffed animal, coloring book to patient or family member [] Provided Communion [] Anointing/Bear [] Salvation [x] Completed spiritual assessment [] Other: Impact on Illness or Injury [] Angry [] Fearful [] Anxious [] Often cries [] Exhaustion [] Unable to work [] Unable to attend taoist [] Unable to walk/stand [] Unable to read [] Unable to drive [] Unable to eat/drink [] Unable to sleep [] Unable to be with family [] Patient intubated [] Other: Summary Patient feeling strong, and is certain not her time Time spent with patient 10 min
[2019-10-25 11:10] LABS: Glucose Point of Care 160 mg/dL (70-110)
--- NOTE | 2019-10-25 11:13 | PC.NURSE ---
patient Iv infiltrated at 0830 2 attempts made by this nurse with no success Kj RN from Cath to assist; new IV access obtained after multiple sticks patient tolerated well
--- NOTE | 2019-10-25 12:03 | PC.NURSE ---
Dr santizo at bedside for assessment and discussion of POC.
[2019-10-25 13:11] LABS: Partial Thromboplastin Time 39.6 SECONDS (23.9-36.7)
[2019-10-25] MEDS: heparin 5,000 unit/mL INJ 1 mL IV (13:38)
[2019-10-25 14:29] LABS: Osmolality Urine 408 mOsm/kg (50-1200)
[2019-10-25 14:29] LABS: Osmolality Serum 290 mOsm/kg (278-305)
[2019-10-25 16:19] LABS: Glucose Point of Care 247 mg/dL (70-110)
[2019-10-25 19:11] LABS: Partial Thromboplastin Time 74.2 SECONDS (23.9-36.7)
--- NOTE | 2019-10-25 19:19 | PC.NURSE ---
Received bedside report from Robyn Rogers RN. Patient resting in bed. Denies needs or discomforts at this time. No distress observed.
[2019-10-25 20:39] LABS: Glucose Point of Care 182 mg/dL (70-110)
[2019-10-25] MEDS: insulin glargine 100 units/1 mL 15 UNIT SUBCUT (20:43)
--- NOTE | 2019-10-25 21:01 | PC.NURSE ---
PTT 74.2. No change to heparin drip at this time.
--- NOTE | 2019-10-26 01:39 | PC.NURSE ---
Rounding on patient. Found patient to have clothes and covers removed. Patient reports feeling hot . Decreased temperature in room. Patient expressed thanks. Assisted patient up to BSC. Patient stated, I feel as weak as a kitten . Patient required max contact assist for toileting. Brief changed. Absorbent pad placed. Assisted patient back to bed x2 assist. Positioned for comfort. Placed call on in hand reach of patient. Reinforced instruction to call for assistance. Patient verbalized understanding.
[2019-10-26 03:08] LABS: Anion Gap 12.3 (5-19); Blood Urea Nitrogen 45 mg/dL (8-23); Calcium 6.9 mg/dL (8.5-10.5); Carbon Dioxide 20 mmol/L (22-29); Chloride 99 mmol/L (98-107); Glucose 68 mg/dL (65-115); Osmolality Calculated 262 mOsm/kg (285-295); Potassium 3.3 mmol/L (3.5-5.1); Sodium 128 mmol/L (136-145)
[2019-10-26 03:10] LABS: Partial Thromboplastin Time 69.5 SECONDS (23.9-36.7)
[2019-10-26 03:19] LABS: Basophils % 0.1 %; Eosinophils % 0.1 %; Hematocrit 25.6 % (37.0-47.0); Lymphocytes # 1.3 10^3/uL (0.8-4.8); Lymphocytes % 18.3 %; Mean Corpuscular HGB Conc 35.2 g/dL (30.0-36.0); Mean Corpuscular Hemoglobin 26.8 pg (28.0-34.0); Mean Corpuscular Volume 76.2 fL (81-99); Monocytes # 1.2 10^3/uL (0.2-0.9); Monocytes % 16.7 %; Neutrophils # 4.15 10^3/uL (1.8-7.7); Neutrophils % 60.3 %; Nucleated Red Blood Cells % 0 %; Platelet Count 62 10^3/cmm (130-400); Red Blood Count 3.36 10^6/uL (4.1-5.3); Red Cell Distribution Width 15.9 % (12.1-15.1); White Blood Count 6.9 10^3/uL (4.0-10.0)
[2019-10-26] MEDS: dilTIAZem 30 mg Tablet PO ×4 (03:32→21:20)
[2019-10-26 03:42] LABS: Slide Review Slide Review Perform
[2019-10-26 04:00] VITALS: BP 103/68; PULSE 65; RESP 27; TEMP 36.6; O2SAT 94
--- NOTE | 2019-10-26 05:10 | PC.NURSE ---
Current PTT is 69.5. No change to heparin drip at this time.
[2019-10-26 06:53] LABS: Glucose Point of Care 78 mg/dL (70-110)
[2019-10-26 07:22] VITALS: BP 101/66; PULSE 72; RESP 13; TEMP 36.7; O2SAT 92
--- NOTE | 2019-10-26 08:48 | P.PN_ITS ---
Subjective Subjective: Interval history: Hemodynamically stable, has remained rate controlled over the past 24 hours, afebrile, on room air. Noted worsening anemia and stable thrombocytopenia so we will discontinue heparin drip. Improvement in renal function and hyponatremia. Replace potassium. Resting quietly in bed, no apparent distress, looks better today. Medications: Reviewed: Yes Medication Review Details: Active Medications Generic Name Dose Route Start Last Admin Trade Name Freq PRN Reason Stop Dose Admin Dextrose 25 ml 10/24/19 05:08 D50w IVP ONCE PRN hypoglycemia prot ocol Protocol Dextrose 50 ml 10/24/19 05:08 D50w IVP PRN PRN hypoglycemia prot ocol Protocol Diltiazem HCl 30 mg 10/25/19 09:45 10/26/19 03:32 Cardizem PO 30 mg Q6H KURT Administration Famotidine 20 mg 10/24/19 09:15 10/25/19 20:43 Pepcid Inj IVP 20 mg Q12H KURT Administration Glucagon 1 mg 10/24/19 05:08 Glucagen IM ONCE PRN Adult Acute Hypog lycemia Prot. Protocol Heparin Sodium (Be ef Lung) 5,000 unit 10/24/19 05:08 10/24/19 21:38 Heparin SUBCUT 5,000 unit Q8H KURT Administration Sodium Chloride 1,000 mls @ 30 ml s/hr 10/24/19 05:08 10/25/19 05:56 Sodium Chloride 0.9% IV 30 mls/hr .Q24H KURT Administration Dextrose 500 mls @ 100 mls /hr 10/24/19 05:08 D5w IV ONCE PRN Adult Acute Hypog lycemia Prot Protocol Diltiazem HCl 125 mg/ Sodium 125 mls @ 0 mls/h r 10/25/19 04:34 10/25/19 23:54 Chloride IV Infused .Q0M KURT Titration Protocol Per Protocol Insulin Aspart 0 unit 10/24/19 08:00 10/26/19 07:20 Novolog SUBCUT Not Given WM&BEDTIME KURT Protocol Insulin Glargine 15 unit 10/24/19 21:00 10/25/19 20:43 Lantus SUBCUT 15 unit BEDTIME KURT Administration Senna/Docusate Sod ium 1 tab 10/24/19 05:08 Senna-S PO DAILY PRN CONSTIPATION No Known Allergies Allergy (Verified 10/24/19 02:19) Vitals/I&O/Wt Last Vital Signs Temp 98.0 F 10/26/19 07:22 Pulse 72 10/26/19 07:22 Resp 13 10/26/19 07:22 BP 101/66 10/26/19 07:22 Pulse Ox 92 10/26/19 07:22 10/25/19 10/26/19 10/26/19 22:59 06:59 14:59 Intake Total 247.5 / 740.333 376.567 / 1116.900 Balance 247.5 / 740.333 376.567 / 1116.900 Weight last 48 hrs Weight 56.563 kg Weight 56.699 kg Physical Exam Const: COMMON NORMALS: no acute distress, patient oriented x3 and alert GENERAL APPEARANCE: cooperative and comfortable ORIENTATION/CONSCIOUSNESS: Yes awake OTHER: -looks appropriate for age HENMT: COMMON NORMALS: normocephalic, atraumatic, hearing grossly normal bilaterally and moist oral mucous membranes HEAD & SCALP: normocephalic and atraumatic TEETH & GINGIVA: Yes dentures Eye: COMMON NORMALS: Equal, round and reactive pupils present, EOMs intact bilaterally and conjunctivae normal CONJUNCTIVA: Yes conjunctivae normal PUPIL: Yes Equal, round and reactive pupils present Neck/C-Spine: COMMON NORMALS: full ROM GENERAL: Yes normal visual inspection and Yes trachea midline Resp: COMMON NORMALS: normal respiratory effort, No retractions, No use of accessory muscles and clear to auscultation bilaterally EFFORT & INSPECTION: Yes able to speak in complete sentences, Yes symmetric chest movement and No tachypneic AUSCULTATION: clear to auscultation bilaterally Cardio: COMMON NORMALS: regular rate, regular rhythm, S1 normal heart sound present, S2 normal heart sound present and No murmurs present (Cardio) RATE: regular rate RHYTHM: regular rhythm HEART SOUNDS: S1 normal heart sound present and S2 normal heart sound present GI: COMMON NORMALS: Normal to inspection, nondistended, normoactive bowel soun ds present, Soft to palpation and non-tender PALPATION: Yes Soft to palpation Extremity: COMMON NORMALS: normal to inspection, full ROM and no clubbing, cyanosis or edema; negative for no pedal edema Neuro: COMMON NORMALS: patient oriented x3, moves all extremities, no focal motor deficits and no sensory deficits noted SENSORIUM/ORIENTATION: Yes alert Psych: COMMON NORMALS: mental status grossly normal, Normal thought process present, cooperative, normal affect and speech normal SPEECH: Yes normal speech THOUGHT PROCESS: Normal thought process present Skin: COMMON NORMALS: no rashes or lesions noted, no jaundice, no petechiae and no mottling GENERAL SKIN EXAM: no rashes or lesions noted Data : 10/26/19 02:45 10/26/19 02:45 A&P Assessment and plan (1) Narrow complex tachycardia: -telemetry monitoring -rate controlled, NSR; weaned off Cardizem drip, on oral Cardizem -continue to monitor vital signs; stable -Anticoagulation with heparin drip, noted worsening anemia and continued thrombocytopenia so will d/c heparin drip. Does not seem to be a good candidate for configuration management specialist anticoagulation but perhaps if stability or improvement in platelet count and Hg, may consider initiation of Eliquis or at least aspirin -will need configuration management specialist anticoagulation, [id number] score of 4 -Echo: EF=65%, no RWMA, trace TR Status: Acute (2) Acute kidney injury: -Noted acute renal impairment which is likely due to poor oral intake and subsequent dehydration, medication induced -Continue to monitor renal function, avoid nephrotoxins, renally dose meds -LINO on CKD stage 3-4; baseline Cr is around 1.5-1.7 though has been as high as 2.0 in the past; renal function improving -gentle IVF hydration -UA negative -hold ACEi and diuretics -uric acid-11.2 Status: Acute (3) Hyperglycemia due to diabetes mellitus: -Accuchecks, ISS and long acting insulin if oral intake improving -hypoglycemia precautions Status: Acute (4) Hyponatremia: -Sodium level improving, continue IV fluid hydration Status: Acute (5) Diabetes: -IDDM type II; A1c-7.2 -continue accucheks, ISS, hypoglycemia precautions Status: Chronic Qualifiers: Chronic kidney disease stage: stage 3 (moderate) Diabetes mellitus complication detail: with chronic kidney disease Diabetes mellitus complication status: with kidney complications Diabetes mellitus skilled nursing insulin use: with configuration management specialist use Diabetes mellitus type: type 2 Qualified Code(s): E11.22 - Type 2 diabetes mellitus with diabetic chronic kidney disease; N18.3 - Chronic kidney disease, stage 3 (moderate); Z79.4 - residential (current) use of insulin (6) GERD (gastroesophageal reflux disease): -on famotidine Status: Chronic Qualifiers: Esophagitis presence: esophagitis presence not specified Qualified Code(s): K21.9 - Gastro-esophageal reflux disease without esophagitis (7) Hypertension: -normotensive currently, continue to monitor vital signs -hold ACEi, diuretics due to renal impairment -hold CCB to prevent hypotension with limited oral intake Status: Chronic Qualifiers: Hypertension type: essential hypertension Qualified Code(s): I10 - Essential (primary) hypertension Additional A&P Information -Previously noted to have a left ureteral obstruction with mild to moderate left hydronephrosis and proximal left hydroureter status post left ureteral stent placement that was removed by Dr. Castillo on 07/31 -Cholelithiasis, had prior workup including US and MRCP in 06/2019 with no noted cholecystitis or choledocholithiasis -hx of uterine cancer s/p hysterectomy -Advanced age -Constipation, fecal retention on imaging; bowel regimen -Chronic lumbar spine compression fractures -Acute thrombocytopenia; previous platelet counts wnl; monitor closely with heparin drip -Hypocalcemia; corrected Ca-8.1 -GI ppx with famotidine -DVT ppx with heparin -fall precautions -Dispo: home -Code status: FULL code Attestations Medical Necessity Statement*: Patient requires hospitalization for continued management of hyponatremia, new onset atrial fibrillation, acute renal impairment. Time Spent in Patient Care: 16 - 35 minutes (>than 50% of time spent in counselling and/or direct pt care on unit) . Coding Level of Care Code Acute Wax Pattern Coater for g Fwd Exam Comprehensive Diagnoses Narrow complex tachycardia I47.1 Acute kidney injury N17.9 Hyperglycemia due to diabetes mellitus E11.65 Hyponatremia E87.1 Diabetes E11.22; N18.3; Z79.4 Chronic kidney disease stage: stage 3 (moderate) Diabetes mellitus complication detail: with chronic kidney disease Diabetes mellitus complication status: with kidney complications Diabetes mellitus skilled nursing insulin use: with skilled nursing use Diabetes mellitus type: type 2 GERD (gastroesophageal reflux disease) K21.9 Esophagitis presence: esophagitis presence not specified Hypertension I10 Hypertension type: essential hypertension
[2019-10-26] MEDS: potassium chloride oral liq 20 mEq/15 mL UDC 40 MEQ PO (09:09)
[2019-10-26] MEDS: famotidine 20 mg/2 mL INJ IVP ×2 (09:12→21:20)
[2019-10-26 10:43] VITALS: BP 111/52; PULSE 65; RESP 19; O2SAT 95
[2019-10-26 11:28] LABS: Glucose Point of Care 207 mg/dL (70-110)
[2019-10-26] MEDS: sodium chloride 0.9% 1,000 ML 75 ML IV (11:55)
[2019-10-26 14:27] VITALS: BP 123/48; PULSE 73; RESP 25; TEMP 36.3; O2SAT 94
--- NOTE | 2019-10-26 16:27 | PC.NURSE ---
patient has reported she feels alot better today than she has patient color and affect is greatly improved from yesterday patients appetite has improved this shift.
[2019-10-26 16:36] LABS: Glucose Point of Care 171 mg/dL (70-110)
--- NOTE | 2019-10-26 19:20 | PC.NURSE ---
Received report from Robyn Hutchinson R.N. Patient resting in bed with eyes closed. No distress observed. Fluids running as ordered at 75ml/hr.
[2019-10-26 19:54] VITALS: BP 120/55; PULSE 87; RESP 18; TEMP 36.6; O2SAT 93
[2019-10-26] MEDS: acetaminophen 325 mg Tablet 650 MG PO (21:19)
[2019-10-26] MEDS: insulin glargine 100 units/1 mL 15 UNIT SUBCUT (21:20)
[2019-10-26 21:26] LABS: Glucose Point of Care 195 mg/dL (70-110)
--- NOTE | 2019-10-26 22:51 | PC.NURSE ---
Patient IV in left upper arm has infiltrated. IV fluids stopped at this time. Requested ultrasound guided IV access through JAIRO Pickenstextile bag sewer.
[2019-10-27] VITALS: BP 98/49; PULSE 58; RESP 22; TEMP 36.3; O2SAT 92
--- NOTE | 2019-10-27 01:52 | PC.NURSE ---
Dr Ramirez in to see patient and place new IV. JAIRO Pickenspatient services coordinator at bedside. Old IV removed. New IV placed to left inner upper arm. Patient tolerated fair.
[2019-10-27] MEDS: dilTIAZem 30 mg Tablet PO ×4 (03:28→20:56)
[2019-10-27] MEDS: sodium chloride 0.9% 1,000 ML 75 ML IV ×2 (03:31→18:30)
[2019-10-27 04:00] VITALS: BP 126/55; PULSE 74; RESP 22; TEMP 36.6; O2SAT 96
[2019-10-27] MEDS: lanolin oint 7 gm 1 APPLIC TOPICAL (04:54)
[2019-10-27 05:33] LABS: Basophils % 0.3 %; Eosinophils % 0.3 %; Hematocrit 26.8 % (37.0-47.0); Hemoglobin 9.1 g/dL (11.5-15.3); Lymphocytes # 1.2 10^3/uL (0.8-4.8); Lymphocytes % 20.5 %; Mean Corpuscular Hemoglobin 26.5 pg (28.0-34.0); Mean Corpuscular Volume 78.1 fL (81-99); Monocytes # 0.8 10^3/uL (0.2-0.9); Neutrophils # 3.44 10^3/uL (1.8-7.7); Neutrophils % 58.8 %; Nucleated Red Blood Cells % 0 %; Platelet Count 58 10^3/cmm (130-400); Red Blood Count 3.43 10^6/uL (4.1-5.3); Red Cell Distribution Width 16.8 % (12.1-15.1); White Blood Count 5.9 10^3/uL (4.0-10.0)
[2019-10-27 05:41] LABS: Albumin Level 2.2 g/dL (3.5-5.2)
[2019-10-27 05:47] LABS: Anion Gap 11.9 (5-19); Blood Urea Nitrogen 38 mg/dL (8-23); Calcium 7.2 mg/dL (8.5-10.5); Carbon Dioxide 18 mmol/L (22-29); Chloride 103 mmol/L (98-107); Glucose 99 mg/dL (65-115); Osmolality Calculated 266 mOsm/kg (285-295); Potassium 3.9 mmol/L (3.5-5.1); Sodium 129 mmol/L (136-145)
[2019-10-27 06:05] LABS: Slide Review Slide Review Perform
[2019-10-27 06:48] LABS: Glucose Point of Care 116 mg/dL (70-110)
[2019-10-27 07:29] VITALS: BP 114/53; PULSE 65; RESP 18
[2019-10-27 08:29] VITALS: BP 114/53; PULSE 74; RESP 18
[2019-10-27] MEDS: potassium chloride oral liq 20 mEq/15 mL UDC 40 MEQ PO (09:26)
[2019-10-27] MEDS: famotidine 20 mg/2 mL INJ IVP ×2 (09:26→20:56)
--- NOTE | 2019-10-27 09:38 | PC.CHAP ---
Pastoral Care Encounter/Spiritual Assessment Type of Contact [] Declined jack frame tender visit [] Patient/Family/Request visit [] Outpatient visit [x] Follow-up visit [] Physician referral [] Code/Alert [x] Routine visit [] Staff referral [] Actively dying [] Patient sleeping [] Family support [] [] Out of room [] Palliative care [] [] Receiving care in room [] Pre-surgical visit [] Trauma [] Long length of stay [] ICU visit [] Other: Relational/Emotional Strength [] Patient feels connected with others/family/visitors/staff [] Distress [] Loneliness/isolation [] Abandonment Spirituality of Patient [] Person of Amber [] Attends Pentecostalism of their Amber [] Believes in Prayer [] Reads Bible or Zoroastrianism materials [] There are Spiritual issues to be addressed Cigarette Seller Interventions [x] Prayer [x] Active listening [x] Non-anxious presence [x] Spiritual/emotional support [] Crisis/trauma care [] Spiritual counseling [] Bereavement support [] Provided bereavement packet [] Provided Bible/devotional materials [] Provided toy/stuffed animal, coloring book to patient or family member [] Provided Communion [] Anointing/[place] [] Salvation [x] Completed spiritual assessment [] Other: Impact on Illness or Injury [] Angry [] Fearful [] Anxious [] Often cries [] Exhaustion [] Unable to work [] Unable to attend latter day [] Unable to walk/stand [] Unable to read [] Unable to drive [] Unable to eat/drink [] Unable to sleep [] Unable to be with family [] Patient intubated [] Other: Sum patient feeling strong... Time spent with patient 5 min
--- NOTE | 2019-10-27 09:48 | PC.SOCIAL ---
Pg 2 IMM Explained to pt Pg 2 IMM. Pt verbally understands. No questions voiced. Provided pt a copy. Signed, dated, & timed a copy, & placed in pt's chart.
--- NOTE | 2019-10-27 09:59 | PC.NURSE ---
0830 patient assisted to [facility] patient was able to void a small amount. Patient assisted to sit up in chair for a bit patient sat in chair for approx. 1 hour. patient denies any pain.
--- NOTE | 2019-10-27 10:02 | PC.NURSE ---
Call received from Dr Wilson office patient PCP. Patient asked if it was ok for them to have information. Dr Wilson office given an update on patient this nurse reporting that she was feeling well this am although didn't feel well last evening. office staff asked about discharge. Plan this nurse reported no plans at this time.
--- NOTE | 2019-10-27 10:11 | P.PN_ITS ---
Subjective Subjective: Interval history: Had 400 mL urine output overnight, hemodynamically stable, on room air, stable hemoglobin and platelet count, improved renal function and hyponatremia. Corrected calcium is 8.6. Sitting in chair by bedside, to be drinking more today, appetite in terms of solid food remains diminished. Noted to be febrile with a temp of 101.6 F this evening, will order blood cultures, initial UA was unremarkable, will repeat this. We will hold off on antibiotic treatment at this time unless consistent fever. Received a call from Dr. Mack who is patient's PCP, updated him on patient's clinical status. Medications: Reviewed: Yes Medication Review Details: Active Medications Generic Name Dose Route Start Last Admin Trade Name Freq PRN Reason Stop Dose Admin Acetaminophen 650 mg 10/26/19 20:31 10/26/19 21:19 Tylenol PO 650 mg Q4H PRN Administration MILD PAIN OR INCR EASE TEMP Dextrose 25 ml 10/24/19 05:08 D50w IVP ONCE PRN hypoglycemia prot ocol Protocol Dextrose 50 ml 10/24/19 05:08 D50w IVP PRN PRN hypoglycemia prot ocol Protocol Diltiazem HCl 30 mg 10/25/19 09:45 10/27/19 09:26 Cardizem PO 30 mg Q6H KURT Administration Famotidine 20 mg 10/24/19 09:15 10/27/19 09:26 Pepcid Inj IVP 20 mg Q12H KURT Administration Glucagon 1 mg 10/24/19 05:08 Glucagen IM ONCE PRN Adult Acute Hypog lycemia Prot. Protocol Heparin Sodium (Be ef Lung) 5,000 unit 10/24/19 05:08 10/24/19 21:38 Heparin SUBCUT 5,000 unit Q8H KURT Administration Sodium Chloride 1,000 mls @ 75 ml s/hr 10/24/19 05:08 10/27/19 03:31 Sodium Chloride 0.9% IV 75 mls/hr .[id number] KURT Administration Dextrose 500 mls @ 100 mls /hr 10/24/19 05:08 D5w IV ONCE PRN Adult Acute Hypog lycemia Prot Protocol Insulin Aspart 0 unit 10/24/19 08:00 10/27/19 07:29 Novolog SUBCUT Not Given WM&BEDTIME KURT Protocol Insulin Glargine 15 unit 10/24/19 21:00 10/26/19 21:20 Lantus SUBCUT 15 unit BEDTIME KURT Administration Lanolin 1 applic 10/27/19 04:49 10/27/19 04:54 Lanolin Oint TOPICAL 1 applic PRN PRN Administration DRYNESS Potassium Chloride 40 meq 10/26/19 09:00 10/27/19 09:26 Potassium Chlori de Oral Liquid PO 40 meq DAILY KURT Administration Senna/Docusate Sod ium 1 tab 10/24/19 05:08 Senna-S PO DAILY PRN CONSTIPATION No Known Allergies Allergy (Verified 10/24/19 02:19) Vitals/I&O/Wt Last Vital Signs Temp 97.9 F 10/27/19 04:00 Pulse 74 10/27/19 08:29 Resp 18 10/27/19 08:29 BP 114/53 10/27/19 08:29 Pulse Ox 96 10/27/19 04:00 10/26/19 10/27/19 10/27/19 22:59 06:59 14:59 Intake Total 240 / 1480 961.25 / 2441.25 240 / 240 Output Total 400 / 800 75 / 75 Balance 240 / 1080 561.25 / 1641.25 165 / 165 Weight last 48 hrs Weight 56.563 kg Physical Exam Const: COMMON NORMALS: no acute distress, patient oriented x3 and alert GENERAL APPEARANCE: cooperative and comfortable ORIENTATION/CONSCIOUSNESS: Yes awake OTHER: -looks appropriate for age HENMT: COMMON NORMALS: normocephalic, atraumatic, hearing grossly normal bilaterally and moist oral mucous membranes HEAD & SCALP: normocephalic and atraumatic TEETH & GINGIVA: Yes dentures Eye: COMMON NORMALS: Equal, round and reactive pupils present, EOMs intact bilaterally and conjunctivae normal CONJUNCTIVA: Yes conjunctivae normal PUPIL: Yes Equal, round and reactive pupils present Neck/C-Spine: COMMON NORMALS: full ROM GENERAL: Yes normal visual inspection and Yes trachea midline Resp: COMMON NORMALS: normal respiratory effort, No retractions, No use of accessory muscles and clear to auscultation bilaterally EFFORT & INSPECTION: Yes able to speak in complete sentences, Yes symmetric chest movement and No tachypneic AUSCULTATION: clear to auscultation bilaterally Cardio: COMMON NORMALS: regular rate, regular rhythm, S1 normal heart sound present, S2 normal heart sound present and No murmurs present (Cardio) RATE: regular rate RHYTHM: regular rhythm HEART SOUNDS: S1 normal heart sound present and S2 normal heart sound present GI: COMMON NORMALS: Normal to inspection, nondistended, normoactive bowel sounds present, Soft to palpation and non-tender PALPATION: Yes Soft to palpation Extremity: COMMON NORMALS: normal to inspection, full ROM and no clubbing, cyanosis or edema; negative for no pedal edema Neuro: COMMON NORMALS: patient oriented x3, moves all extremities, no focal motor deficits and no sensory deficits noted SENSORIUM/ORIENTATION: Yes alert Psych: COMMON NORMALS: mental status grossly normal, Normal thought process present, cooperative, normal affect and speech normal SPEECH: Yes normal speech THOUGHT PROCESS: Normal thought process present Skin: COMMON NORMALS: no rashes or lesions noted, no jaundice, no petechiae and no mottling GENERAL SKIN EXAM: no rashes or lesions noted Data : 10/27/19 04:06 10/27/19 04:06 A&P Assessment and plan (1) Narrow complex tachycardia: -telemetry monitoring -rate controlled, NSR; weaned off Cardizem drip, on oral Cardizem -continue to monitor vital signs; stable -Anticoagulation with heparin drip, noted worsening anemia and continued thrombocytopenia so will d/c heparin drip. Does not seem to be a good candidate for long wall shear operator anticoagulation but perhaps if stability or improvement in platelet count and Hg, may consider initiation of Eliquis or at least aspirin -will need long wall shear operator anticoagulation, [id number] score of 4 -Echo: EF=65%, no RWMA, trace TR Status: Acute (2) Acute kidney injury: -Noted acute renal impairment which is likely due to poor oral intake and subsequent dehydration, medication induced -Continue to monitor renal function, avoid nephrotoxins, renally dose meds -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; baseline Cr is around 1.5-1.7 though has been as high as 2.0 in the past; renal function improving -gentle IVF hydration -UA negative -hold ACEi and diuretics -uric acid-11.2 Status: Acute (3) Hyperglycemia due to diabetes mellitus: -Accuchecks, ISS and long acting insulin if oral intake improving -hypoglycemia precautions Status: Acute (4) Hyponatremia: -Sodium level improving, continue IV fluid hydration Status: Acute (5) Diabetes: -IDDM type II; A1c-7.2 -continue accucheks, ISS, hypoglycemia precautions Status: Chronic Qualifiers: Chronic kidney disease stage: stage 3 (moderate) Diabetes mellitus complication detail: with chronic kidney disease Diabetes mellitus complication status: with kidney complications Diabetes mellitus correction insulin use: with long wall shear operator use Diabetes mellitus type: type 2 Qualified Code(s): E11.22 - Type 2 diabetes mellitus with diabetic chronic kidney disease; N18.3 - Chronic kidney disease, stage 3 (moderate); Z79.4 - skilled nursing (current) use of insulin (6) GERD (gastroesophageal reflux disease): -on famotidine Status: Chronic Qualifiers: Esophagitis presence: esophagitis presence not specified Qualified Code(s): K21.9 - Gastro-esophageal reflux disease without esophagitis (7) Hypertension: -normotensive currently, continue to monitor vital signs -hold ACEi, diuretics due to renal impairment -hold CCB to prevent hypotension with limited oral intake Status: Chronic Qualifiers: Hypertension type: essential hypertension Qualified Code(s): I10 - Essential (primary) hypertension Additional A&P Information -Previously noted to have a left ureteral obstruction with mild to moderate left hydronephrosis and proximal left hydroureter status post left ureteral stent placement that was removed by Dr. Castillo on 07/31 -Cholelithiasis, had prior workup including US and MRCP in 06/2019 with no noted cholecystitis or choledocholithiasis -hx of uterine cancer s/p hysterectomy -Advanced age -Constipation, fecal retention on imaging; bowel regimen -Chronic lumbar spine compression fractures -Acute thrombocytopenia; previous platelet counts wnl; off heparin drip -Hypocalcemia; corrected Ca-8.1 -Temperature with T-max of 101.6 F this evening; will order repeat UA, blood culture. Will hold off on antibiotic treatment unless consistent fever -GI ppx with famotidine -DVT ppx with SCDs, no AC due to anemia and thrombocytopenia -fall precautions -Dispo: home -Code status: FULL code Attestations Medical Necessity Statement*: Patient requires hospitalization for continued management of hyponatremia, remains on IV fluid hydration. Time Spent in Patient Care: 16 - 35 minutes (>than 50% of time spent in counselling and/or direct pt care on unit) . Coding Level of Care Code Acute Executive Chairman [employer] for Chg Fwd Exam Comprehensive Diagnoses Narrow complex tachycardia I47.1 Acute kidney injury N17.9 Hyperglycemia due to diabetes mellitus E11.65 Hyponatremia E87.1 Diabetes E11.22; N18.3; Z79.4 Chronic kidney disease stage: stage 3 (moderate) Diabetes mellitus complication detail: with chronic kidney disease Diabetes mellitus complication status: with kidney complications Diabetes mellitus correction insulin use: with long wall shear operator use Diabetes mellitus type: type 2 GERD (gastroesophageal reflux disease) K21.9 Esophagitis presence: esophagitis presence not specified Hypertension I10 Hypertension type: essential hypertension
--- NOTE | 2019-10-27 11:30 | PC.NURSE ---
Dr santizo at bedside for assessment and discussion of POC
[2019-10-27 12:02] LABS: Glucose Point of Care 198 mg/dL (70-110)
[2019-10-27 17:13] LABS: Glucose Point of Care 200 mg/dL (70-110)
[2019-10-27] MEDS: acetaminophen 325 mg Tablet 650 MG PO (18:47)
[2019-10-27 18:55] VITALS: BP 130/67; PULSE 86; RESP 27
--- NOTE | 2019-10-27 19:07 | PC.NURSE ---
notified Dr Starr that patient has spiked a temp of 101.6 Ro to put in orders instructions to give Tylenol
[2019-10-27 19:43] VITALS: BP 106/57; PULSE 80; RESP 21; TEMP 38.3; O2SAT 98
--- NOTE | 2019-10-27 20:18 | PC.NURSE ---
Patient mildly confused this evening. Easily reoriented. Current improved temperature 100.9 F orally after receiving Tylenol. Patient c/o generalized body aches. Informed Dr Grey and received directions to continue Tylenol as ordered. Next dose of Tylenol is due a 2300.
[2019-10-27 20:34] LABS: Glucose Point of Care 174 mg/dL (70-110)
[2019-10-27] MEDS: insulin glargine 100 units/1 mL 15 UNIT SUBCUT (20:55)
[2019-10-27 22:39] LABS: Add Urine Microscopic? YES; Bilirubin Urine Neg (NEGATIVE); Blood Urine Neg (Negative); Glucose Urine UA Norm (Normal); Ketones Urine Negative (Negative); Leukocyte Esterase Urine Negative (Negative); Nitrate Urine Negative (Negative); Protein Urine Neg (Negative); Urine Appearance Hazy (CLEAR); Urine Color Yellow (Yellow); Urobilinogen Urine Norm (Negative); pH Urine 6 (5-7)
[2019-10-27 22:47] LABS: Bacteria Urine TRACE; Squamous Epithelial Cell Urine 15-25 (0-5)
[2019-10-27 22:48] LABS: Add Urine Culture? No
[2019-10-28] VITALS: BP 122/59; PULSE 65; RESP 24; TEMP 36.6; O2SAT 96
[2019-10-28] MEDS: dilTIAZem 30 mg Tablet PO ×4 (03:12→21:08)
[2019-10-28 03:19] VITALS: BP 126/59; PULSE 71; RESP 22; TEMP 36.9; O2SAT 96
--- NOTE | 2019-10-28 03:21 | PC.NURSE ---
Patient denies any complaints at this time. Currently Afebrile. Patient able to stand and transfer to BSC with standby assist at this time. Patient states, I do feel better. No distress observed with noted increase in strength.
[2019-10-28 04:41] LABS: Basophils % 0.2 %; Eosinophils % 0.4 %; Hematocrit 25.2 % (37.0-47.0); Hemoglobin 8.7 g/dL (11.5-15.3); Lymphocytes # 1.2 10^3/uL (0.8-4.8); Lymphocytes % 23.8 %; Mean Corpuscular HGB Conc 34.5 g/dL (30.0-36.0); Mean Corpuscular Volume 78.3 fL (81-99); Monocytes # 0.7 10^3/uL (0.2-0.9); Monocytes % 13.5 %; Neutrophils # 2.76 10^3/uL (1.8-7.7); Neutrophils % 55.6 %; Nucleated Red Blood Cells % 0 %; Platelet Count 67 10^3/cmm (130-400); Red Blood Count 3.22 10^6/uL (4.1-5.3); Red Cell Distribution Width 17.1 % (12.1-15.1)
[2019-10-28 04:58] LABS: Blood Urea Nitrogen 25 mg/dL (8-23); Calcium 6.7 mg/dL (8.5-10.5); Carbon Dioxide 17 mmol/L (22-29); Chloride 103 mmol/L (98-107); Glucose 64 mg/dL (65-115); Osmolality Calculated 261 mOsm/kg (285-295); Sodium 128 mmol/L (136-145)
[2019-10-28 05:13] LABS: Slide Review Slide Review Perform
[2019-10-28 05:22] LABS: Anion Gap 12.5 (5-19); Potassium 4.5 mmol/L (3.5-5.1)
[2019-10-28 06:48] LABS: Glucose Point of Care 86 mg/dL (70-110)
[2019-10-28 06:49] VITALS: BP 126/63; PULSE 72; RESP 18; TEMP 36.9; O2SAT 97
[2019-10-28] MEDS: sodium chloride 0.9% 1,000 ML 75 ML IV (08:32)
[2019-10-28] MEDS: potassium chloride oral liq 20 mEq/15 mL UDC 40 MEQ PO (08:32)
[2019-10-28] MEDS: famotidine 20 mg/2 mL INJ IVP ×2 (08:33→21:08)
[2019-10-28 10:32] VITALS: BP 120/58; PULSE 73; RESP 26; TEMP 36.7; O2SAT 95
[2019-10-28 11:03] LABS: Glucose Point of Care 149 mg/dL (70-110)
--- NOTE | 2019-10-28 13:35 | P.PN_ITS ---
Subjective Subjective: Interval history: Spiked a temperature of 100 point 9F yesterday evening, has been afebrile since, hemodynamically stable, on room air, had 700 mL urine output overnight with an additional 400 mL so far today. Slight drop in hemoglobin to 8.7 part of which is likely dilutional, sodium of 128, improved renal function. Resting quietly in bed. Medications: Reviewed: Yes Medication Review Details: Active Medications Generic Name Dose Route Start Last Admin Trade Name Freq PRN Reason Stop Dose Admin Acetaminophen 650 mg 10/26/19 20:31 10/27/19 18:47 Tylenol PO 650 mg Q4H PRN Administration MILD PAIN OR INCR EASE TEMP Dextrose 25 ml 10/24/19 05:08 D50w IVP ONCE PRN hypoglycemia prot ocol Protocol Dextrose 50 ml 10/24/19 05:08 D50w IVP PRN PRN hypoglycemia prot ocol Protocol Diltiazem HCl 30 mg 10/25/19 09:45 10/28/19 08:33 Cardizem PO 30 mg Q6H KURT Administration Famotidine 20 mg 10/24/19 09:15 10/28/19 08:33 Pepcid Inj IVP 20 mg Q12H KURT Administration Glucagon 1 mg 10/24/19 05:08 Glucagen IM ONCE PRN Adult Acute Hypog lycemia Prot. Protocol Heparin Sodium (Be ef Lung) 5,000 unit 10/24/19 05:08 10/24/19 21:38 Heparin SUBCUT 5,000 unit Q8H KURT Administration Sodium Chloride 1,000 mls @ 75 ml s/hr 10/24/19 05:08 10/28/19 08:32 Sodium Chloride 0.9% IV 75 mls/hr .[id number] KURT Administration Dextrose 500 mls @ 100 mls /hr 10/24/19 05:08 D5w IV ONCE PRN Adult Acute Hypog lycemia Prot Protocol Insulin Aspart 0 unit 10/24/19 08:00 10/28/19 11:40 Novolog SUBCUT 4 unit WM&BEDTIME KURT Administration Protocol Insulin Glargine 15 unit 10/24/19 21:00 10/27/19 20:55 Lantus SUBCUT 15 unit BEDTIME KURT Administration Lanolin 1 applic 10/27/19 04:49 10/27/19 04:54 Lanolin Oint TOPICAL 1 applic PRN PRN Administration DRYNESS Potassium Chloride 40 meq 10/26/19 09:00 10/28/19 08:32 Potassium Chlori de Oral Liquid PO 40 meq DAILY KURT Administration Senna/Docusate Sod ium 1 tab 10/24/19 05:08 Senna-S PO DAILY PRN CONSTIPATION No Known Allergies Allergy (Verified 10/24/19 02:19) Vitals/I&O/Wt Last Vital Signs Temp 98.0 F 10/28/19 10:32 Pulse 73 10/28/19 10:32 Resp 26 H 10/28/19 10:32 BP 120/58 10/28/19 10:32 Pulse Ox 95 10/28/19 10:32 10/27/19 10/28/19 10/28/19 22:59 06:59 14:59 Intake Total 1100 / 1840 360 / 2200 1420 / 1420 Output Total 300 / 525 300 / 825 400 / 400 Balance 800 / 1315 60 / 1375 1020 / 1020 Physical Exam Const: COMMON NORMALS: no acute distress, patient oriented x3 and alert GENERAL APPEARANCE: cooperative and comfortable ORIENTATION/CONSCIOUSNESS: Yes awake OTHER: -looks appropriate for age HENMT: COMMON NORMALS: normocephalic, atraumatic, hearing grossly normal bilaterally and moist oral mucous membranes HEAD & SCALP: normocephalic and atraumatic TEETH & GINGIVA: Yes dentures Eye: COMMON NORMALS: Equal, round and reactive pupils present, EOMs intact bilaterally and conjunctivae normal CONJUNCTIVA: Yes conjunctivae normal PUPIL: Yes Equal, round and reactive pupils present Neck/C-Spine: COMMON NORMALS: full ROM GENERAL: Yes normal visual inspection and Yes trachea midline Resp: COMMON NORMALS: normal respiratory effort, No retractions, No use of accessory muscles and clear to auscultation bilaterally EFFORT & INSPECTION: Yes able to speak in complete sentences, Yes symmetric chest movement and No tachypneic AUSCULTATION: clear to auscultation bilaterally Cardio: COMMON NORMALS: regular rate, regular rhythm, S1 normal heart sound present, S2 normal heart sound present and No murmurs present (Cardio) RATE: regular rate RHYTHM: regular rhythm HEART SOUNDS: S1 normal heart sound present and S2 normal heart sound present GI: COMMON NORMALS: Normal to inspection, nondistended, normoactive bowel sounds present, Soft to palpation and non-tender PALPATION: Yes Soft to palpation Extremity: COMMON NORMALS: normal to inspection, full ROM and no clubbing, cyanosis or edema; negative for no pedal edema Neuro: COMMON NORMALS: patient oriented x3, moves all extremities, no focal motor deficits and no sensory deficits noted SENSORIUM/ORIENTATION: Yes alert Psych: COMMON NORMALS: mental status grossly normal, Normal thought process present, cooperative, normal affect and speech normal SPEECH: Yes normal speech THOUGHT PROCESS: Normal thought process present Skin: COMMON NORMALS: no rashes or lesions noted, no jaundice, no petechiae and no mottling GENERAL SKIN EXAM: no rashes or lesions noted Data : 10/28/19 03:32 10/28/19 03:32 Micro: Microbiology 10/27/19 18:58 Blood Culture - Preliminary Blood SPECIMEN COLLECTED 10/27/19 19:00 Blood Culture - Preliminary Blood SPECIMEN COLLECTED A&P Assessment and plan (1) Narrow complex tachycardia: -telemetry monitoring -rate controlled, NSR; weaned off Cardizem drip, on oral Cardizem -continue to monitor vital signs; stable -Anticoagulation with heparin drip, noted worsening anemia and continued thrombocytopenia so will d/c heparin drip. Does not seem to be a good candidate for nursing home anticoagulation but perhaps if stability or improvement in platelet count and Hg, may consider initiation of Eliquis or at least aspirin -will need intermediate card tender anticoagulation, [id number] score of 4 -Echo: EF=65%, no RWMA, trace TR Status: Acute (2) Acute kidney injury: -Noted acute renal impairment which is likely due to poor oral intake and subsequent dehydration, medication induced -Continue to monitor renal function, avoid nephrotoxins, renally dose meds -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; baseline Cr is around 1.5-1.7 though has been as high as 2.0 in the past; renal function improving -gentle IVF hydration -UA negative -hold ACEi and diuretics -uric acid-11.2 Status: Acute (3) Hyperglycemia due to diabetes mellitus: -Accuchecks, ISS and long acting insulin if oral intake improving -hypoglycemia precautions Status: Acute (4) Hyponatremia: -Sodium level improving but still lower than normal, continue IV fluid hydration Status: Acute (5) Diabetes: -IDDM type II; A1c-7.2 -continue accucheks, ISS, hypoglycemia precautions Status: Chronic Qualifiers: Chronic kidney disease stage: stage 3 (moderate) Diabetes mellitus complication detail: with chronic kidney disease Diabetes mellitus complication status: with kidney complications Diabetes mellitus intermediate card tender insulin use: with intermediate card tender use Diabetes mellitus type: type 2 Qualified Code(s): E11.22 - Type 2 diabetes mellitus with diabetic chronic kidney disease; N18.3 - Chronic kidney disease, stage 3 (moderate); 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 (6) GERD (gastroesophageal reflux disease): -on famotidine Status: Chronic Qualifiers: Esophagitis presence: esophagitis presence not specified Qualified Code(s): K21.9 - Gastro-esophageal reflux disease without esophagitis (7) Hypertension: -normotensive currently, continue to monitor vital signs -hold ACEi, diuretics due to renal impairment -On oral Cardizem due to atrial flutter Status: Chronic Qualifiers: Hypertension type: essential hypertension Qualified Code(s): I10 - Essential (primary) hypertension Additional A&P Information -Previously noted to have a left ureteral obstruction with mild to moderate left hydronephrosis and proximal left hydroureter status post left ureteral stent placement that was removed by Dr. Castillo on 07/31 -Cholelithiasis, had prior workup including US and MRCP in 06/2019 with no noted cholecystitis or choledocholithiasis -hx of uterine cancer s/p hysterectomy -Advanced age -Constipation, fecal retention on imaging; bowel regimen -Chronic lumbar spine compression fractures -Acute thrombocytopenia; previous platelet counts wnl; off heparin drip; stable platelet count -Hypocalcemia; corrected Ca-8.1 -Has intermittently spike some temperatures and there is noted question of bilateral lower lobe infiltrates on CT scan so we will add empiric oral antibiotic treatment. Blood cultures pending -GI ppx with famotidine -DVT ppx with SCDs, no AC due to anemia and thrombocytopenia -fall precautions -Dispo: home, HH services arranged -Code status: FULL code Attestations Medical Necessity Statement*: Patient requires hospitalization for continued IV fluid hydration secondary to continued hyponatremia with limited oral intake. Time Spent in Patient Care: 16 - 35 minutes (>than 50% of time spent in counselling and/or direct pt care on unit) . Coding Level of Care Code Acute Bunch Breaker for g Fwd Exam Comprehensive Diagnoses Narrow complex tachycardia I47.1 Acute kidney injury N17.9 Hyperglycemia due to diabetes mellitus E11.65 Hyponatremia E87.1 Diabetes E11.22; N18.3; Z79.4 Chronic kidney disease stage: stage 3 (moderate) Diabetes mellitus complication detail: with chronic kidney disease Diabetes mellitus complication status: with kidney complications Diabetes mellitus nursing home insulin use: with nursing home use Diabetes mellitus type: type 2 GERD (gastroesophageal reflux disease) K21.9 Esophagitis presence: esophagitis presence not specified Hypertension I10 Hypertension type: essential hypertension
[2019-10-28 14:32] VITALS: BP 124/56; PULSE 79; RESP 21; TEMP 36.7; O2SAT 96
[2019-10-28] MEDS: amoxicillin-clav 875-125 mg Tablet 1 TAB PO (14:56)
[2019-10-28 16:56] LABS: Glucose Point of Care 111 mg/dL (70-110)
--- NOTE | 2019-10-28 17:06 | PC.NURSE ---
DR. DEGROOT NOTIFIED OF PATIENT TAKING FIRST AUGMENTIN DOSE AT 1456 AND NEXT DOSE BEING DUE AT 1800, PHYSICIAN ASKED TO HOLD 1800 DOSE.
[2019-10-28 20:00] VITALS: BP 124/56; PULSE 88; RESP 21; TEMP 36.7
[2019-10-28 20:48] LABS: Glucose Point of Care 238 mg/dL (70-110)
[2019-10-28] MEDS: insulin glargine 100 units/1 mL 15 UNIT SUBCUT (21:09)
[2019-10-28] MEDS: sodium chloride 0.9% 1,000 ML 100 ML IV (21:10)
[2019-10-29] VITALS (7 sets, daily range): BP systolic 127–145; BP diastolic 54–76; PULSE 67–86; RESP 18–28; TEMP 36.8–37.8; O2SAT 95–99
[2019-10-29] MEDS: dilTIAZem 30 mg Tablet PO (02:57)
[2019-10-29 03:57] LABS: Basophils % 0.2 %; Eosinophils % 0.4 %; Hematocrit 24.7 % (37.0-47.0); Hemoglobin 8.5 g/dL (11.5-15.3); Lymphocytes # 1.1 10^3/uL (0.8-4.8); Lymphocytes % 24.6 %; Mean Corpuscular HGB Conc 34.4 g/dL (30.0-36.0); Mean Corpuscular Hemoglobin 26.6 pg (28.0-34.0); Mean Corpuscular Volume 77.4 fL (81-99); Monocytes # 0.6 10^3/uL (0.2-0.9); Monocytes % 13.8 %; Neutrophils # 2.59 10^3/uL (1.8-7.7); Neutrophils % 55.8 %; Nucleated Red Blood Cells % 0 %; Platelet Count 57 10^3/cmm (130-400); Red Blood Count 3.19 10^6/uL (4.1-5.3); Red Cell Distribution Width 17.2 % (12.1-15.1); White Blood Count 4.6 10^3/uL (4.0-10.0)
[2019-10-29 04:45] LABS: Slide Review Slide Review Perform
[2019-10-29 06:27] LABS: Glucose Point of Care 90 mg/dL (70-110)
[2019-10-29 08:00] LABS: Anion Gap 12.9 (5-19); Blood Urea Nitrogen 19 mg/dL (8-23); Calcium 7.2 mg/dL (8.5-10.5); Carbon Dioxide 14 mmol/L (22-29); Chloride 107 mmol/L (98-107); Glucose 89 mg/dL (65-115); Osmolality Calculated 264 mOsm/kg (285-295); Potassium 4.9 mmol/L (3.5-5.1); Sodium 129 mmol/L (136-145)
[2019-10-29] MEDS: sodium chloride 0.9% 1,000 ML 100 ML IV (08:01)
--- NOTE | 2019-10-29 08:28 | P.PN_ITS ---
Subjective Subjective: Interval history: Had 550 mL urine output overnight, Na-129 today, continued improvement in renal function. Spiked a low grade temp of 100 F around midnight, has been afebrile since, vital signs otherwise normal. Had a BM earlier this AM. Slight drop in hemoglobin (8.7->8.5), remains thrombocytopenic. Resting quietly in bed, no apparent distress currently, more alert today, would like me to speak with her Miguel and update him accordingly. Medications: Reviewed: Yes Medication Review Details: Active Medications Generic Name Dose Route Start Last Admin Trade Name Freq PRN Reason Stop Dose Admin Acetaminophen 650 mg 10/26/19 20:31 10/27/19 18:47 Tylenol PO 650 mg Q4H PRN Administration MILD PAIN OR INCR EASE TEMP Amoxicillin/Clavul anate Potassium 1 tab 10/28/19 13:45 10/28/19 17:05 Augmentin 875-12 5 Mg PO Not Given BID KURT Protocol Dextrose 25 ml 10/24/19 05:08 D50w IVP ONCE PRN hypoglycemia prot ocol Protocol Dextrose 50 ml 10/24/19 05:08 D50w IVP PRN PRN hypoglycemia prot ocol Protocol Diltiazem HCl 30 mg 10/25/19 09:45 10/29/19 02:57 Cardizem PO 30 mg Q6H KURT Administration Famotidine 20 mg 10/24/19 09:15 10/28/19 21:08 Pepcid Inj IVP 20 mg Q12H KURT Administration Glucagon 1 mg 10/24/19 05:08 Glucagen IM ONCE PRN Adult Acute Hypog lycemia Prot. Protocol Heparin Sodium (Be ef Lung) 5,000 unit 10/24/19 05:08 10/24/19 21:38 Heparin SUBCUT 5,000 unit Q8H KURT Administration Sodium Chloride 1,000 mls @ 100 m ls/hr 10/24/19 05:08 10/29/19 08:01 Sodium Chloride 0.9% IV 100 mls/hr .Q10H KURT Administration Dextrose 500 mls @ 100 mls /hr 10/24/19 05:08 D5w IV ONCE PRN Adult Acute Hypog lycemia Prot Protocol Insulin Aspart 0 unit 10/24/19 08:00 10/29/19 07:10 Novolog SUBCUT Not Given WM&BEDTIME KRUT Protocol Insulin Glargine 15 unit 10/24/19 21:00 10/28/19 21:09 Lantus SUBCUT 15 unit BEDTIME KURT Administration Lanolin 1 applic 10/27/19 04:49 10/27/19 04:54 Lanolin Oint TOPICAL 1 applic PRN PRN Administration DRYNESS Potassium Chloride 40 meq 10/26/19 09:00 10/28/19 08:32 Potassium Chlori de Oral Liquid PO 40 meq DAILY KURT Administration Senna/Docusate Sod ium 1 tab 10/24/19 05:08 Senna-S PO DAILY PRN CONSTIPATION No Known Allergies Allergy (Verified 10/24/19 02:19) Vitals/I&O/Wt Last Vital Signs Temp 98.7 F 10/29/19 06:52 Pulse 77 10/29/19 06:52 Resp 23 H 10/29/19 06:52 BP 132/66 10/29/19 06:52 Pulse Ox 96 10/29/19 06:52 10/28/19 10/29/19 10/29/19 22:59 06:59 14:59 Intake Total 795 / 2660 1240 / 1240 Output Total 400 / 800 450 / 1250 200 / 200 Balance 395 / 1860 -450 / 1410 1040 / 1040 Physical Exam Const: COMMON NORMALS: no acute distress, patient oriented x3 and alert GENERAL APPEARANCE: cooperative and comfortable ORIENTATION/CONSCIOUSNESS: Yes awake OTHER: -looks appropriate for age HENMT: COMMON NORMALS: normocephalic, atraumatic, hearing grossly normal bilat erally and moist oral mucous membranes HEAD & SCALP: normocephalic and at raumatic TEETH & GINGIVA: Yes dentures Eye: COMMON NORMALS: Equal, round and reactive pupils present, EOMs intact bilaterally and conjunctivae normal CONJUNCTIVA: Yes conjunctivae normal PUPIL: Yes Equal, round and reactive pupils present Neck/C-Spine: COMMON NORMALS: full ROM GENERAL: Yes normal visual inspection and Yes trachea midline Resp: COMMON NORMALS: normal respiratory effort, No retractions, No use of accessory muscles and clear to auscultation bilaterally EFFORT & INSPECTION: Yes able to speak in complete sentences, Yes symmetric chest movement and No tachypneic AUSCULTATION: clear to auscultation bilaterally Cardio: COMMON NORMALS: regular rate, regular rhythm, S1 normal heart sound present, S2 normal heart sound present and No murmurs present (Cardio) RATE: regular rate RHYTHM: regular rhythm HEART SOUNDS: S1 normal heart sound present and S2 normal heart sound present GI: COMMON NORMALS: Normal to inspection, nondistended, normoactive bowel sounds present, Soft to palpation and non-tender PALPATION: Yes Soft to pal pation Extremity: COMMON NORMALS: normal to inspection, full ROM and no clubbing, cyanosis or edema; negative for no pedal edema Neuro: COMMON NORMALS: patient oriented x3, moves all extremities, no focal motor deficits and no sensory deficits noted SENSORIUM/ORIENTATION: Yes alert Psych: COMMON NORMALS: mental status grossly normal, Normal thought process present, cooperative, normal affect and speech normal SPEECH: Yes normal speech THOUGHT PROCESS: Normal thought process present Skin: COMMON NORMALS: no rashes or lesions noted, no jaundice, no petechiae and no mottling GENERAL SKIN EXAM: no rashes or lesions noted Data : 10/29/19 03:38 10/29/19 07:30 Micro: Microbiology 10/27/19 19:00 Blood Culture - Preliminary Blood NEGATIVE TO DATE 10/27/19 18:58 Blood Culture - Preliminary Blood NEGATIVE TO DATE A&P Assessment and plan (1) Narrow complex tachycardia: -telemetry monitoring -rate controlled, NSR; off Cardizem drip, on oral Cardizem -continue to monitor vital signs; stable -Anticoagulation with heparin drip discontinued due to noted worsening anemia and continued thrombocytopenia. Does not seem to be a good candidate for rn long term care anticoagulation but perhaps if stability or improvement in platelet count and Hg, may consider initiation of Eliquis or at least aspirin -would benefit from long-term anticoagulation, [id number] score of 4 -Echo: EF=65%, no RWMA, trace TR Status: Resolved (2) Acute kidney injury: -Noted acute renal impairment which is likely due to poor oral intake and subsequent dehydration, medication induced -Continue to monitor renal function, avoid nephrotoxins, renally dose meds. 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 Current level may become new baseline Status: Acute (5) Diabetes: -IDDM type II; A1c-7.2 -continue accucheks, ISS, hypoglycemia precautions Status: Chronic Qualifiers: Chronic kidney disease stage: stage 3 (moderate) Diabetes mellitus complication detail: with chronic kidney disease Diabetes mellitus complication status: with kidney complications Diabetes mellitus rn long term care insulin use: with rn long term care use Diabetes mellitus type: type 2 Qualified Code(s): E11.22 - Type 2 diabetes mellitus with diabetic chronic kidney disease; N18.3 - Chronic kidney disease, stage 3 (moderate); 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 (6) GERD (gastroesophageal reflux disease): -on famotidine Status: Chronic Qualifiers: Esophagitis presence: esophagitis presence not specified Qualified Code(s): K21.9 - Gastro-esophageal reflux disease without esophagitis (7) Hypertension: -normotensive currently, continue to monitor vital signs -hold ACEi, diuretics due to renal impairment -On oral Cardizem due to atrial flutter Status: Chronic Qualifiers: Hypertension type: essential hypertension Qualified Code(s): I10 - Essential (primary) hypertension Additional A&P Information -Previously noted to have a left ureteral obstruction with mild to moderate left hydronephrosis and proximal left hydroureter status post left ureteral stent placement that was removed by Dr. Castillo on 07/31 -Cholelithiasis, had prior workup including US and MRCP in 06/2019 with no noted cholecystitis or choledocholithiasis -hx of uterine cancer s/p hysterectomy -Advanced age -Constipation, fecal retention on imaging; bowel regimen -Chronic lumbar spine compression fractures -Acute thrombocytopenia; previous platelet counts wnl; off heparin drip; stable platelet count -Hypocalcemia; corrected Ca-8.6 -Has intermittently spike some temperatures and there is noted question of bilateral lower lobe infiltrates on CT scan so we will add empiric oral antibiotic treatment. Blood cultures prelim negative. -Noted intermittent confusion, primarily short-term memory, sometimes forgets that her has visited her while here; suspect some degree of dementia -GI ppx with famotidine -DVT ppx with SCDs, no AC due to anemia and thrombocytopenia -fall precautions -Dispo: home, HH services arranged -Code status: FULL code -if stability in Na, Hg and platelet count as well as no temps in the next 24 hrs, may be able to d/c tomorrow Attestations Medical Necessity Statement*: Patient requires hospitalization for continued management of hyponatremia, thrombocytopenia, anemia, repeat labs in AM, needs to be afebrile x 24 hrs. Time Spent in Patient Care: 16 - 35 minutes (>than 50% of time spent in counselling and/or direct pt care on unit) . 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[employer] [facility] [employer] Fwd Exam Comprehensive Diagnoses Narrow complex tachycardia I47.1 Acute kidney injury N17.9 Hyperglycemia due to diabetes mellitus E11.65 Hyponatremia E87.1 Diabetes E11.22; N18.3; Z79.4 Chronic kidney disease stage: stage 3 (moderate) Diabetes mellitus complication detail: with chronic kidney disease Diabetes mellitus complication status: with kidney complications Diabetes mellitus long-term insulin use: with long-term use Diabetes mellitus type: type 2 GERD (gastroesophageal reflux disease) K21.9 Esophagitis presence: esophagitis presence not specified Hypertension I10 Hypertension type: essential hypertension
--- NOTE | 2019-10-29 08:49 | DCPLANNER ---
Pg 2 of IM updated and reviewed with pt. No questions, copy provided.
[2019-10-29] MEDS: potassium chloride oral liq 20 mEq/15 mL UDC 40 MEQ PO (09:49)
[2019-10-29] MEDS: amoxicillin-clav 875-125 mg Tablet 1 TAB PO ×2 (09:50→18:03)
[2019-10-29] MEDS: famotidine 20 mg/2 mL INJ IVP ×2 (09:50→20:44)
[2019-10-29 11:28] LABS: Glucose Point of Care 151 mg/dL (70-110)
[2019-10-29 16:07] LABS: Glucose Point of Care 116 mg/dL (70-110)
[2019-10-29 20:20] LABS: Glucose Point of Care 165 mg/dL (70-110)
[2019-10-29] MEDS: insulin glargine 100 units/1 mL 15 UNIT SUBCUT (20:44)
[2019-10-30 03:52] VITALS: BP 135/72; PULSE 85; RESP 21; TEMP 36.8; O2SAT 96
[2019-10-30 06:38] LABS: Glucose Point of Care 103 mg/dL (70-110)
[2019-10-30 07:04] LABS: Basophils % 0.4 %; Eosinophils % 0.4 %; Hematocrit 25.7 % (37.0-47.0); Hemoglobin 8.6 g/dL (11.5-15.3); Lymphocytes # 1.6 10^3/uL (0.8-4.8); Lymphocytes % 30.8 %; Mean Corpuscular HGB Conc 33.5 g/dL (30.0-36.0); Mean Corpuscular Hemoglobin 26.9 pg (28.0-34.0); Mean Corpuscular Volume 80.3 fL (81-99); Mean Platelet Volume 11.2 fL (7.4-10.4); Monocytes # 0.7 10^3/uL (0.2-0.9); Monocytes % 13.6 %; Neutrophils # 2.62 10^3/uL (1.8-7.7); Neutrophils % 50.7 %; Nucleated Red Blood Cells % 0 %; Platelet Count 113 10^3/cmm (130-400); Red Cell Distribution Width 17.8 % (12.1-15.1); White Blood Count 5.2 10^3/uL (4.0-10.0)
[2019-10-30 07:05] VITALS: BP 129/65; PULSE 78; RESP 24; TEMP 37; O2SAT 97
[2019-10-30 07:16] LABS: Alanine Aminotransferase 30 U/L (0-33); Albumin Level 2.1 g/dL (3.5-5.2); Alkaline Phosphatase 85 IU/L (35-105); Anion Gap 15.2 (5-19); Aspartate Amino Transferase 38 U/L (0-32); Blood Urea Nitrogen 15 mg/dL (8-23); Calcium 6.9 mg/dL (8.5-10.5); Carbon Dioxide 14 mmol/L (22-29); Chloride 106 mmol/L (98-107); Globulin 4.3 g/dL (1.3-4.6); Glucose 107 mg/dL (65-115); Osmolality Calculated 267 mOsm/kg (285-295); Potassium 5.2 mmol/L (3.5-5.1); Sodium 130 mmol/L (136-145); Total Bilirubin 0.5 mg/dL (0.15-1.2); Total Protein 6.4 g/dL (6.6-8.7)
[2019-10-30 08:01] LABS: Slide Review Slide Review Perform
[2019-10-30] MEDS: potassium chloride oral liq 20 mEq/15 mL UDC 40 MEQ PO (08:30)
[2019-10-30] MEDS: amoxicillin-clav 875-125 mg Tablet 1 TAB PO ×2 (08:30→17:04)
[2019-10-30] MEDS: famotidine 20 mg/2 mL INJ IVP ×2 (08:31→20:56)
[2019-10-30 10:28] VITALS: BP 147/67; PULSE 73; RESP 26; TEMP 36.9; O2SAT 99
[2019-10-30 11:14] LABS: Glucose Point of Care 144 mg/dL (70-110)
[2019-10-30 14:41] VITALS: BP 150/64; PULSE 77; RESP 17; TEMP 36.8; O2SAT 98
[2019-10-30 16:15] LABS: Glucose Point of Care 141 mg/dL (70-110)
--- NOTE | 2019-10-30 16:20 | PM.PN ---
Subjective Subjective: Interval history: no acute overnight events Medications: Reviewed: Yes Medication Review Details: Active Medications Generic Name Dose Route Start Last Admin Trade Name Freq PRN Reason Stop Dose Admin Acetaminophen 650 mg 10/26/19 20:31 10/27/19 18:47 Tylenol PO 650 mg Q4H PRN Administration MILD PAIN OR INCR EASE TEMP Amoxicillin/Clavul anate Potassium 1 tab 10/28/19 13:45 10/28/19 17:05 Augmentin 875-12 5 Mg PO Not Given BID KURT Protocol Dextrose 25 ml 10/24/19 05:08 D50w IVP ONCE PRN hypoglycemia prot ocol Protocol Dextrose 50 ml 10/24/19 05:08 D50w IVP PRN PRN hypoglycemia prot ocol Protocol Diltiazem HCl 30 mg 10/25/19 09:45 10/29/19 02:57 Cardizem PO 30 mg Q6H KURT Administration Famotidine 20 mg 10/24/19 09:15 10/28/19 21:08 Pepcid Inj IVP 20 mg Q12H KURT Administration Glucagon 1 mg 10/24/19 05:08 Glucagen IM ONCE PRN Adult Acute Hypog lycemia Prot. Protocol Heparin Sodium (Be ef Lung) 5,000 unit 10/24/19 05:08 10/24/19 21:38 Heparin SUBCUT 5,000 unit Q8H KURT Administration Sodium Chloride 1,000 mls @ 100 m ls/hr 10/24/19 05:08 10/29/19 08:01 Sodium Chloride 0.9% IV 100 mls/hr .Q10H KURT Administration Dextrose 500 mls @ 100 mls /hr 10/24/19 05:08 D5w IV ONCE PRN Adult Acute Hypog lycemia Prot Protocol Insulin Aspart 0 unit 10/24/19 08:00 10/29/19 07:10 Novolog SUBCUT Not Given WM&BEDTIME KURT Protocol Insulin Glargine 15 unit 10/24/19 21:00 10/28/19 21:09 Lantus SUBCUT 15 unit BEDTIME KURT Administration Lanolin 1 applic 10/27/19 04:49 10/27/19 04:54 Lanolin Oint TOPICAL 1 applic PRN PRN Administration DRYNESS Potassium Chloride 40 meq 10/26/19 09:00 10/28/19 08:32 Potassium Chlori de Oral Liquid PO 40 meq DAILY KURT Administration Senna/Docusate Sod ium 1 tab 10/24/19 05:08 Senna-S PO DAILY PRN CONSTIPATION No Known Allergies Allergy (Verified 10/24/19 02:19) Vitals/I&O/Wt Last Vital Signs Temp 98.3 F 10/30/19 14:41 Pulse 77 10/30/19 14:41 Resp 17 10/30/19 14:41 BP 150/64 10/30/19 14:41 Pulse Ox 98 10/30/19 14:41 10/30/19 10/30/19 10/30/19 06:59 14:59 22:59 Intake Total 300 / 1660 120 / 120 Output Total 550 / 1550 1400 / 1400 100 / 1500 Balance -250 / 110 -1280 / -1280 -100 / -1380 Physical Exam Narrative: EXAM NARRATIVE: GEN: Awake, alert and oriented, no acute distress CVS: S1S2 N RS: CTA B/L Abd: Soft, nt/nd , bs+ BACK PANEL PADDER: no focal neuro deficits Data : 10/30/19 06:50 10/30/19 06:50 A&P Assessment and plan (1) Narrow complex tachycardia: -telemetry monitoring -rate controlled, NSR; off Cardizem drip, on oral Cardizem -continue to monitor vital signs; stable -Anticoagulation with heparin drip discontinued due to noted worsening anemia and continued thrombocytopenia. Does not seem to be a good candidate for predatory animal exterminator anticoagulation but perhaps if stability or improvement in platelet count and Hg, may consider initiation of Eliquis or at least aspirin -would benefit from fdc anticoagulation, [id number] score of 4 -Echo: EF=65%, no RWMA, trace TR Status: Resolved (2) Acute kidney injury: -Noted acute renal impairment which is likely due to poor oral intake and subsequent dehydration, medication induced -Continue to monitor renal function, avoid nephrotoxins, renally dose meds. 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 Current level may become new baseline Status: Acute (5) Diabetes: -IDDM type II; A1c-7.2 -continue accucheks, ISS, hypoglycemia precautions Status: Chronic Qualifiers: Diabetes mellitus type: type 2 Diabetes mellitus predatory animal exterminator insulin use: with fdc use Diabetes mellitus complication status: with kidney complications Diabetes mellitus complication detail: with chronic kidney disease Chronic kidney disease stage: stage 3 (moderate) Qualified Code(s): E11.22 - Type 2 diabetes mellitus with diabetic chronic kidney disease; N18.3 - Chronic kidney disease, stage 3 (moderate); Z79.4 - [facility] (current) use of insulin (6) GERD (gastroesophageal reflux disease): -on famotidine Status: Chronic Qualifiers: Esophagitis presence: esophagitis presence not specified Qualified Code(s): K21.9 - Gastro-esophageal reflux disease without esophagitis (7) Hypertension: -normotensive currently, continue to monitor vital signs -hold ACEi, diuretics due to renal impairment -On oral Cardizem due to atrial flutter Status: Chronic Qualifiers: Hypertension type: essential hypertension Qualified Code(s): I10 - Essential (primary) hypertension Additional A&P Information -Previously noted to have a left ureteral obstruction with mild to moderate left hydronephrosis and proximal left hydroureter status post left ureteral stent placement that was removed by Dr. Castillo on 07/31 -Cholelithiasis, had prior workup including US and MRCP in 06/2019 with no noted cholecystitis or choledocholithiasis -hx of uterine cancer s/p hysterectomy -Advanced age -Constipation, fecal retention on imaging; bowel regimen -Chronic lumbar spine compression fractures -Acute thrombocytopenia; previous platelet counts wnl; off heparin drip; stable platelet count -Hypocalcemia; corrected Ca-8.6 -Has intermittently spike some temperatures and there is noted question of bilateral lower lobe infiltrates on CT scan so we will add empiric oral antibiotic treatment. Blood cultures prelim negative. -Noted intermittent confusion, primarily short-term memory, sometimes forgets that her has visited her while here; suspect some degree of dementia -GI ppx with famotidine -DVT ppx with SCDs, no AC due to anemia and thrombocytopenia -fall precautions -Dispo: home, services arranged -Code status: FULL code Attestations Medical Necessity Statement*: awaiting optimization Coding Level of Care Code Acute Health Care Marketing Specialist for Chg Fwd Diagnoses Narrow complex tachycardia I47.1 Acute kidney injury N17.9 Hyperglycemia due to diabetes mellitus E11.65 Hyponatremia E87.1 Diabetes E11.22; N18.3; Z79.4 Diabetes mellitus type: type 2 Diabetes mellitus fdc insulin use: with predatory animal exterminator use Diabetes mellitus complication status: with kidney complications Diabetes mellitus complication detail: with chronic kidney disease Chronic kidney disease stage: stage 3 (moderate) GERD (gastroesophageal reflux disease) K21.9 Esophagitis presence: esophagitis presence not specified Hypertension I10 Hypertension type: essential hypertension
--- NOTE | 2019-10-30 17:48 | PC.NURSE ---
Pt sitting up in chair, at bedside. Signee administered 1800 medications and pt refused to hold her cup to take pills. Pt cursing and states, get me back in the damn bed. Pt refused to stand and pivot to bed. ALARM SIGNALER had to lift her to transfer to bed. Pt had been transferring herself independently from chair to BSC prior to this.
[2019-10-30 19:01] VITALS: BP 131/67; PULSE 108; RESP 25; TEMP 38.4; O2SAT 97
[2019-10-30] MEDS: acetaminophen 325 mg Tablet 650 MG PO (19:43)
[2019-10-30 20:46] LABS: Glucose Point of Care 127 mg/dL (70-110)
[2019-10-30] MEDS: insulin glargine 100 units/1 mL 15 UNIT SUBCUT (20:59)
[2019-10-30 23:04] VITALS: BP 130/61; PULSE 81; RESP 22; TEMP 36.7; O2SAT 97
[2019-10-31 03:00] VITALS: BP 155/79; PULSE 80; RESP 18; TEMP 36.9; O2SAT 98
[2019-10-31 06:41] LABS: Glucose Point of Care 118 mg/dL (70-110)
[2019-10-31 08:08] VITALS: BP 146/68; PULSE 90; RESP 24; TEMP 36.7; O2SAT 97
[2019-10-31] MEDS: famotidine 20 mg/2 mL INJ IVP (08:51)
[2019-10-31] MEDS: amoxicillin-clav 875-125 mg Tablet 1 TAB PO (08:51)
[2019-10-31] MEDS: potassium chloride oral liq 20 mEq/15 mL UDC 40 MEQ PO (08:54)
--- NOTE | 2019-10-31 09:23 | PM.PN ---
Subjective Subjective: Interval history: tmax 101.2F overnight, no chills, c/o generalized aches and pain all over, no focal complaints. Denies dysuria. Labs pending this morning. Medications: Reviewed: Yes Medication Review Details: Active Medications Generic Name Dose Route Start Last Admin Trade Name Freq PRN Reason Stop Dose Admin Acetaminophen 650 mg 10/26/19 20:31 10/27/19 18:47 Tylenol PO 650 mg Q4H PRN Administration MILD PAIN OR INCR EASE TEMP Amoxicillin/Clavul anate Potassium 1 tab 10/28/19 13:45 10/28/19 17:05 Augmentin 875-12 5 Mg PO Not Given BID KURT Protocol Dextrose 25 ml 10/24/19 05:08 D50w IVP ONCE PRN hypoglycemia prot ocol Protocol Dextrose 50 ml 10/24/19 05:08 D50w IVP PRN PRN hypoglycemia prot ocol Protocol Diltiazem HCl 30 mg 10/25/19 09:45 10/29/19 02:57 Cardizem PO 30 mg Q6H KURT Administration Famotidine 20 mg 10/24/19 09:15 10/28/19 21:08 Pepcid Inj IVP 20 mg Q12H KURT Administration Glucagon 1 mg 10/24/19 05:08 Glucagen IM ONCE PRN Adult Acute Hypog lycemia Prot. Protocol Heparin Sodium (Be ef Lung) 5,000 unit 10/24/19 05:08 10/24/19 21:38 Heparin SUBCUT 5,000 unit Q8H KURT Administration Sodium Chloride 1,000 mls @ 100 m ls/hr 10/24/19 05:08 10/29/19 08:01 Sodium Chloride 0.9% IV 100 mls/hr .Q10H KURT Administration Dextrose 500 mls @ 100 mls /hr 10/24/19 05:08 D5w IV ONCE PRN Adult Acute Hypog lycemia Prot Protocol Insulin Aspart 0 unit 10/24/19 08:00 10/29/19 07:10 Novolog SUBCUT Not Given WM&BEDTIME KURT Protocol Insulin Glargine 15 unit 10/24/19 21:00 10/28/19 21:09 Lantus SUBCUT 15 unit BEDTIME KURT Administration Lanolin 1 applic 10/27/19 04:49 10/27/19 04:54 Lanolin Oint TOPICAL 1 applic PRN PRN Administration DRYNESS Potassium Chloride 40 meq 10/26/19 09:00 10/28/19 08:32 Potassium Chlori de Oral Liquid PO 40 meq DAILY KURT Administration Senna/Docusate Sod ium 1 tab 10/24/19 05:08 Senna-S PO DAILY PRN CONSTIPATION No Known Allergies Allergy (Verified 10/24/19 02:19) Vitals/I&O/Wt Last Vital Signs Temp 98.1 F 10/31/19 08:08 Pulse 90 10/31/19 08:08 Resp 24 H 10/31/19 08:08 BP 146/68 10/31/19 08:08 Pulse Ox 97 10/31/19 08:08 10/30/19 10/31/19 10/31/19 22:59 06:59 14:59 Intake Total 60 / 180 150 / 330 Output Total 200 / 1600 200 / 1800 325 / 325 Balance -140 / -1420 -50 / -1470 -325 / -325 Physical Exam Narrative: EXAM NARRATIVE: GEN: Awake, alert and oriented, no acute distress CVS: S1S2 N RS: CTA B/L Abd: Soft, c/o generalized discomfort to palpation all over the abdomen and back without any localizing signs SENIOR NET APPLICATION DEVELOPER: no focal neuro deficits EXT: no edema, winces on touching calves Data : 10/30/19 06:50 10/30/19 06:50 A&P Assessment and plan (1) Narrow complex tachycardia: Status: Resolved (2) Acute kidney injury: Status: Resolved (3) Hyperglycemia due to diabetes mellitus: -Accuchecks, ISS and long acting insulin if oral intake improving -hypoglycemia precautions Status: Acute (4) Hyponatremia: -Sodium level improving but still lower than normal, has improved minimally with IVF so will d/c this today. Current level may become new baseline Status: Acute (5) Diabetes: -IDDM type II; A1c-7.2 -continue accucheks, ISS, hypoglycemia precautions Status: Chronic Qualifiers: Diabetes mellitus type: type 2 Diabetes mellitus termite treater helper insulin use: with skilled nursing use Diabetes mellitus complication status: with kidney complications Diabetes mellitus complication detail: with chronic kidney disease Chronic kidney disease stage: stage 3 (moderate) Qualified Code(s): E11.22 - Type 2 diabetes mellitus with diabetic chronic kidney disease; N18.3 - Chronic kidney disease, stage 3 (moderate); Z79.4 - intermodal dispatcher (current) use of insulin (6) GERD (gastroesophageal reflux disease): -on famotidine Status: Chronic Qualifiers: Esophagitis presence: esophagitis presence not specified Qualified Code(s): K21.9 - Gastro-esophageal reflux disease without esophagitis (7) Hypertension: Status: Chronic Qualifiers: Hypertension type: essential hypertension Qualified Code(s): I10 - Essential (primary) hypertension Additional A&P Information 84-year-old lady currently admitted 22 with chief complaint of presenting with generalized weakness. Hospital course has been notable for intermittent fevers upwards of 100 Fahrenheit, last night up to 101.2 Fahrenheit. Has a pertinent past history of recurrent cystitis and obstructive left pyelonephritis in June for which she required emergent stent placement, subsequently removed in July. Etiology for obstruction was likely infectious/, no evidence of stones or malignancy on subsequent cystoscopies was noted. Current hospital issues include SVT, now rate controlled with Cardizem p.o. after being on Cardizem drip initially. Other issues include hyponatremia, appears that recent baseline is with sodium of 1 29-1 30. Of note was symptomatic upon admission with the same. # SVT -telemetry monitoring -rate controlled, NSR; off Cardizem drip, on oral Cardizem, continue same -Anticoagulation with heparin drip due to concerns for A fib/flutter with RVR earlier in admission course. discontinued due to noted worsening anemia and continued thrombocytopenia. Does not seem to be a good candidate for skilled nursing anticoagulation would consider at least aspirin -would benefit from termite treater helper anticoagulation, [id number] score of 4 -Echo 10/24: EF=65%, no RWMA, trace TR. 1 of the aortic valve leaflets is heavily calcified and appears mobile. There is a low probability of a vegetation, no other suspicion for endocarditis at this time. # LION -Noted acute renal impairment which is likely due to poor oral intake and subsequent dehydration, medication induced from HCTZ -Continue to monitor renal function, avoid nephrotoxins, renally dose meds. 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; baseline Cr is around 1.5-1.7 though has been as high as 2.0 in the past; renal function improving -hold ACEi and diuretics -uric acid-11.2, no joint pain or swelling currently #HTN -normotensive currently, continue to monitor vital signs -hold ACEi, diuretics due to renal impairment -On oral Cardizem due to atrial flutter # ongoing fever, febrile to 101F last night, has been having intermittent low grade fever since admission Thus far w/up includes CXR without gross infiltrates upon admission, CTAP with no urinary obstruction upon admission, showed constipation, blood cx negative from admission. c/o cough, though this has not been witnessed, heartburn , no constipation or diarrhea at this time. No dysuria, though hard to relate as patient winces on abdominal palpation all over, and also with CVA tenderness checks. I am unable to asceratin if this is just related to her overall discomfot or if she is truly experiencing pain here. Check CT CAP to evaluate for any developing infiltrates/HCAP, developing urinary obstrcution &/or biliary obstruction (previous h/o cholelithaisis), serum lipase given c/o heartburn and abd pain, LE doppler and urinalysis, tick panel, blood cx d/c augmentin , start Ceftriaxone 1 g iv q24h empirically -Acute thrombocytopenia; previous platelet counts wnl; off heparin drip; stable platelet count, check tick panel -Hypocalcemia; corrected Ca-8.6 -Noted intermittent confusion, primarily short-term memory, sometimes forgets that her has visited her while here; suspect some degree of dementia -GI ppx with famotidine -DVT ppx with SCDs, no AC due to anemia and thrombocytopenia -fall precautions -Dispo: home, services arranged -Code status: FULL code Attestations Medical Necessity Statement*: ongoing fever >101F in spite of empiric abx coverage that need further evaluation Coding Level of Care Code Acute Cloth Finishing Range Operator for Chg Fwd Diagnoses Narrow complex tachycardia I47.1 Acute kidney injury N17.9 Hyperglycemia due to diabetes mellitus E11.65 Hyponatremia E87.1 Diabetes E11.22; N18.3; Z79.4 Diabetes mellitus type: type 2 Diabetes mellitus termite treater helper insulin use: with skilled nursing use Diabetes mellitus complication status: with kidney complications Diabetes mellitus complication detail: with chronic kidney disease Chronic kidney disease stage: stage 3 (moderate) GERD (gastroesophageal reflux disease) K21.9 Esophagitis presence: esophagitis presence not specified Hypertension I10 Hypertension type: essential hypertension
--- NOTE | 2019-10-31 09:34 | PC.SOCIAL ---
IMM Update Pg. 2 of IMM given and explained to patient, copy provided to patient.
--- NOTE | 2019-10-31 09:44 | CT_ITS ---
WS: [id number] CT CHEST, ABDOMEN, AND PELVIS TECHNIQUE: Noncontrast CT of the chest, abdomen, and pelvis with coronal and sagittal reformatted hamida ges. CLINICAL INFORMATION: evalute for pneumonia, urinary obstruction COMPARISON: CT abdomen pelvis October 24, 2019 DLP: 1064.[address] scans at [facility] use at least one of these dose optimization techniques: automat ed exposure control; mA and/or kV adjustment per patient size (includes targeted exams where dose is matched to clinical indication); or iterative reconstruction. CT CHEST: Aortic calcification. Coronary calcification. Small bilateral pleural effusions. Bibasilar atelectasi s. Mild chronic emphysematous changes. No acute pulmonary infiltrates. No mediastinal or hilar lympha denopathy. Normal bronchial tree. No axillary lymphadenopathy. No focal pneumonia. Chronic right rib fractures with callus formation. CT ABDOMEN AND PELVIS: Noncontrast liver is normal. Dense cholelithiasis with a large gallstone measuring 1.7 cm unchanged. Gallbladder otherwise appears normal. Vascular calcification. Splenic artery calcification. Normal GE junction. Splenic granulomas. Normal adrenal glands. Bilateral renal cortical atrophy. No hydronephr osis. No obstructing renal or ureteral calculi. Right lower pole renal cyst measuring 2.5 cm unchange d. Normal caliber abdominal aorta. Dense aortic calcification. Dense calcification at the origin of the celiac and SMA. Dense calcification renal artery origins. Sigmoid diverticulosis. No free fluid in th e pelvis. Urine distended bladder. No evidence of high-grade small or large bowel obstruction. Modera te thoracic kyphosis. Compression of a T7 vertebral body with vertebral plana and focal kyphosis. Chr onic compression of the superior endplates at L2 and L3 with mild retropulsion posterior superior cor julia with mild central canal stenosis. CT/CT chest abd pel wo con IMPRESSION: 1. Small bilateral pleural effusions with bibasilar atelectasis. No focal pneu monia. 2. No mediastinal or hilar lymphadenopathy. 3. No acute findings in the abdomen or pelvis. 4. Urine distended bladder. 5. Stable cholelithiasis. 6. Bilateral renal cortical atrophy. No hydronephrosis. 7. Chronic appearing compression fractures described above.
--- NOTE | 2019-10-31 10:10 | PC.NURSE ---
Patient to CT scan/
[2019-10-31 10:14] LABS: Basophils % 0.7 %; Hematocrit 29.4 % (37.0-47.0); Hemoglobin 9.5 g/dL (11.5-15.3); Lymphocytes # 1.9 10^3/uL (0.8-4.8); Lymphocytes % 32.9 %; Mean Corpuscular HGB Conc 32.3 g/dL (30.0-36.0); Mean Corpuscular Hemoglobin 26.7 pg (28.0-34.0); Mean Corpuscular Volume 82.6 fL (81-99); Monocytes # 0.7 10^3/uL (0.2-0.9); Monocytes % 12.8 %; Neutrophils # 3.04 10^3/uL (1.8-7.7); Neutrophils % 52.6 %; Nucleated Red Blood Cells % 0 %; Platelet Count 183 10^3/cmm (130-400); Red Blood Count 3.56 10^6/uL (4.1-5.3); Red Cell Distribution Width 18.3 % (12.1-15.1); White Blood Count 5.8 10^3/uL (4.0-10.0)
--- NOTE | 2019-10-31 10:17 | USCV_ITS ---
Melissa Fermin Age: 84 Gender: F : 1935 Exam Date: 10/31/2019 12:54 Ordering Phys: Saira Tucker MD Technologist: Mary Fair Exam Location: [facility] [place] Indication: BILATERAL CALF PAIN HISTORY: Lower extremity pain. PROCEDURES: Venous duplex imaging was performed in bilateral lower extremities. The following venous structures were evaluated: common femoral vein, profunda vein, proximal portion of the greater saphenous vein, superficial femoral vein, and the popliteal vein. In addition, the posterior tibial and peroneal trunk were evaluated. FINDINGS: Normal 2-D Doppler and augmentation and compressibility throughout the lower extremity venous structures. Additional imaging through the proximal calf veins also reveals no thrombus. Limited evaluation of the greater saphenous vein is patent with no thrombus.. CONCLUSIONS No evidence of right lower extremity DVT. No evidence of left lower extremity DVT. Saud Schmid MD (Electronically Signed) Final Date: 31 October 2019 15:39 S
[2019-10-31 10:23] LABS: Alanine Aminotransferase 33 U/L (0-33); Albumin Level 2.5 g/dL (3.5-5.2); Alkaline Phosphatase 83 IU/L (35-105); Anion Gap 14.9 (5-19); Aspartate Amino Transferase 37 U/L (0-32); Blood Urea Nitrogen 15 mg/dL (8-23); Calcium 7.4 mg/dL (8.5-10.5); Carbon Dioxide 14 mmol/L (22-29); Chloride 103 mmol/L (98-107); Globulin 4.9 g/dL (1.3-4.6); Glucose 160 mg/dL (65-115); Osmolality Calculated 260 mOsm/kg (285-295); Sodium 125 mmol/L (136-145); Total Bilirubin 0.6 mg/dL (0.15-1.2); Total Protein 7.4 g/dL (6.6-8.7)
--- NOTE | 2019-10-31 10:29 | PC.NURSE ---
PO protonix not given this am as IV dose of protonix already given thia am.
[2019-10-31 10:32] LABS: Potassium 6.9 mmol/L (3.5-5.1)
[2019-10-31 10:36] LABS: Slide Review Slide Review Perform
[2019-10-31 10:45] LABS: Glucose Point of Care 157 mg/dL (70-110)
[2019-10-31] MEDS: dextrose 50% syringe 50 mL 25 ML IVP (10:59)
[2019-10-31] MEDS: insulin regular-human 10 UNIT in SYRINGE 1 EACH IVP (11:00)
[2019-10-31] MEDS: lidocaine 2% viscous 15 ML, aluminum-mag hydrox-simethicon 30 ML, sucralfate oral liq 1 GM PO (11:01)
[2019-10-31] MEDS: calcium carbonate 500 mg Chew Tablet PO ×4 (11:01→22:57)
[2019-10-31] MEDS: cefTRIAXone 1,000 MG in sodium chloride 0.9% (plus) 50 ML 100 MG IV (11:02)
[2019-10-31] MEDS: sodium polystyrene sulfonate 15 gm/60 mL Btl PO (11:38)
[2019-10-31 11:48] VITALS: BP 125/62; PULSE 79; RESP 23; TEMP 36.6; O2SAT 93
--- NOTE | 2019-10-31 12:20 | PC.NURSE ---
Unable to collect urine & stool specimens s both times patient used the BSC she had mixed urine & stool.
[2019-10-31 12:27] LABS: Glucose Point of Care 140 mg/dL (70-110)
--- NOTE | 2019-10-31 14:24 | PC.NURSE ---
Patient had large liquid brown BM.
[2019-10-31 15:51] LABS: Potassium 5.5 mmol/L (3.5-5.1)
[2019-10-31 17:04] LABS: Glucose Point of Care 136 mg/dL (70-110)
[2019-10-31 19:00] VITALS: BP 138/72; PULSE 91; RESP 20; TEMP 36.8; O2SAT 98
--- NOTE | 2019-10-31 19:42 | PC.NURSE ---
Rounding: Patient resting in bed. Bed alarm active. Patient denies pain at this time. Patient denies any needs at this time. Call light is within reach.
[2019-10-31 20:19] LABS: Glucose Point of Care 156 mg/dL (70-110)
[2019-10-31] MEDS: insulin glargine 100 units/1 mL 15 UNIT SUBCUT (20:35)
[2019-10-31 23:13] LABS: Glucose Point of Care 70 mg/dL (70-110)
--- NOTE | 2019-10-31 23:22 | PC.NURSE ---
Patient given 4 oz of orange juice for her blood glucose
[2019-10-31 23:23] VITALS: BP 135/69; PULSE 82; RESP 20; TEMP 36.8; O2SAT 97
[2019-11-01] MEDS: acetaminophen 325 mg Tablet 650 MG PO (02:00)
[2019-11-01 02:09] LABS: Glucose Point of Care 93 mg/dL (70-110)
[2019-11-01] MEDS: calcium carbonate 500 mg Chew Tablet PO ×6 (03:13→22:20)
[2019-11-01 03:17] VITALS: BP 139/75; PULSE 86; RESP 22; TEMP 36.5; O2SAT 96
[2019-11-01 06:14] LABS: Glucose Point of Care 105 mg/dL (70-110)
--- NOTE | 2019-11-01 06:27 | PC.NURSE ---
Unable to obtain urine and stool sample due mixed.
--- NOTE | 2019-11-01 07:04 | PC.NURSE ---
Patient transferred to [facility] via bed. Report called and SBAR sent. Patient stable and alert and oriented. All personal belongings in hand.
[2019-11-01 07:54] VITALS: BP 134/62; PULSE 68; RESP 18; TEMP 36.5; O2SAT 96
[2019-11-01] MEDS: cefTRIAXone 1,000 MG in sodium chloride 0.9% (plus) 50 ML 100 MG IV (10:20)
[2019-11-01] MEDS: pantoprazole DR 40 mg Tablet PO (10:20)
[2019-11-01 10:45] LABS: Glucose Point of Care 119 mg/dL (70-110)
[2019-11-01 10:58] VITALS: BP 146/76; PULSE 77; RESP 18; TEMP 36.5; O2SAT 98
[2019-11-01 15:29] VITALS: BP 147/70; PULSE 81; RESP 18; TEMP 36.5; O2SAT 98
[2019-11-01 16:10] LABS: Glucose Point of Care 141 mg/dL (70-110)
--- NOTE | 2019-11-01 17:51 | PM.PN ---
Subjective Subjective: Interval history: feels subjectively improved today. 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 Hospital course has been notable for intermittent fevers upwards of 100 Fahrenheit, last night up to 101.2 Fahrenheit. Has a pertinent past history of recurrent cystitis and obstructive left pyelonephritis in June for which she required emergent stent placement, subsequently removed in July. Etiology for obstruction was likely infectious/, no evidence of stones or malignancy on subsequent cystoscopies was noted. Current hospital issues include SVT, now rate controlled with Cardizem p.o. after being on Cardizem drip initially. Other issues include hyponatremia, appears that recent baseline is with sodium of 1 29-1 30. Of note was symptomatic upon admission with the same. # SVT -telemetry monitoring -rate controlled, NSR; off Cardizem drip, on oral Cardizem, continue same -Anticoagulation with heparin drip due to concerns for A fib/flutter with RVR earlier in admission course. discontinued due to noted worsening anemia and continued thrombocytopenia. Does not seem to be a good candidate for vermin exterminator anticoagulation would consider at least aspirin -would benefit from penitentiary anticoagulation, [id number] score of 4 -Echo 10/24: EF=65%, no RWMA, trace TR. 1 of the aortic valve leaflets is heavily calcified and appears mobile. There is a low probability of a vegetation, no other suspicion for endocarditis at this time. # LION -Noted acute renal impairment which is likely due to poor oral intake and subsequent dehydration, medication induced from HCTZ -Continue to monitor renal function, avoid nephrotoxins, renally dose meds. 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; baseline Cr is around 1.5-1.7 though has been as high as 2.0 in the past; renal function improving -hold ACEi and diuretics -uric acid-11.2, no joint pain or swelling currently #HTN -normotensive currently, continue to monitor vital signs -hold ACEi, diuretics due to renal impairment -On oral Cardizem due to atrial flutter # ongoing fever, febrile to 101F last night, has been having intermittent low grade fever since admission , now afebrile approx 48 hrs, symptomatically improving Thus far w/up includes CXR without gross infiltrates upon admission, CTAP with no urinary obstruction upon admission, showed constipation, blood cx negative from admission. Check CT CAPwithout any new developing infiltrates/HCAP, CT AP without any overt source of infection, LE doppler negtaive for DVT and urinalysis negative, tick panel pending, blood cx d/c augmentin , start Ceftriaxone 1 g iv q24h empirically -Acute thrombocytopenia; previous platelet counts wnl; off heparin drip; stable platelet count, check tick panel -Hypocalcemia; corrected Ca-8.6 -Noted intermittent confusion, primarily short-term memory, sometimes forgets that her has visited her while here; suspect some degree of dementia -GI ppx with famotidine -DVT ppx with SCDs, no AC due to anemia and thrombocytopenia -fall precautions -Dispo: home, services arranged -Code status: FULL code Attestations Medical Necessity Statement*: improving today, planned discharge in the upcoming 24 hrs if lytes normal Coding Level of Care Code Acute Supervisor [employer] for [facility] Fwd Diagnoses Narrow complex tachycardia I47.1 Acute kidney injury N17.9 Hyperglycemia due to diabetes mellitus E11.65 Hyponatremia E87.1 Diabetes E11.22; N18.3; Z79.4 Diabetes mellitus type: type 2 Diabetes mellitus vermin exterminator insulin use: with penitentiary use Diabetes mellitus complication status: with kidney complications Diabetes mellitus complication detail: with chronic kidney disease Chronic kidney disease stage: stage 3 (moderate) GERD (gastroesophageal reflux disease) K21.9 Esophagitis presence: esophagitis presence not specified Hypertension I10 Hypertension type: essential hypertension
[2019-11-01 20:00] VITALS: BP 147/79; PULSE 86; RESP 16; TEMP 36.7; O2SAT 96
[2019-11-01 20:47] LABS: Glucose Point of Care 151 mg/dL (70-110)
[2019-11-01] MEDS: insulin glargine 100 units/1 mL 15 UNIT SUBCUT (20:47)
[2019-11-01 23:20] VITALS: BP 131/64; PULSE 68; RESP 14; TEMP 36.7; O2SAT 95
[2019-11-02] MEDS: calcium carbonate 500 mg Chew Tablet PO ×3 (02:51→08:45)
[2019-11-02 03:45] VITALS: BP 143/65; PULSE 70; RESP 16; TEMP 36.8; O2SAT 96
[2019-11-02 05:10] LABS: Basophils % 0.3 %; Eosinophils % 0.2 %; Hematocrit 24.6 % (37.0-47.0); Hemoglobin 8.3 g/dL (11.5-15.3); Lymphocytes # 2.4 10^3/uL (0.8-4.8); Mean Corpuscular HGB Conc 33.7 g/dL (30.0-36.0); Mean Corpuscular Hemoglobin 27.1 pg (28.0-34.0); Mean Corpuscular Volume 80.4 fL (81-99); Mean Platelet Volume 11.8 fL (7.4-10.4); Monocytes # 0.5 10^3/uL (0.2-0.9); Monocytes % 8.2 %; Neutrophils % 52.2 %; Nucleated Red Blood Cells % 0 %; Platelet Count 225 10^3/cmm (130-400); Red Blood Count 3.06 10^6/uL (4.1-5.3); Red Cell Distribution Width 17.8 % (12.1-15.1); White Blood Count 6.3 10^3/uL (4.0-10.0)
[2019-11-02 05:29] LABS: Alanine Aminotransferase 30 U/L (0-33); Albumin Level 2.3 g/dL (3.5-5.2); Alkaline Phosphatase 75 IU/L (35-105); Anion Gap 12.8 (5-19); Aspartate Amino Transferase 35 U/L (0-32); Blood Urea Nitrogen 13 mg/dL (8-23); Calcium 8.6 mg/dL (8.5-10.5); Carbon Dioxide 19 mmol/L (22-29); Chloride 106 mmol/L (98-107); Globulin 4.5 g/dL (1.3-4.6); Glucose 67 mg/dL (65-115); Osmolality Calculated 270 mOsm/kg (285-295); Potassium 4.8 mmol/L (3.5-5.1); Sodium 133 mmol/L (136-145); Total Bilirubin 0.3 mg/dL (0.15-1.2); Total Protein 6.8 g/dL (6.6-8.7)
[2019-11-02 05:42] LABS: Slide Review Slide Review Perform
[2019-11-02 07:35] VITALS: BP 143/69; PULSE 75; RESP 18; TEMP 36.9; O2SAT 96
[2019-11-02] MEDS: pantoprazole DR 40 mg Tablet PO (08:45)
[2019-11-02] MEDS: cefTRIAXone 1,000 MG in sodium chloride 0.9% (plus) 50 ML 100 MG IV (08:46)
--- NOTE | 2019-11-02 09:25 | PC.SOCIAL ---
IMM Updated Page 2 of IMM updated and given to patient. Initialed, dated, and timed and placed back in chart.
[2019-11-02 11:24] LABS: Glucose Point of Care 49 mg/dL (70-110)
[2019-11-02 11:24] LABS: Glucose Point of Care 50 mg/dL (70-110)
[2019-11-02 11:32] LABS: Glucose Point of Care 96 mg/dL (70-110)
[2019-11-02 11:36] VITALS: BP 129/70; PULSE 80; RESP 18; TEMP 37
[2019-11-02 15:19] LABS: Lyme AB Screen <0.90 index
[2019-11-02 16:00] VITALS: BP 145/64; PULSE 80; RESP 16; TEMP 37; O2SAT 96
[2019-11-02 17:21] LABS: Glucose Point of Care 130 mg/dL (70-110)
--- NOTE | 2019-11-02 18:04 | P.DS_ITS ---
Discharge Providers Date of Admission: 10/24/19 04:00 Date of Discharge: November 02, 2019 Attending Provider at Admission: Stacie Grey MD Attending Provider at Discharge: Saira Tucker MD Primary Care Provider: Abdi Mack Diagnoses at Discharge Discharge Diagnosis (1) Narrow complex tachycardia: Status: Resolved (2) Acute kidney injury: Status: Resolved (3) Hyperglycemia due to diabetes mellitus: Status: Acute (4) Hyponatremia: Status: Acute (5) Diabetes: Status: Chronic Qualifiers: Diabetes mellitus type: type 2 Diabetes mellitus intermediate accountant insulin use: with care home use Diabetes mellitus complication status: with kidney complications Diabetes mellitus complication detail: with chronic kidney disease Chronic kidney disease stage: stage 3 (moderate) Qualified Code(s): E11.22 - Type 2 diabetes mellitus with diabetic chronic kidney disease; N18.3 - Chronic kidney disease, stage 3 (moderate); 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 Hospital course has been notable for intermittent fevers up to 101.2 Fahrenheit. Has a pertinent past history of recurrent cystitis and obstructive left pyelonephritis in June for which she required emergent stent placement, subsequently removed in July. Etiology for obstruction was likely infectious sludge, no evidence of stones or malignancy on subsequent cystoscopies was noted. Current hospital issues include SVT, now rate controlled with Cardizem p.o. after being on Cardizem drip initially. Other issues include hyponatremia, appears that recent baseline is with sodium of 1 29-1 30. Of note was symptomatic upon admission with the same. # SVT -telemetry monitoring -rate controlled, NSR; off Cardizem drip, on oral Cardizem, continue same at -Anticoagulation with heparin drip due to concerns for A fib/flutter with RVR earlier in admission course. discontinued due to noted worsening anemia and continued thrombocytopenia, currently stable. For now, will start ASA and refer to cardiology for further assessment. -Echo 10/24: EF=65%, no RWMA, trace TR. 1 of the aortic valve leaflets is heavily calcified and appears mobile. There is a low probability of a vegetation, no other suspicion for endocarditis at this time. # LION -Noted acute renal impairment which is likely due to poor oral intake and subsequent dehydration, medication induced from HCTZ, which is stopped, improving now -Continue to monitor renal function, avoid nephrotoxins, renally dose meds. 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 Thus far w/up includes CXR without gross infiltrates upon admission, CTAP with no urinary obstruction upon admission, showed constipation, blood cx negative from admission. Check CT CAPwithout any new developing infiltrates/HCAP, CT AP without any overt source of infection, LE doppler negtaive for DVT and urinalysis negative, tick panel pending, blood cx negative Ceftriaxone 1 g iv q24h empirically day 3 today, will complete 5 days with transition to po levaquin -Acute thrombocytopenia; previous platelet counts wnl; off heparin drip; stable platelet count, check tick panel -Hypocalcemia; corrected Ca-8.6 -Noted intermittent confusion, primarily short-term memory, sometimes forgets that her has visited her while here; suspect some degree of dementia Physical Exam Narrative: EXAM NARRATIVE: GEN: Awake, alert and oriented, no acute distress CVS: S1S2 N RS: CTA B/L Abd: Soft, nt/nd , bs+ NURSE INTERN: no focal neuro deficits Discharge Data Data Completed and Pending: Completed Studies During Hospitalization Category Date Time Status CT abdomen pelvis wo con [id number] Stat Cat Scan 10/24/19 04:[address] chest abd pel wo con Routine Cat Scan 10/31/19 09:44 Completed XR chest 1V ирина ble [id number] Stat Exams 10/24/19 03:10 Completed CV echo complete* [id number] Routine Ultrasound 10/25/19 09:44 [place] [id number] Routin e Ultrasound 10/31/19 10:17 Completed Pending at discharge Category Date Time Status Blood Culture Sta t Lab 10/31/19 10:42 Results Clostridioides Di fficile PCR Routin e Lab 11/02/19 14:10 Received Tick Panel Stat Lab 10/31/19 10:42 Results Labs from last 24 hours 11/02/19 11/02/19 11/02/19 15:24 11:29 11:04 WBC RBC Hgb Hct MCV MCH MCHC RDW Plt Count MPV Neut % (Auto) Lymph % (Auto) Bollinger % (Auto) Eos % (Auto) Baso % (Auto) Neut # (Auto) Lymph # (Auto) Bollinger # (Auto) Eos # (Auto) Baso # (Auto) Nucleated RBC % (a uto) Nucleated RBCs # Sodium Potassium Chloride Carbon Dioxide Anion Gap BUN Creatinine GFR Calculation Glucose POC Glucose 130 96 50 Calculated Osmolal ity Calcium Total Bilirubin AST ALT Alkaline Phosphata se Total Protein Albumin Globulin Lyme Ab (Wee Web B lot) 11/02/19 11/02/19 11/02/19 10:55 05:00 05:00 WBC 6.3 RBC 3.06 L Hgb 8.3 L Hct 24.6 L MCV 80.4 L MCH 27.1 L MCHC 33.7 RDW 17.8 H Plt Count 225 MPV 11.8 H Neut % (Auto) 52.2 Lymph % (Auto) 38.0 Bollinger % (Auto) 8.2 Eos % (Auto) 0.2 Baso % (Auto) 0.3 Neut # (Auto) 3.30 Lymph # (Auto) 2.4 Bollinger # (Auto) 0.5 Eos # (Auto) 0.0 Baso # (Auto) 0.0 Nucleated RBC % (a uto) 0 Nucleated RBCs # 0.0 Sodium 133 L Potassium 4.8 Chloride 106 Carbon Dioxide 19 L Anion Gap 12.8 BUN 13 Creatinine 1.5 H GFR Calculation Not Reportable Glucose 67 POC Glucose 49 Calculated Osmolal ity 270 L Calcium 8.6 Total Bilirubin 0.3 AST 35 H ALT 30 Alkaline Phosphata se 75 Total Protein 6.8 Albumin 2.3 L Globulin 4.5 Lyme Ab (Western B lot) 11/01/19 10/31/19 20:43 10:42 WBC RBC Hgb Hct MCV MCH MCHC RDW Plt Count MPV Neut % (Auto) Lymph % (Auto) Bollinger % (Auto) Eos % (Auto) Baso % (Auto) Neut # (Auto) Lymph # (Auto) Bollinger # (Auto) Eos # (Auto) Baso # (Auto) Nucleated RBC % (a uto) Nucleated RBCs # Sodium Potassium Chloride Carbon Dioxide Anion Gap BUN Creatinine GFR Calculation Glucose POC Glucose 151 Calculated Osmolal ity Calcium Total Bilirubin AST ALT Alkaline Phosphata se Total Protein Albumin Globulin Lyme Ab (Western B lot) <0.90 Vitals: Last Vital Signs Temp 98.6 F 11/02/19 16:00 Pulse 80 11/02/19 16:00 Resp 16 11/02/19 16:00 BP 145/64 11/02/19 16:00 Pulse Ox 96 11/02/19 16:00 Discharge Plan Discharge Patient Disposition: Home Condition: Stable Prescriptions: New diltiazem HCl 60 mg Capsule,Extended Release 12 Hr 60 mg PO Q12H 30 Days Qty: 60 RF: 0 Levaquin 500 mg tablet 500 mg PO DAILY 2 Days Qty: 2 RF: 0 acetaminophen 325 mg Tablet 650 mg PO Q4H PRN (Reason: Mild Pain Or Increase Temp) Qty: 0 RF: 0 Continued Lantus Solostar U-100 Insulin 100 unit/mL (3 mL) insulin pen See Rx Instructions .ROUTE .COMPLEX RF: 0 famotidine [Pepcid] 20 mg Tablet 20 mg PO DAILY RF: 0 atorvastatin 10 mg Tablet 10 mg PO DAILY RF: 0 Discontinued losartan-hydrochlorothiazide [Hyzaar] 100-25 mg Tablet 1 tab PO DAILY RF: 0 nifedipine 60 mg Tablet Extended Release 60 mg PO DAILY RF: 0 Discharge Orders: Discharge Order (Routine); Ordered 11/02/19 Ordered By: Saira Tucker Referrals: [facility] [Other] (Office was closed early but the answering services will leave them a message for in the morning about discharge.) Abdi Mack MD [Primary Care Provider] - 11/07/19 2:00 pm (You have an hospital follow up appointment on November 06 at 2:00pm.) Discharge Diet: Diabetic Discharge Activity: Resume usual activity Discharge Attestations Time Spent in Discharge Care*: greater than 30 min Status at Discharge: Cognitive status at discharge: cognitively intact , Behavioral status at discharge: cooperative , Quality Metrics Clinical Quality Measures During this hospital stay, did patient experience: None Coding Level of Care Code 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 [employer] Fwd Diagnoses Narrow complex tachycardia I47.1 Acute kidney injury N17.9 Hyperglycemia due to diabetes mellitus E11.65 Hyponatremia E87.1 Diabetes E11.22; N18.3; Z79.4 Diabetes mellitus type: type 2 Diabetes mellitus care home insulin use: with care home use Diabetes mellitus complication status: with kidney complications Diabetes mellitus complication detail: with chronic kidney disease Chronic kidney disease stage: stage 3 (moderate) GERD (gastroesophageal reflux disease) K21.9 Esophagitis presence: esophagitis presence not specified Hypertension I10 Hypertension type: essential hypertension
[2019-11-02 19:20] VITALS: BP 145/64; PULSE 80; RESP 16; TEMP 37; O2SAT 96
--- NOTE | 2019-11-02 19:22 | PC.NURSE ---
Taken via [facility] to spouse car. Given discharge instructions on day shift by braulio and x2 prescriptions. Iv removed
[2019-11-04 16:50] LABS: RMSF IGG DETECTED; RMSF IGM NOT DETECTED
[2019-11-04 22:05] LABS: E. Chaffeensis AB IGM <1:20; Interpretation PAST INFECTION
== END 2019-11-02 18:50 | disposition home or self-care (01) | DRG 683 ==
LOC: ER 03:05 → ICU 04:22 → MEDSURG 11:41 → CSU 10-25 04:33 → MEDSURG 11-01 06:54
PROVIDERS: Family Medicine; Admitting Provider Internal Medicine; Emergency Provider Emergency Medicine; PCP Family Medicine; Visit Provider Student in an Organized Health Care Education/Training Program
DX: N17.9 Acute kidney failure, unspecified (principal); E87.1 Hypo-osmolality and hyponatremia; I47.1 Supraventricular tachycardia; E11.22 Type 2 diabetes mellitus with diabetic chronic kidney disease; D69.6 Thrombocytopenia, unspecified; E11.65 Type 2 diabetes mellitus with hyperglycemia; N18.3 Chronic kidney disease, stage 3 (moderate); K21.9 Gastro-esophageal reflux disease without esophagitis; I12.9 Hypertensive chronic kidney disease with stage 1 through stage 4 chronic kidney disease, or unspecified chronic kidney disease; F03.90 Unspecified dementia, unspecified severity, without behavioral disturbance, psychotic disturbance, mood disturbance, and anxiety; I48.91 Unspecified atrial fibrillation; M81.0 Age-related osteoporosis without current pathological fracture; Z85.42 Personal history of malignant neoplasm of other parts of uterus; Z87.891 Personal history of nicotine dependence
CPT/HCPCS: 12345; 36415; 36416; 51701; 51798; 71045; 71250; 74176; 80048; 80053; 80500; 81001; 81003; 82040; 82570; 82962; 83605; 83930; 83935; 84132; 84295; 84300; 84443; 84550; 85025; 85610; 85730; 86618; 86666; 86757; 87040; 87493; 93005; 93306; 93970; 96372; 96375; 99284; J0610; J0696; J1644; J1815 ×2; J3490; J7030

== ENCOUNTER → 2020-04-23 09:34 | Outpatient (BNVA) | payer MEDICARE, OTHER, SELFPAY | PROVIDERS: PCP Family Medicine; Visit Provider Nurse Practitioner Family | DX: N30.80 Other cystitis without hematuria (principal) | CPT/HCPCS: 81003 ==